=== PATIENT | male | born 1935 | race Caucasian/White ===

== ENCOUNTER 2017-07-19 23:31 | Inpatient (IN) | payer OTHER, MEDICARE ==
[~2017-07-19] VITALS: Ht 175.3 cm; Wt 92.0 kg
[~2017-07-19 23:31] MED LIST: AMLO5TAB2 PO; CEPH-460 PO; HYDR-3533 PO; LEVA750T PO; LIPI10TA PO; LISI-519 PO; METF1000 PO; PLAV75TA29 PO; TRIMSOL LEFT EAR
[2017-07-19 23:37] VITALS: BP 135/108; PULSE 118; RESP 26; TEMP 98.9; O2SAT 98
[2017-07-19 23:43] VITALS: O2SAT 97
[2017-07-19] MEDS ORDERED: NITROGLYCERIN 2% OINT 1 GM PACKET TOPICAL ONE (23:45)
[2017-07-19] MEDS ORDERED: RESP: ALBUTEROL 2.5 MG/IPRATROPIUM 0.5 MG NEB (SCH) INH ONE (23:45)
[2017-07-19] MEDS ORDERED: SODIUM CHLORIDE 0.9% FLUSH 10 ML FLUSH IVF PRN (23:45)
[2017-07-19] MEDS ORDERED: ASPIRIN 81 MG CHEW TAB CHEW ONE (23:45)
[2017-07-19] MEDS ORDERED: ISOS60TA PO (23:46)
[2017-07-19] MEDS ORDERED: FURO20TA PO (23:46)
[2017-07-19] MEDS ORDERED: VITA100036 PO (23:46)
[2017-07-20] VITALS (7 sets, daily range): BP systolic 100–141; BP diastolic 53–76; PULSE 50–108; RESP 16–20; TEMP 97.4–98.2; O2SAT 94–98
--- NOTE | 2017-07-20 00:04 | PD ---
HPI Chief Complaint: Respiratory Distress Time Seen by Provider: 23:33 Travel History International Travel<30 days: No Contact w/Intl Traveler<30days: No Traveled to known affect area: No History of Present Illness HPI The patient is an 82 year old male who presents to the [facility] emergency department with a history of reportedly suddenly feeling nauseated while drinking water prior to arrival. He reports that he walked over to a friend's house that lives nearby before calling ambulance services. The patient was concerned that he may be having another heart attack. The patient denies having any chest pain or chest pressure. He denies vomiting. He reports that he did experience dyspnea on exertion on the walk over to his friend's. The patient reports that he does have a prior history of smoking. He reports that he does use inhalers. He reports that he has had 3 days of increased fatigue, chest congestion, and a cough. The patient is unsure whether the cough is been productive of any mucus. The patient is unfortunately a poor historian. He cannot recall the name of his primary care physician or whether or not he has a hiv nurse. The patient was brought in by ambulance services. The patient was noted to have tachypnea prior to arrival. The patient was initially given a DuoNeb. The patient was noted to have crackles in the bases by ambulance services and was placed on CPAP. The patient's O2 saturation on room air was 96 -97%. The patient's respiratory distress and tachypnea improved on CPAP. The patient was noted to have bigeminy prior to arrival that resolved with oxygen administration. The patient denies having any known recent diarrhea. He reports that he has had a subjective fever, however he is unsure of how high his temperature was at the time that his temperature was elevated. He reports having generalized weakness. He denies having any one-sided weakness, numbness or tingling to his extremities, vision changes, facial droop, or difficulty with word finding ability. On review of systems otherwise, the patient denies any neck pain, abdominal pain, urinary symptoms, or other neurologic symptoms. [facility] Past Medical History Narrative Medical The patient's past medical history is significant for coronary artery disease, COPD, hypertension, hyperlipidemia, and kidney stones. Hx Anticoagulant Therapy: Yes (PLAVIX) Asthma: No Blood Disorders: No Anxiety: No Depression: No Heart Rhythm Problems: No Cancer: No Cardiac Catheterization: Yes Cardiovascular Problems: Yes (SC) High Cholesterol: Yes Chemotherapy: No Chest Pain: No Congestive Heart Failure: No COPD: Yes Diabetes: Yes Patient Takes Glucophage: Yes Diminished Hearing: No Endocrine: No Genitourinary: Yes (KIDNEY STONES) Hypertension: Yes Immune Disorder: No Kidney Stones: Yes Musculoskeletal: No Neurologic: No Psychiatric: No Reproductive: No Respiratory: Yes Myocardial Infarction: Yes Radiation Therapy: No Sleep Apnea: No Thyroid Disease: No Tetanus Vaccination: < 5 Years Influenza Vaccination: Yes Past Surgical History Narrative Surgical The patient's past surgical history is significant for a cardiac catheterization with stent placement. Coronary Stent: Yes Other Surgery: Yes (stent placement) Social History Alcohol Use: No (reportedly quit drinking alcohol approximate 5 months ago) Tobacco Use: No (QUIT 2014) Substance Use: No Allergies-Medications (Allergen,Severity, Reaction): Coded Allergies: No Known Allergies (Unverified , 07/19/17) Reported Meds & Prescriptions Reported Meds & Active Scripts Active Reported Vitamin D3 (Cholecalciferol) 1,000 Unit Cap 1,000 Units PO DAILY Isosorbide Mononitrate ER (Isosorbide Mononitrate) 60 Mg Tab 60 Mg PO DAILY Furosemide 20 Mg Tab 20 Mg PO DIRECTED Lipitor (Atorvastatin Calcium) 10 Mg Tab 10 Mg PO HS Plavix (Clopidogrel Bisulfate) 75 Mg Tab 75 Mg PO DAILY Lisinopril 5 Mg Tab 5 Mg PO DAILY Amlodipine (Amlodipine Besylate) 5 Mg Tab 5 Mg PO DAILY Metformin (Metformin HCl) 1,000 Mg Tab 1,000 Mg PO DAILY With a meal Review of Systems Except as stated in HPI: all other systems reviewed are Neg General / Constitutional: Positive: Fever, Chills Eyes: No: Visual changes HENT: Positive: Congestion, No: Headaches Cardiovascular: Positive: Dyspnea on exertion, No: Chest Pain or Discomfort Respiratory: Positive: Cough, Shortness of Breath Gastrointestinal: Positive: Nausea, Loss of Appetite, No: Vomiting, Diarrhea, Abdominal Pain, Changes in Bowel Habits, Indigestion Genitourinary: No: Dysuria Musculoskeletal: Positive: Myalgias, No: Pain Skin: No Rash Neurologic: Positive: Weakness (generalized weakness), No: Focal Abnormalities , Change in Mentation, Slurred Speech, Sensory Disturbance Psychiatric: No: Depression Endocrine: No: Polydipsia Hematologic/Lymphatic: No: Easy Bruising Physical Exam Narrative General: The patient is a well-developed well-nourished male in no acute distress. Head and Neck exam: Head is normocephalic atraumatic. Eyes: EOMI, pupils are equal round and reactive to light. Nose: Midline septum with pink mucous membranes Mouth: Dentition unremarkable. Moist mucus membranes. Posterior oropharynx is not erythematous. No tonsillar hypertrophy. Uvula midline. Airway patent. Neck: No palpable lymphadenopathy. No nuchal rigidity. No thyromegaly. Cardiovascular: Sinus tachycardia in the 1 teens without murmurs, gallops, or rubs. No pulse deficit to the extremities on simultaneous auscultation and palpation of his radial artery. Lungs: The patient has scattered rhonchi that clear with coughing. The patient has crackles audible in the left lower lung base. No significant wheezing is noted. Abdomen: Soft, without tenderness to palpation in all 4 quadrants of the abdomen. No guarding, rebound, or rigidity. Normal bowel sounds are audible. No tenderness on palpation of McBurney's point. Extremities: No clubbing, cyanosis, or edema. 2+ pulses in all 4 extremities. No calf tenderness on palpation. Back: No spinous process tenderness to palpation. No costovertebral angle tenderness to palpation. Neurologic Exam: Grossly nonfocal Skin Exam: No rash noted. Intact skin that is warm and dry. Data Data Last Documented VS Vital Signs Date Time Temp Pulse Resp B/P (MAP) Pulse Ox O2 Delivery O2 Flow Rate FiO2 07/19/17 23:43 97 Nasal Cannula 2.00 07/19/17 23:37 98.9 118 26 135/108 (117) Orders Orders Complete Blood Count With Diff (07/19/17 23:42) Comprehensive Metabolic Panel (07/19/17 23:42) B-Type Natriuretic Peptide (07/19/17 23:42) Act Partial Throm Time (Ptt) (07/19/17 23:42) Prothrombin Time / Inr (Pt) (07/19/17 23:42) Magnesium (Mg) (07/19/17 23:42) Ckmb (Isoenzyme) Profile (07/19/17 23:42) Troponin I (07/19/17 23:42) Urinalysis - C+S If Indicated (07/19/17 23:42) Blood Culture (07/19/17 23:42) Iv Access Insert/Monitor (07/19/17 23:42) Electrocardiogram (07/19/17 23:42) Ecg Monitoring (07/19/17 23:42) Oximetry (07/19/17 23:42) Oxygen Administration (07/19/17 23:42) Chest, Single Ap (07/19/17 23:42) Sodium Chloride 0.9% Flush (Ns Flush) (07/19/17 23:45) Albuterol-Ipratropium Neb (Duoneb Neb) (07/19/17 23:45) Lactic Acid Sepsis Protocol (07/19/17 23:42) Aspirin Chew (Aspirin Chew) (07/19/17 23:45) Nitroglycerin 2% Oint (Nitroglycerin 2% (07/19/17 23:45) Levofloxacin 750 Mg Premix Inj (Levaquin (07/20/17 01:15) Sodium Chlorid 0.9% 500 Ml Inj (Ns 500 M (07/20/17 02:00) Ct Pulmonary Angiogram (07/20/17 01:47) Methylprednisolone So Succ Inj (Solumedr (07/20/17 02:00) Admit Order (Ed Use Only) (07/20/17 01:51) Labs Laboratory Tests Test 07/20/17 00:00 White Blood Count 12.5 TH/MM3 Red Blood Count 5.16 MIL/MM3 Hemoglobin 15.9 GM/DL Hematocrit 48.5 % Mean Corpuscular Volume 94.0 FL Mean Corpuscular Hemoglobin 30.8 PG Mean Corpuscular Hemoglobin Concent 32.8 % Red Cell Distribution Width 15.0 % Platelet Count 340 TH/MM3 Mean Platelet Volume 8.6 FL Neutrophils (%) (Auto) 74.3 % Lymphocytes (%) (Auto) 14.9 % Monocytes (%) (Auto) 9.1 % Eosinophils (%) (Auto) 1.0 % Basophils (%) (Auto) 0.7 % Neutrophils # (Auto) 9.2 TH/MM3 Lymphocytes # (Auto) 1.9 TH/MM3 Monocytes # (Auto) 1.1 TH/MM3 Eosinophils # (Auto) 0.1 TH/MM3 Basophils # (Auto) 0.1 TH/MM3 CBC Comment DIFF FINAL Differential Comment Prothrombin Time 11.4 SEC Prothromb Time International Ratio 1.0 RATIO Activated Partial Thromboplast Time 29.4 SEC Blood Urea Nitrogen 23 MG/DL Creatinine 1.54 MG/DL Random Glucose 145 MG/DL Total Protein 7.7 GM/DL Albumin 3.4 GM/DL Calcium Level 8.9 MG/DL Magnesium Level 2.0 MG/DL Alkaline Phosphatase 56 U/L Aspartate Amino Transf (AST/SGOT) 11 U/L Alanine Aminotransferase (ALT/SGPT) 22 U/L Total Bilirubin 0.7 MG/DL Sodium Level 138 MEQ/L Potassium Level 4.0 MEQ/L Chloride Level 106 MEQ/L Carbon Dioxide Level 23.6 MEQ/L Anion Gap 8 MEQ/L Estimat Glomerular Filtration Rate 44 ML/MIN Lactic Acid Level 1.5 mmol/L Total Creatine Kinase 41 U/L Troponin I 0.02 NG/ML B-Type Natriuretic Peptide 162 PG/ML MDM Medical Decision Making Medical Screen Exam Complete: Yes Emergency Medical Condition: Yes Medical Record Reviewed: Yes Interpretation(s) Last Impressions CT Angiography 07/20/17 0147 Signed Impressions: Service Date/Time: Thursday, July 20, 2017 02:18 - CONCLUSION: 1. 8mm nodule superior segment left lower lobe with some spiculation. Finding new since 2014. Primary consideration is small bronchogenic carcinoma. This could be worked up as an outpatient initially with PET/CT. Percutaneous biopsy cardi difficult due to small size and location under left posterior rib. 2. Negative for pulmonary embolus. Ulisses Robledo MD Chest X-Ray 07/19/17 8805 Signed Impressions: Service Date/Time: Wednesday, July 19, 2017 23:58 - CONCLUSION: 1. No acute findings. Ulisses Robledo MD Differential Diagnosis Pneumonia, versus congestive heart failure, versus acute coronary syndrome Narrative Course During the course of the patients emergency department visit, the patients history, examination, and differential diagnosis were reviewed with the patient. The patient had IV access obtained and blood work sent for analysis. The patient was placed on a court recording monitor with oximetry and blood pressure monitoring. An ECG was done on arrival. The patient's ECG reveals a sinus tachycardia rate of 1:15, no acute ST segment elevation is noted. T waves are inverted in V1. QRS duration is 88 ms, QTC 396 ms. The patient was initially provided aspirin 324 mg by mouth 1. The patient was given nitroglycerin 1 inch paste the chest wall. The patient was given a DuoNeb 1. After the chest x-ray showed no evidence of acute infiltrate suggestive of pneumonia. The patient was given Levaquin 750 mg IV for bronchitis, Solu-Medrol 125 mg IV. The patients laboratory studies were reviewed and remarkable for a white count of 12.5, hemoglobin 15.9, platelets 340 with neutrophils 74.3, CMP is remarkable for a BUN of 23, creatinine 1.54, glucose 145, AST 11, CPK 41, troponin I 0.02, BNP is 162, PT 11.4, PTT 29.4, urinalysis shows concentrated urine 30 protein glucose 150, chest x-ray shows no acute findings. A CTA to rule out PE shows no evidence of pulmonary embolism, however and 8 mm nodule superior segment left lower lobe with some spiculations are noted findings are new since 2014, primary consideration is a small bronchogenic carcinoma. The patients results were discussed with the patient, including the plan of care. I explained that further testing and/ or monitoring is indicated based on the patients history, examination, and/ or laboratory findings. Therefore, I recommended admission for additional evaluation. The patient expressed understanding and was agreeable with this plan. The patient was admitted to the hospital in stable condition and sent to a bed under the care of the [facility]. Physician Communication Physician Communication The patient's case was discussed with Dr. Harmon who did agree to admit the patient for further evaluation and treatment at this time. Diagnosis Primary Impression: COPD exacerbation Additional Impressions: Lung nodule, solitary Bronchitis Admitting Information Admitting Physician Requests: Admit Kiarra Horne MD Jul 20, 2017 00:04
[2017-07-20 00:20] LABS: AUTOMATED NEUTROPHIL # 9.2 TH/MM3 (1.8-7.7); BASOPHIL # 0.1 TH/MM3 (0-0.2); BASOPHIL % 0.7 % (0.0-2.0); EOSINOPHIL # 0.1 TH/MM3 (0-0.4); HEMATOCRIT 48.5 % (39.0-51.0); HEMO FLAGS DIFF FINAL; LYMPH % 14.9 % (9.0-44.0); LYMPHOCYTE # 1.9 TH/MM3 (1.0-4.8); MEAN CORPUSCULAR HEMOGLOBIN 30.8 PG (27.0-34.0); MEAN CORPUSCULAR HGB CONC 32.8 % (32.0-36.0); MONO % 9.1 % (0.0-8.0); NEUT % 74.3 % (16.0-70.0); PLATELET COUNT 340 TH/MM3 (150-450); RED BLOOD COUNT 5.16 MIL/MM3 (4.50-5.90); WHITE BLOOD COUNT 12.5 TH/MM3 (4.0-11.0)
--- NOTE | 2017-07-20 00:29 | RADRPT ---
EXAM DATE/TIME: 07/19/2017 23:58 [facility] COMPARISON: CHEST SINGLE AP, May 28, 2016, 5:34. INDICATIONS : Shortness of breath MEDICAL HISTORY : Cardiovascular disease. Hypertension. Renal calculi. Diabetes. SURGICAL HISTORY : None. ENCOUNTER: Initial ACUITY: 1 day PAIN SCORE: 7/10 LOCATION: Bilateral chest FINDINGS: A single view of the chest demonstrates the lungs to be symmetrically aerated without evidence of mas s, infiltrate or effusion. The cardiomediastinal contours are unremarkable except tortuous aorta. O sseous structures are intact. CONCLUSION: 1. No acute findings. Ulisses Robledo MD on July 20, 2017 at 0:26 Board Certified Radiologist. This report was verified electronically.
[2017-07-20 00:32] LABS: APTT (PATIENT) 29.4 SEC (24.3-30.1); PROTHROMBIN TIME - PATIENT 11.4 SEC (9.8-11.6)
[2017-07-20] MEDS ORDERED: LEVOFLOXACIN 750 MG PREMIX INJ 150 ML IV ONE (01:15)
[2017-07-20 01:29] LABS: ANION GAP 8 MEQ/L (5-15); AST (GOT) 11 U/L (15-37); BICARBONATE 23.6 MEQ/L (21.0-32.0); BLOOD UREA NITROGEN 23 MG/DL (7-18); CHLORIDE 106 MEQ/L (98-107); GLOMERULAR FILTRATION RATE 44 ML/MIN (>89); SODIUM (NA) 138 MEQ/L (136-145)
[2017-07-20 01:34] LABS: ALKALINE PHOSPHATASE 56 U/L (45-117); ALT (GPT) 22 U/L (12-78); TOTAL BILIRUBIN ADULT 0.7 MG/DL (0.2-1.0)
[2017-07-20 01:41] LABS: CREATINE KINASE 41 U/L (39-308)
[2017-07-20] MEDS ORDERED: RESP: ALBUTEROL 2.5 MG/3 ML NEB (PRN) INH (02:00)
[2017-07-20] MEDS ORDERED: methylPREDNISolone SOD SUCC 125 MG/2 ML VIAL IV PUSH ONE (02:00)
[2017-07-20] MEDS ORDERED: SODIUM CHLORID 0.9% 500 ML INJ 500 ML IV ONE (02:00)
[2017-07-20] MEDS ORDERED: SODIUM CHLORIDE 0.9% FLUSH 10 ML FLUSH IV FLUSH PRN (02:00)
[2017-07-20] MEDS ORDERED: IOHEXOL 350 MG/ML 10 ML VIAL (for RAD DIAG) IVCONTRAST ONE (02:19)
[2017-07-20] MEDS: METFORMIN HOLD POST IV CONTRAST SCH ×2 (02:30)
--- NOTE | 2017-07-20 02:42 | RADRPT ---
EXAM DATE/TIME: 07/20/2017 02:18 [facility] COMPARISON: CT THORAX W CONTRAST, November 25, 2014, 19:05. INDICATIONS : Shortness of breath and general weakness. IV CONTRAST: 80 cc Omnipaque 350 (iohexol) IV RADIATION DOSE: 23.31 CTDIvol (mGy) MEDICAL HISTORY : Chronic obstructive pulmonary disease. Cardiovascular disease Hypertension.Renal calculi. SURGICAL HISTORY : Cardiac catherization. Coronary stent. ENCOUNTER: Initial ACUITY: 3 days PAIN SCALE: 0/10 LOCATION: chest TECHNIQUE: Volumetric scanning of the chest was performed using a pulmonary embolism protocol MIP images were re constructed. Using automated exposure control and adjustment of the mA and/or kV according to patien t size, radiation dose was kept as low as reasonably achievable to obtain optimal diagnostic quality images. DICOM format image data is available electronically for review and comparison. Follow-up recommendations for detected pulmonary nodules are based at a minimum on nodule size and pa tient risk factors according to Fleischner Society Guidelines. FINDINGS: Compare October 2014. There is a new 8mm nodule super segment left lower lobe with spiculations that extend to a greater diameter. Primary consideration is small primary lung cancer. Dependent atelectasis in both lungs. No significant pleural or pericardial effusion. Dense coronary c alcifications. No filling defects to suggest pulmonary embolus. Upper abdomen reveals fatty liver. CONCLUSION: 1. 8mm nodule superior segment left lower lobe with some spiculation. Finding new since 2014. Primary consideration is small bronchogenic carcinoma. This could be worked up as an outpatient initially wi PET/CT. Percutaneous biopsy cardi difficult due to small size and location under left posterior ri b. 2. Negative for pulmonary embolus. Ulisses Robledo MD on July 20, 2017 at 2:34 Board Certified Radiologist. This report was verified electronically.
[2017-07-20] MEDS: RESP: ALBUTEROL 2.5 MG/IPRATROPIUM 0.5 MG NEB (SCH) INH ×4 (03:26→19:46)
--- NOTE | 2017-07-20 03:27 | HHI.HP ---
[facility] Jase Lezama M.D. Admission Diagnosis COPD exacerbation, bronchitis Diagnoses: Chief Complaint: Nausea, shortness of breath Travel History International Travel<30 Days: No Contact w/Intl Traveler <30 Da: No Traveled to Known Affected Are: No History of Present Illness 82-year-old male with a medical history significant for COPD, coronary artery disease, hypertension who presented to the emergency room via EMS due to concern that he was having a heart attack. The patient is a very poor historian. He reports after eating some eggs earlier, he had a sudden onset of nausea and was not able to breathe right. He has had occasional cough. He denies any chest pain. No vomiting. On my evaluation in the emergency room, the patient reports he is feeling back to his baseline. Review of Systems ROS Limitations: Poor Historian Constitutional: COMPLAINS OF: Fatigue, DENIES: Fever, Chills Respiratory: COMPLAINS OF: Shortness of breath Cardiovascular: DENIES: Chest pain, Palpitations Gastrointestinal: COMPLAINS OF: Nausea, DENIES: Vomiting Genitourinary: DENIES: Dysuria Except as stated in HPI: all other systems reviewed are Neg Past Family Social History Past Medical History COPD, coronary artery disease, hypertension Past Surgical History None reported. Allergies: Coded Allergies: No Known Allergies (Unverified , 07/19/17) Family History Patient was adopted. Social History Patient used to smoke for many years. He quit a few years ago. He denies alcohol or illicit drugs. Physical Exam Vital Signs Vital Signs Date Time Temp Pulse Resp B/P (MAP) Pulse Ox O2 Delivery O2 Flow Rate FiO2 07/20/17 02:00 102 20 133/76 (95) 96 Nasal Cannula 2.00 07/19/17 23:43 97 Nasal Cannula 2.00 07/19/17 23:43 97 2.00 07/19/17 23:40 96 Nasal Cannula 2.00 07/19/17 23:37 98.9 118 26 135/108 (117) 98 Physical Exam GENERAL: Elderly male in no acute distress. SKIN: No rashes, ecchymoses or lesions. Cool and dry. HEAD: Atraumatic. Normocephalic.. EYES: Pupils equal round and reactive. Extraocular motions intact. No scleral icterus. No injection or drainage. ENT: Nose without bleeding, purulent drainage or septal hematoma. Throat without erythema, tonsillar hypertrophy or exudate. Uvula midline. Airway patent. NECK: Trachea midline. No JVD or lymphadenopathy. Supple, nontender, no meningeal signs. CARDIOVASCULAR: Regular rate and rhythm without murmurs, gallops, or rubs. RESPIRATORY: Air movement is fair. Breath sounds equal bilaterally. GASTROINTESTINAL: Abdomen soft, non-tender, nondistended. No hepato-splenomegaly , or palpable masses. No guarding. MUSCULOSKELETAL: Extremities without clubbing, cyanosis, or edema. NEUROLOGICAL: Awake and alert. Normal speech. Laboratory Laboratory Tests Test 07/20/17 00:00 White Blood Count 12.5 Red Blood Count 5.16 Hemoglobin 15.9 Hematocrit 48.5 Mean Corpuscular Volume 94.0 Mean Corpuscular Hemoglobin 30.8 Mean Corpuscular Hemoglobin Concent 32.8 Red Cell Distribution Width 15.0 Platelet Count 340 Mean Platelet Volume 8.6 Neutrophils (%) (Auto) 74.3 Lymphocytes (%) (Auto) 14.9 Monocytes (%) (Auto) 9.1 Eosinophils (%) (Auto) 1.0 Basophils (%) (Auto) 0.7 Neutrophils # (Auto) 9.2 Lymphocytes # (Auto) 1.9 Monocytes # (Auto) 1.1 Eosinophils # (Auto) 0.1 Basophils # (Auto) 0.1 CBC Comment DIFF FINAL Differential Comment Prothrombin Time 11.4 Prothromb Time International Ratio 1.0 Activated Partial Thromboplast Time 29.4 Blood Urea Nitrogen 23 Creatinine 1.54 Random Glucose 145 Total Protein 7.7 Albumin 3.4 Calcium Level 8.9 Magnesium Level 2.0 Alkaline Phosphatase 56 Aspartate Amino Transf (AST/SGOT) 11 Alanine Aminotransferase (ALT/SGPT) 22 Total Bilirubin 0.7 Sodium Level 138 Potassium Level 4.0 Chloride Level 106 Carbon Dioxide Level 23.6 Anion Gap 8 Estimat Glomerular Filtration Rate 44 Lactic Acid Level 1.5 Total Creatine Kinase 41 Troponin I 0.02 B-Type Natriuretic Peptide 162 Date/Time Source Procedure Growth Status 07/20/17 00:00 Blood Peripheral Aerobic Blood Culture Pending Received 07/20/17 00:00 Blood Peripheral Anaerobic Blood Culture Pending Received Result Diagram: 07/20/17 0000 07/20/[address] Angiography 07/20/17 0147 Signed Impressions: Service Date/Time: Thursday, July 20, 2017 02:18 - CONCLUSION: 1. 8mm nodule superior segment left lower lobe with some spiculation. Finding new since 2014. Primary consideration is small bronchogenic carcinoma. This could be worked up as an outpatient initially with PET/CT. Percutaneous biopsy cardi difficult due to small size and location under left posterior rib. 2. Negative for pulmonary embolus. Ulisses Robledo MD Chest X-Ray 07/19/17 0402 Signed Impressions: Service Date/Time: Wednesday, July 19, 2017 23:58 - CONCLUSION: 1. No acute findings. Ulisses Robledo MD [place] VTE Risk Assessment Caprini VTE Risk Assessment: Mod/High Risk (score >= 2) Caprini Risk Assessment Model Point Value = 1 Point Value = 2 Point Value = 3 Point Value = 5 Age 41-60 Minor surgery BMI > 25 kg/m2 Swollen legs Varicose veins or History of unexplained or recurrent spontaneous Oral contraceptives or hormone replacement Sepsis (< 1 month) Serious lung disease, including pneumonia (< 1 month) Abnormal pulmonary function Acute myocardial infarction Congestive heart failure (< 1 month) History of inflammatory bowel disease Medical patient at bed rest Age 61-74 Arthroscopic surgery Major open surgery (> 45 min) Laparoscopic surgery (> 45 min) Malignancy Confined to bed (> 72 hours) Immobilizing plaster cast Central venous access Age >= 75 History of VTE Family history of VTE Factor V Leiden Prothrombin [id number] Lupus anticoagulant Anticardiolipin antibodies Elevated serum homocysteine Heparin-induced thrombocytopenia Other congenital or acquired thrombophilia Stroke (< 1 month) Elective arthroplasty Hip, pelvis, or leg fracture Acute spinal cord injury (< 1 month) Prophylaxis Regimen Total Risk Factor Score Risk Level Prophylaxis Regimen 0-1 Low Early ambulation 2 Moderate Order ONE of the following: *Sequential Compression Device (SCD) *Heparin 5000 units SQ BID 3-4 Higher Order ONE of the following medications: *Heparin 5000 units SQ TID *Enoxaparin/Lovenox 40 mg SQ daily (WT < 150 kg, CrCl > 30 mL/min) *Enoxaparin/Lovenox 30 mg SQ daily (WT < 150 kg, CrCl > 10-29 mL/min) *Enoxaparin/Lovenox 30 mg SQ BID (WT < 150 kg, CrCl > 30 mL/min) AND/OR *Sequential Compression Device (SCD) 5 or more Highest Order ONE of the following medications: *Heparin 5000 units SQ TID (Preferred with Epidurals) *Enoxaparin/Lovenox 40 mg SQ daily (WT < 150 kg, CrCl > 30 mL/min) *Enoxaparin/Lovenox 30 mg SQ daily (WT < 150 kg, CrCl > 10-29 mL/min) *Enoxaparin/Lovenox 30 mg SQ BID (WT < 150 kg, CrCl > 30 mL/min) AND *Sequential Compression Device (SCD) Assessment and Plan Problem List: (1) Shortness of breath ICD Code: R06.02 - Shortness of breath (2) COPD (chronic obstructive pulmonary disease) ICD Code: J44.9 - Chronic obstructive pulmonary disease, unspecified Assessment and Plan 82-year-old male. Per patient is a very poor historian. He reported shortness of breath to EMS. On my evaluation, he states his back to his baseline. He cannot elaborate on the circumstances of his presentation to the hospital. Shortness of breath/possible mild COPD exacerbation: The patient was given a dose of IV Solu-Medrol. He states he is back to his baseline. It does not appear that he has been on any chronic medications for COPD. - Continue breathing treatments as needed - Supplemental oxygen as needed - We'll continue with oral steroids. Monitor off antibiotics - If respiratory status remained stable, the patient can be discharged later today. Lung mass: This was documented last year and the patient was told to follow-up outpatient. Apparently he did not. I discussed with him again. Continue home medications for his chronic conditions including CAD. The patient may benefit from home health and social media director to ensure that he is taking his medications correctly and has adequate resources for outpatient follow-up. Discussed Condition With ED physician, Martinez Montgomery MD Jul 20, 2017 03:27
[2017-07-20] MEDS ORDERED: GLUCAGON 1 MG/ML VIAL OTHER PRN (06:00)
[2017-07-20] MEDS ORDERED: DEXTROSE 50% IN WATER 50 ML VIAL(D50) IV PUSH PRN (06:00)
[2017-07-20] MEDS: predniSONE 20 MG TAB PO SCH (09:25)
[2017-07-20] MEDS: SODIUM CHLORIDE 0.9% FLUSH 10 ML FLUSH IV FLUSH SCH ×2 (09:25→21:27)
[2017-07-20] MEDS: INSULIN ASPART SUPPLEMENTAL SCALE SQ SCH ×4 (09:26→22:05)
[2017-07-20] MEDS: amLODIPine BESYLATE 5 MG TAB PO SCH (09:27)
[2017-07-20] MEDS: CLOPIDOGREL 75 MG TAB PO SCH (09:27)
[2017-07-20] MEDS: HEPARIN SODIUM - SQ 10,000 UNITS/ML VIAL SQ SCH ×2 (09:27→21:27)
[2017-07-20] MEDS: LISINOPRIL 5 MG TAB PO SCH (09:27)
[2017-07-20] MEDS: ISOSORBIDE MONONITRATE 60 MG TAB PO SCH (09:27)
[2017-07-20 10:39] LABS: BACTERIA, URINE RARE /hpf; BLOOD, URINE NEG (NEG); GLUCOSE,URINE 150 mg/dL (NEG); HYALINE CAST, URINE 2 /lpf (RARE); KETONE, URINE NEG (NEG); MUCUS URINE MOD /lpf (OCC); NITRITE,URINE NEG (NEG); PH, URINE 5.5 (5.0-8.5); SQUAMOUS EPITHELIAL CELL URINE <1 /hpf (0-5); URINE COLOR YELLOW (YELLW/STRAW)
[2017-07-20 10:44] LABS: COMMENT (UR) CULT NOT INDICATED; CULTURE IF INDICATED CULT NOT INDICATED
--- NOTE | 2017-07-20 11:19 | HHI.PR ---
Subjective Remarks Follow-up for shortness of breath and diaphoresis. The patient is not a good historian. The patient states that yesterday he had an episode of sweating with shortness of breath. He states he had a previous episode like this in 2012 when he had his stent placed. He did not have any chest pain during that episode either. He did notice an episode of right sternal chest "rattling" about 2 days ago that was not related to exertion. His breathing is back to baseline today. He does have home inhalers for COPD. He denies any leg swelling. 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 His PCP is Dr. Ernst. He is very concerned he might have had a heart attack again because his symptoms were so similar to 2013. He states that it's been a long time since his previous stress test. He would appreciate doing a stress test while admitted. Objective Vitals Vital Signs Date Time Temp Pulse Resp B/P (MAP) Pulse Ox O2 Delivery O2 Flow Rate FiO2 07/20/17 10:25 96 Nasal Cannula 2.00 07/20/17 07:34 97.4 81 16 133/66 (88) 96 07/20/17 04:00 98.1 108 19 141/65 (90) 98 07/20/17 02:00 102 20 133/76 (95) 96 Nasal Cannula 2.00 07/19/17 23:43 97 Nasal Cannula 2.00 07/19/17 23:43 97 2.00 07/19/17 23:40 96 Nasal Cannula 2.00 07/19/17 23:37 98.9 118 26 135/108 (117) 98 Result Diagram: 07/20/17 0000 07/20/17 [address] Angiography 07/20/17 0147 Signed Impressions: Service Date/Time: Thursday, July 20, 2017 02:18 - CONCLUSION: 1. 8mm nodule superior segment left lower lobe with some spiculation. Finding new since 2014. Primary consideration is small bronchogenic carcinoma. This could be worked up as an outpatient initially with PET/CT. Percutaneous biopsy cardi difficult due to small size and location under left posterior rib. 2. Negative for pulmonary embolus. Ulisses Robledo MD Chest X-Ray 07/19/17 [id number] Signed Impressions: Service Date/Time: Wednesday, July 19, 2017 23:58 - CONCLUSION: 1. No acute findings. Ulisses Robledo MD Objective Remarks GENERAL: Well-developed well-nourished. In no acute distress. SKIN: Warm and dry. No lesions noted. HEENT: Normocephalic. Pupils equal and round. Mucous membranes pink and moist. CARDIOVASCULAR: Regular rate and rhythm. No murmur appreciated. RESPIRATORY: No accessory muscle use. Clear to auscultation. Breath sounds equal bilaterally. No wheezing or crackles. GASTROINTESTINAL: Abdomen soft, non-tender, nondistended. Bowel sounds x4. MUSCULOSKELETAL: No obvious deformities. No clubbing or cyanosis. No edema. NEUROLOGICAL: Awake and alert. No focal neurological deficits. Moves upper and lower extremities spontaneously. Normal speech. PSYCHIATRIC: Appropriate mood and affect; insight and judgment normal. A/P Problem List: (1) Shortness of breath ICD Code: R06.02 - Shortness of breath Status: Acute (2) COPD (chronic obstructive pulmonary disease) ICD Code: J44.9 - Chronic obstructive pulmonary disease, unspecified Status: Chronic (3) Ischemic cardiomyopathy ICD Code: I25.5 - Ischemic cardiomyopathy Status: Chronic Assessment and Plan 82-year-old male with a past medical history of CAD, ischemic cardiomyopathy, COPD who presented for shortness of breath and diaphoresis Shortness of breath/diaphoresis: With history of ischemic cardiomyopathy, concern for anginal equivalent especially with previous presentation. Does not appear to be in COPD or CHF exacerbation clinically. Reviewed: EKG with sinus tachycardia, no specific ischemic changes. Initial troponin 0.02. BNP 162. Chest x-ray clear. Pulmonary angiogram with abnormal lung nodule, no PE. -Trend cardiac enzymes and EKGs. Plan for stress test in the a.m. if these are unremarkable. -Continue Plavix, statin, Imdur -Given prednisone 40 mg daily 3 for possible mild COPD exacerbation -Scheduled and as needed nebs History of ischemic cardiomyopathy: Previous catheterization from 2012 showed EF 25%. -Check echocardiogram to evaluate known ischemic cardiomyopathy. Needs to establish with cardiology as outpatient. -Continue lisinopril and Lasix -Start metoprolol Lung mass:This was documented last year and the patient was told to follow-up outpatient. Apparently he did not. Patient was informed again of the findings. -Strongly encourage outpatient follow-up- Diabetes mellitus: -Hold home metformin -Monitor Accu-Cheks and cover with SSI needed CKD stage III: Creatinine 1.54, previously 1.52 on 06/05/16. -Monitor DVT prophylaxis: Heparin Discharge Planning Follow-up results of the stress test tomorrow. Jarocho Carver Jul 20, 2017 11:19
--- NOTE | 2017-07-20 13:57 | EKG ---
Date Performed: 07/19/2017 Time Performed: 23:38:28 PTAGE: 82 years EKG: SINUS TACHYCARDIA POSSIBLE LEFT ATRIAL ENLARGEMENT MARKED LEFT AXIS DEVIATION PATTERN CONSI STENT WITH PULMONARY DISEASE PROBABLE SEPTAL MYOCARDIAL INFARCTION ABNORMAL ECG Compared to prior tra cing no significant change PREVIOUS TRACING : 06/05/2016 05.49 DOCTOR: Hosea Pack Interpretating Date/Time 07/20/2017 13:55:30
[2017-07-20] MEDS ORDERED: PILL SPLITTER OTHER PRN (18:15)
[2017-07-20] MEDS ORDERED: METOPROLOL TARTRATE 25 MG TAB PO SCH (21:00)
[2017-07-20] MEDS: ATORVASTATIN 10 MG TAB PO SCH (21:26)
[2017-07-20] MEDS: METOPROLOL TARTRATE 25 MG TAB PO SCH (21:26)
[2017-07-21] VITALS (8 sets, daily range): BP systolic 116–140; BP diastolic 59–78; PULSE 73–125; RESP 16–20; TEMP 97.4–98.3; O2SAT 95–98
[2017-07-21] MEDS: METFORMIN HOLD POST IV CONTRAST SCH ×2 (02:30)
--- NOTE | 2017-07-21 06:41 | ECHRPT ---
Indication: CHEST PAIN CONCLUSIONS Normal left ventricular size. Wall thickness is normal. The left ventricular systolic function is severely reduced with an estimated ejection fraction in th e range of 25-30%. There was limited left ventricular wall motion assessment due to poor endocardial visualization. Mild thickening of the mitral valve leaflets. Aortic valve sclerosis is present. Trace aortic valve regurgitation. BP: / HR: Rhythm: Other MEASUREMENTS (Male / Female) Normal Values Technical Quality:Technically difficult study 2D ECHO LV Diastolic Diameter PLAX 4.8 cm 4.2 - 5.9 / 3.9 - 5.3 cm LV Systolic Diameter PLAX 4.3 cm IVS Diastolic Thickness 1.0 cm 0.6 - 1.0 / 0.6 - 0.9 cm LVPW Diastolic Thickness 0.7 cm 0.6 - 1.0 / 0.6 - 0.9 cm LV Relative Wall Thickness 0.4 LA Systolic Diameter LX 3.5 cm 3.0 - 4.0 / 2.7 - 3.8 cm M-MODE Aortic Root Diameter MM 3.6 cm AV Cusp Separation MM 1.9 cm DOPPLER Mitral E Point Velocity 58.6 cm/s Mitral A Point Velocity 107.0 cm/s Mitral E to A Ratio 0.5 TR Peak Velocity 242.0 cm/s TR Peak Gradient 23.4 mmHg Right Atrial Pressure 10.0 mmHg Pulmonary Artery Systolic Pressu 33.4 mmHg Right Ventricular Systolic Press 33.4 mmHg FINDINGS LEFT VENTRICLE Normal left ventricular size. Wall thickness is normal. The left ventricular systolic function is severely reduced with an estimated ejection fraction in th e range of 25-30%. There was limited left ventricular wall motion assessment due to poor endocardial visualization. RIGHT VENTRICLE Normal right ventricular size and systolic function. LEFT ATRIUM The left atrial size is normal. RIGHT ATRIUM The right atrial size is normal. ATRIAL SEPTUM Normal atrial septal thickness without atrial level shunting by limited color doppler interrogation. AORTA The aortic root and proximal ascending aorta are normal in size on limited imaging. MITRAL VALVE Mild thickening of the mitral valve leaflets. AORTIC VALVE Aortic valve sclerosis is present. Trace aortic valve regurgitation. TRICUSPID VALVE The estimated pulmonary arterial pressure is 33.4 mmHg. PULMONARY VALVE No pulmonary valve regurgitation or stenosis. VESSELS The inferior vena cava is normal in size. PERICARDIUM No pericardial effusion. Qamar Bethea MD, FACC (Electronically Signed) Final Date:21 July 2017 06:40
[2017-07-21] MEDS: RESP: ALBUTEROL 2.5 MG/IPRATROPIUM 0.5 MG NEB (SCH) INH ×3 (07:23→19:30)
[2017-07-21 07:45] LABS: AUTOMATED NEUTROPHIL # 12.6 TH/MM3 (1.8-7.7); BASOPHIL % 0.2 % (0.0-2.0); EOSINOPHIL % 0.2 % (0.0-4.0); HEMATOCRIT 48.2 % (39.0-51.0); HEMO FLAGS DIFF FINAL; LYMPH % 6.4 % (9.0-44.0); LYMPHOCYTE # 0.9 TH/MM3 (1.0-4.8); MEAN CELL VOLUME 99.5 FL (80.0-100.0); MEAN CORPUSCULAR HEMOGLOBIN 31.4 PG (27.0-34.0); MEAN CORPUSCULAR HGB CONC 31.6 % (32.0-36.0); MONO % 6.8 % (0.0-8.0); NEUT % 86.4 % (16.0-70.0); PLATELET COUNT 305 TH/MM3 (150-450); RED BLOOD COUNT 4.84 MIL/MM3 (4.50-5.90); RED CELL DISTRIBUTION WIDTH 16.3 % (11.6-17.2); WHITE BLOOD COUNT 14.6 TH/MM3 (4.0-11.0)
[2017-07-21 08:52] LABS: BICARBONATE 18.3 MEQ/L (21.0-32.0); POTASSIUM 5.7 MEQ/L (3.5-5.1)
[2017-07-21] MEDS: amLODIPine BESYLATE 5 MG TAB PO SCH (09:06)
[2017-07-21] MEDS: HEPARIN SODIUM - SQ 10,000 UNITS/ML VIAL SQ SCH ×2 (09:06→20:34)
[2017-07-21] MEDS: METOPROLOL TARTRATE 25 MG TAB PO SCH ×2 (09:06→20:34)
[2017-07-21] MEDS: predniSONE 20 MG TAB PO SCH (09:07)
[2017-07-21] MEDS: CLOPIDOGREL 75 MG TAB PO SCH (09:07)
[2017-07-21] MEDS: ISOSORBIDE MONONITRATE 60 MG TAB PO SCH (09:08)
[2017-07-21] MEDS: INSULIN ASPART SUPPLEMENTAL SCALE SQ SCH ×4 (09:08→21:00)
[2017-07-21] MEDS: SODIUM CHLORIDE 0.9% FLUSH 10 ML FLUSH IV FLUSH SCH ×2 (09:08→21:00)
[2017-07-21] MEDS: LISINOPRIL 5 MG TAB PO SCH (09:09)
[2017-07-21] MEDS ORDERED: SODIUM CHLOR 0.9% 1000 ML INJ 1,000 ML IV SCH ×2 (09:30→17:00)
--- NOTE | 2017-07-21 10:19 | HHI.PR ---
Subjective Remarks Follow up for chest pain, shortness of breath, diaphoresis. The patient is an extremely poor historian. He reports he had an episode of chest pain overnight that lasted about 15minutes, now resolved. He cannot localize or describe the pain. He states he didn't tell anyone because it went away. He reports continued mild shortness of breath and some upper airway congestion, overall improving. Denies any fevers/chills. Denies any other medical complaints at this time. Objective Vitals Vital Signs Date Time Temp Pulse Resp B/P (MAP) Pulse Ox O2 Delivery O2 Flow Rate FiO2 07/21/17 07:23 96 Nasal Cannula 2.00 07/21/17 07:17 97.5 91 16 140/75 (96) 95 07/21/17 04:16 98.3 92 18 122/73 (89) 98 07/21/17 00:38 98.1 73 18 116/59 (78) 98 07/20/17 19:53 98.2 87 18 105/53 (70) 97 07/20/17 16:55 98.1 89 16 100/57 (71) 98 07/20/17 11:27 97.4 50 16 125/60 (81) 94 07/20/17 10:25 96 Nasal Cannula 2.00 I/O 07/20/17 07/20/17 07/20/17 07/21/17 07/21/17 07/21/17 07:00 15:00 23:00 07:00 15:00 23:00 Intake Total 650 ml Balance 650 ml Intake IV Total 650 ml Result Diagram: 07/21/17 0600 07/21/17 [address] Angiography 07/20/17 0147 Signed Impressions: Service Date/Time: Thursday, July 20, 2017 02:18 - CONCLUSION: 1. 8mm nodule superior segment left lower lobe with some spiculation. Finding new since 2014. Primary consideration is small bronchogenic carcinoma. This could be worked up as an outpatient initially with PET/CT. Percutaneous biopsy cardi difficult due to small size and location under left posterior rib. 2. Negative for pulmonary embolus. Ulisses Robledo MD Chest X-Ray 07/19/17 [id number] Signed Impressions: Service Date/Time: Wednesday, July 19, 2017 23:58 - CONCLUSION: 1. No acute findings. Ulisses Robledo MD Objective Remarks GENERAL: Well-nourished, well-developed elderly male patient in NAD. SKIN: Warm and dry. No rash. HEENT: Normocephalic. Atraumatic.Pupils equal and round. Mucous membranes pink and moist. CARDIOVASCULAR: Regular rate and rhythm. S1, S2 noted. No murmur appreciated. RESPIRATORY: No accessory muscle use. Some mild upper airway congestion noted, otherwise clear to auscultation. Breath sounds equal bilaterally. GASTROINTESTINAL: Abdomen soft, non-tender, nondistended. Normoactive bowel sounds x4. MUSCULOSKELETAL: No obvious deformities. Extremities without clubbing, cyanosis , or edema. NEUROLOGICAL: Awake and alert. No obvious cranial nerve deficits. Motor grossly within normal limits. Normal speech. PSYCHIATRIC: Appropriate mood and affect; insight and judgment normal. Medications and IVs Current Medications Medications (Trade) Dose Ordered Sig/Maury Route Start Time Stop Time Status Last Admin (Norvasc) 5 mg DAILY PO 07/20/17 09:00 07/21/17 09:06 (Lipitor) 10 mg HS PO 07/20/17 21:00 07/20/17 21:26 (Plavix) 75 mg DAILY PO 07/20/17 09:00 07/21/17 09:07 (Prinivil) 5 mg DAILY PO 07/20/17 09:00 07/21/17 09:09 (NS Flush) 2 ml BID IV FLUSH 07/20/17 09:00 07/21/17 09:08 (NS Flush) 2 ml UNSCH PRN IV FLUSH 07/20/17 02:00 (Albuterol Neb) 2.5 mg Q2HR NEB PRN INH 07/20/17 02:00 (Deltasone) 40 mg DAILY PO 07/20/17 09:00 07/21/17 09:07 (Heparin Inj) 5,000 units Q12H SQ 07/20/17 09:00 07/21/17 09:06 (D50w (Vial) Inj) 50 ml UNSCH PRN IV PUSH 07/20/17 06:00 (Glucagon Inj) 1 mg UNSCH PRN OTHER 07/20/17 06:00 (NovoLOG SUPPLEMENTAL SCALE) 1 ACHS SLIDING SCALE SQ 07/20/17 08:00 07/21/17 09:08 (Imdur) 60 mg DAILY PO 07/20/17 09:00 07/21/17 09:08 (Duoneb Neb) 1 ampule Q6HR WHILE AWAKE NEB INH 07/20/17 14:00 07/21/17 07:23 (Lopressor) 12.5 mg BID PO 07/20/17 21:00 07/21/17 09:06 (Pill Splitter) 1 ea UNSCH PRN OTHER 07/20/17 18:15 Miscellaneous Information HOLD METFORMIN FOR... Q24H .XX 07/20/17 02:30 07/23/17 02:29 Miscellaneous Information HOLD METFORMIN FOR... Q24H .XX 07/20/17 02:30 07/22/17 02:29 Sodium Chloride 1,000 ml @ 125 mls/hr Q8H IV 07/21/17 09:30 07/21/17 17:29 A/P Problem List: (1) Shortness of breath ICD Code: R06.02 - Shortness of breath Status: Acute (2) COPD (chronic obstructive pulmonary disease) ICD Code: J44.9 - Chronic obstructive pulmonary disease, unspecified Status: Chronic (3) Ischemic cardiomyopathy ICD Code: I25.5 - Ischemic cardiomyopathy Status: Chronic Assessment and Plan 82-year-old male with a past medical history of CAD, ischemic cardiomyopathy, COPD who presented for shortness of breath and diaphoresis Chest Pain/Shortness of breath/Diaphoresis: patient presented concerned he was having a heart attack, with history of ischemic cardiomyopathy, concern for ACS. Does not appear to be in COPD or CHF exacerbation clinically. Reviewed: EKG with sinus tachycardia, no specific ischemic changes. Initial troponin 0.02. BNP 162. CXR clear. Pulmonary angiogram with abnormal lung nodule, no PE. -ACS ruled out with negative serial cardiac enzymes and EKG without acute ischemic changes. -Continue Plavix, statin, Imdur -Symptoms improving -Checking nuclear stress test today -1430hrs: Nuclear stress test abnormal, showed moderate size severe lateral/ inferolateral and apical perfusion abnormality with moderate redistribution. Will consult cardiology. Check lipid panel in am, continue aspirin. History of ischemic cardiomyopathy: Previous catheterization from 2012 showed EF 25%. -Echocardiogram showed EF 25-30%. -Needs to establish with cardiology as outpatient. -Continue lisinopril and Lasix -Started metoprolol Lung mass:This was documented last year and the patient was told to follow-up outpatient. Apparently he did not. Patient was informed again of the findings. -Strongly encourage outpatient follow-up Diabetes mellitus: -Hold home metformin -Monitor Accu-Cheks and cover with SSI needed CKD stage III: Creatinine 1.54, previously 1.52 on 06/05/16. -Monitor, slightly worse overnight, Cr increased to 1.8, will give IVF and repeat labs COPD: chronic, possibly mild exacerbation upon arrival, now resolved -Given prednisone 40 mg daily 3 for possible mild COPD exacerbation (d/c now secondary to confusion) -Scheduled and as needed nebs Hyperkalemia: K 5.7, unclear etiology -give IVF, repeat labs today Acute Encephalopathy: patient slightly more altered today, suspect secondary to steroids vs uremia. -discontinue steroids as patient's lungs are clear -give IVF -check repeat BMP, ammonia, TSH -monitor neuro checks DVT prophylaxis: Heparin Discharge Planning Await cardiology evaluation and further clinical improvement. Katelyn Lopez PA-C Jul 21, 2017 10:19
[2017-07-21] MEDS ORDERED: REGADENOSON INJ 0.4 MG/5 ML SYR ONE (11:31)
--- NOTE | 2017-07-21 12:05 | EKG ---
Date Performed: 07/20/2017 Time Performed: 13:09:01 PTAGE: 82 years EKG: Sinus rhythm WITH OCCASIONAL SUPRAVENTRICULAR PREMATURE COMPLEXES POSSIBLE LEFT ATRIAL ENLARGEMENT MARKED LEFT AX IS DEVIATION PATTERN CONSISTENT WITH PULMONARY DISEASE INCOMPLETE RIGHT BUNDLE BRANCH BLOCK PROBABLE SEPTAL MYOCARDIAL INFARCTION ABNORMAL EKG Compared to prior tracing no significant change PREVIOUS TRACING : 07/19/2017 23.38 DOCTOR: Davion Horne Interpretating Date/Time 07/21/2017 12:05:29
--- NOTE | 2017-07-21 12:05 | EKG ---
Date Performed: 07/20/2017 Time Performed: 19:05:16 PTAGE: 82 years EKG: Sinus rhythm POSSIBLE LEFT ATRIAL ENLARGEMENT MARKED LEFT AXIS DEVIATION PATTERN CONSISTENT WITH PULMONARY DISEAS E INCOMPLETE RIGHT BUNDLE BRANCH BLOCK SEPTAL MYOCARDIAL INFARCTION ABNORMAL ECG Compared to prior tr acing no significant change PREVIOUS TRACING : 07/20/2017 13.09 DOCTOR: Davion Horne Interpretating Date/Time 07/21/2017 12:05:13
[2017-07-21 14:16] LABS: BICARBONATE 20.8 MEQ/L (21.0-32.0); POTASSIUM 4.4 MEQ/L (3.5-5.1)
--- NOTE | 2017-07-21 14:23 | RADRPT ---
EXAM DATE/TIME: 07/21/2017 10:50 [facility] COMPARISON: No previous studies available for comparison. INDICATIONS : Nausea and dyspnea upon exertion. Angina. DOSE: 25.8 mCi Tc99m Myoview at stress. 8.8 mCi Tc99m Myoview at rest. 0.4 mg Lexiscan STRESS SYMPTOMS: Headache. EJECTION FRACTION: 41% MEDICAL HISTORY : Myocardial infarction. Chronic obstructive pulmonary disease. Hypercholesterolemia. Hypertension. SURGICAL HISTORY : Coronary artery stent. ENCOUNTER: Initial ACUITY: 1 day PAIN SCALE: 0/10 LOCATION: chest TECHNIQUE: The patient underwent pharmacologic stress with infusion of prescribed dose. Continuous ECG tracing was monitored during stress. Gated SPECT imaging was performed after stress and conventional SPECT i maging was performed at rest. The examination was performed on a SPECT/CT scanner, both attenuation and non-corrected datasets were reviewed. FINDINGS: DISTRIBUTION: The maximum perfused segment at stress is in the posterobasal wall. PERFUSION STUDY: There is severely diminished relative perfusion involving the low lateral and inferolateral wall and cardiac apex. Mildly diminished relative perfusion is present involving the low anterior wall. There are areas of at least moderate redistribution. GATED STUDY: Global mild hypokinesis with moderate apical hypokinesis. CONCLUSION: Moderate size severe lateral/inferolateral and apical perfusion abnormality with moderate redistribut ion. RISK CATEGORY: High (>3% Annual Mortality Rate) Daniele Omalley MD on July 21, 2017 at 14:04 Board Certified Radiologist. This report was verified electronically.
[2017-07-21] MEDS ORDERED: ASPIRIN 325 MG TAB PO ONE (15:30)
[2017-07-21 16:14] LABS: HDL CHOLESTEROL 40.8 MG/DL (40.0-60.0)
--- NOTE | 2017-07-21 17:26 | MB ---
cc: SUMI HUYNH DATE OF CONSULTATION: 07/21/2017 INDICATION Abnormal stress test. HISTORY OF PRESENT ILLNESS A 82-year-old gentleman with history of COPD, coronary disease, hypertension. He initially presented to the emergency department with shortness of breath and chest pain. States that he was worried he was "having a heart attack." Currently he is slightly confused. It is thought to be maybe secondary to the steroids administered for suspected COPD exacerbation but he is currently denying any active chest pain. He had a stress test that was markedly abnormal and I was consulted for further recommendations. His last cardiac catheterization with back in 2012 at which time he presented with ST-elevation RI cardiogenic shock. Ventricular fibrillation he has coded seven times. He had successful percutaneous intervention bare metal stent to the ostial left anterior descending coronary artery and a congestive cardiomyopathy with an ejection fraction 25% that was performed by Dr. You. There is an echocardiogram from July 20 which shows ejection fraction still 25-30%. No significant valvular heart disease. PAST MEDICAL HISTORY: 1. Chronic obstructive pulmonary disease. 2. Coronary artery disease, with ST-elevation, myocardial infarction and percutaneous intervention to the left anterior descending coronary artery. 3. Ventricular fibrillation 4. Cardiac arrest 5. Hypertension. ALLERGIES NO KNOWN DRUG ALLERGIES. FAMILY HISTORY Denies any family history of early coronary sudden , cardiac . SOCIAL HISTORY Smoked for many years but he quit. He denies any illicit drug, alcohol use. REVIEW OF SYSTEMS A 12-point review of some was performed, negative unless otherwise noted is present illness. PHYSICAL EXAMINATION VITAL SIGNS: Temperature 98, pulse 92, blood pressure 122/59 mmHg. IN GENERAL: He is alert and oriented x 3 in no acute distress. HEAD, EYES, EARS, NOSE, AND THROAT: Exam shows pupils reactive to light accommodation. Extraocular for attack elevation in venous distension or thyromegaly or lymphadenopathy. NECK: No carotid bruits. LUNGS: The lungs are clear to auscultation bilaterally. CARDIOVASCULAR SYSTEM: He has regular rate and rhythm with a 1/6 systolic murmur. ABDOMEN: His abdominal examination is nontender, nondistended, three while sounds. No hepatosplenomegaly. EXTREMITIES: The extremities showed No clubbing, cyanosis or edema. Good peripheral pulses. Cranial nerves intact. Motor sensory grossly intact. LABORATORY DATA WBC 14.6, hemoglobin 15.2, platelet count 305, INR is one. Sodium 138, potassium 4.4, BUN is 42, creatinine is 1.86 which is actually up from 1.54 on July 20. ASSESSMENT 1. Chest pain. 2. History of cardiomyopathy with severely reduced ejection fraction. 3. Chronic systolic and diastolic congestive heart failure. 4. Hypertension. 5. Hyperlipidemia 6. History of ventricular fibrillation arrest. 7. Abnormal stress test. PLAN The patient's pleasantly slightly confused right now probably due to the intravenous steroids, so it is hard to get a real accurate history. Apparently yesterday he had chest pain symptoms presented with chest pain, now a stress test was markedly abnormal high risk with moderate size severe lateral inferolateral and apical perfusion defect with moderate redistribution. His echocardiogram shows ejection fraction still severely reduced. At this point we will allow him to regain his mental status back to baseline then he will need a cardiac catheterization. Additionally with a severely reduced ejection fraction which is about the same as it was many years ago. He would technically qualify for defibrillator. After the cardiac cath we will probably ask electrophysiology for their thoughts. He is on good medical regimen and with aspirin, statin, beta-jonathan isosorbide. We will gently hydrate him given his creatinine is elevated. MD ASHANTI Barrow/candis /4:53 PM /5:06 PM
[2017-07-21] MEDS: ATORVASTATIN 10 MG TAB PO SCH (20:34)
[2017-07-22] VITALS (14 sets, daily range): BP systolic 129–154; BP diastolic 64–79; PULSE 80–103; RESP 16–18; TEMP 97.6–98.1; O2SAT 95–99
[2017-07-22] MEDS: METFORMIN HOLD POST IV CONTRAST SCH
[2017-07-22] MEDS: RESP: ALBUTEROL 2.5 MG/IPRATROPIUM 0.5 MG NEB (SCH) INH ×3 (07:40→20:28)
[2017-07-22] MEDS: INSULIN ASPART SUPPLEMENTAL SCALE SQ SCH ×4 (08:00→21:00)
--- NOTE | 2017-07-22 08:26 | HHI.PR ---
Subjective Remarks Follow up for chest pain, SOB, encephalopathy. The patient appears less confused today. He is oriented to self, [facility], President [place], however states the date is 2003 or "something like that". He denies any chest pain or shortness of breath overnight. Denies any cough or wheezing. Denies any other medical complaints. Explained that he may be going for heart catheterization today or tomorrow, he states "that's good". Objective Vitals Vital Signs Date Time Temp Pulse Resp B/P (MAP) Pulse Ox O2 Delivery O2 Flow Rate FiO2 07/22/17 08:05 97.6 90 16 154/79 (104) 95 07/22/17 00:21 98.0 103 18 140/76 (97) 95 07/21/17 20:16 97.4 125 20 132/78 (96) 96 07/21/17 20:00 97 07/21/17 16:25 98.0 92 16 122/59 (80) 95 07/21/17 13:11 97.6 92 16 124/64 (84) 96 I/O 07/21/17 07/21/17 07/21/17 07/22/17 07/22/17 07/22/17 07:00 15:00 23:00 07:00 15:00 23:00 Intake Total 1000 ml Balance 1000 ml Intake IV Total 1000 ml Result Diagram: 07/21/17 0600 07/21/17 1256 Imaging Last Impressions Myocardial Perfusion Scan Nuc Med 07/21/17 0000 Signed Impressions: Service Date/Time: Friday, July 21, 2017 10:50 - CONCLUSION: Moderate size severe lateral/inferolateral and apical perfusion abnormality with moderate redistribution. RISK CATEGORY: High (>3%% Annual Mortality Rate) Daniele Omalley MD CT Angiography 07/20/17 0147 Signed Impressions: Service Date/Time: Thursday, July 20, 2017 02:18 - CONCLUSION: 1. 8mm nodule superior segment left lower lobe with some spiculation. Finding new since 2014. Primary consideration is small bronchogenic carcinoma. This could be worked up as an outpatient initially with PET/CT. Percutaneous biopsy cardi difficult due to small size and location under left posterior rib. 2. Negative for pulmonary embolus. Ulisses Robledo MD Chest X-Ray 07/19/17 2342 Signed Impressions: Service Date/Time: Wednesday, July 19, 2017 23:58 - CONCLUSION: 1. No acute findings. Ulisses Robledo MD Objective Remarks GENERAL: Well-nourished, well-developed elderly male patient in [facility]. SKIN: Warm and dry. No rash. HEENT: Normocephalic. Atraumatic.Pupils equal and round. Mucous membranes pink and moist. CARDIOVASCULAR: Regular rate and rhythm. S1, S2 noted. No murmur appreciated. RESPIRATORY: No accessory muscle use. Some mild upper airway congestion noted, otherwise clear to auscultation. Breath sounds equal bilaterally. GASTROINTESTINAL: Abdomen soft, non-tender, nondistended. Normoactive bowel sounds x4. MUSCULOSKELETAL: No obvious deformities. Extremities without clubbing, cyanosis , or edema. NEUROLOGICAL: Awake and alert. No obvious cranial nerve deficits. Motor grossly within normal limits. Normal speech. PSYCHIATRIC: Appropriate mood and affect; insight and judgment normal. Medications and IVs Current Medications Medications (Trade) Dose Ordered Sig/Maury Route Start Time Stop Time Status Last Admin (Norvasc) 5 mg DAILY PO 07/20/17 09:00 07/21/17 09:06 (Lipitor) 10 mg HS PO 07/20/17 21:00 07/21/17 20:34 (Plavix) 75 mg DAILY PO 07/20/17 09:00 07/21/17 09:07 (NS Flush) 2 ml BID IV FLUSH 07/20/17 09:00 07/21/17 09:08 (NS Flush) 2 ml UNSCH PRN IV FLUSH 07/20/17 02:00 (Albuterol Neb) 2.5 mg Q2HR NEB PRN INH 07/20/17 02:00 (Heparin Inj) 5,000 units Q12H SQ 07/20/17 09:00 07/21/17 20:34 (D50w (Vial) Inj) 50 ml UNSCH PRN IV PUSH 07/20/17 06:00 (Glucagon Inj) 1 mg UNSCH PRN OTHER 07/20/17 06:00 (NovoLOG SUPPLEMENTAL SCALE) 1 ACHS SLIDING SCALE SQ 07/20/17 08:00 07/21/17 18:26 (Imdur) 60 mg DAILY PO 07/20/17 09:00 07/21/17 09:08 (Duoneb Neb) 1 ampule Q6HR WHILE AWAKE NEB INH 07/20/17 14:00 07/22/17 07:40 (Lopressor) 12.5 mg BID PO 07/20/17 21:00 07/21/17 20:34 (Pill Splitter) 1 ea UNSCH PRN OTHER 07/20/17 18:15 Miscellaneous Information HOLD METFORMIN FOR... Q24H .XX 07/20/17 02:30 07/23/17 02:29 (Aspirin) 325 mg DAILY PO 07/22/17 09:00 A/P Problem List: (1) Shortness of breath ICD Code: R06.02 - Shortness of breath Status: Acute (2) COPD (chronic obstructive pulmonary disease) ICD Code: J44.9 - Chronic obstructive pulmonary disease, unspecified Status: Chronic (3) Ischemic cardiomyopathy ICD Code: I25.5 - Ischemic cardiomyopathy Status: Chronic Assessment and Plan 82-year-old male with a past medical history of CAD, ischemic cardiomyopathy, COPD who presented for shortness of breath and diaphoresis Chest Pain/Shortness of breath/Diaphoresis: patient presented concerned he was having a heart attack, with history of ischemic cardiomyopathy, concern for ACS. Does not appear to be in COPD or CHF exacerbation clinically. Reviewed: EKG with sinus tachycardia, no specific ischemic changes. Initial troponin 0.02. BNP 162. CXR clear. Pulmonary angiogram with abnormal lung nodule, no PE. -ACS ruled out with negative serial cardiac enzymes and EKG without acute ischemic changes. -Continue Plavix, statin, Imdur, aspirin, BB -Lipid panel with elevated LDL 111, will increase Lipitor to 40mg hs -Nuclear stress test showed moderate size severe lateral/inferolateral and apical perfusion abnormality with moderate redistribution. -Consulted cardiology, plan for heart catheterization today or tomorrow, await BMP Will consult cardiology. History of ischemic cardiomyopathy: Previous catheterization from 2012 showed EF 25%. -Echocardiogram showed EF 25-30%. -Needs to establish with cardiology as outpatient. -lisinopril and lasix on hold for HOMERO -Started metoprolol Lung mass:This was documented last year and the patient was told to follow-up outpatient. Apparently he did not. Patient was informed again of the findings. -Strongly encourage outpatient follow-up Diabetes mellitus: -Held home metformin -Monitor Accu-Cheks and cover with SSI needed CKD stage III: Creatinine 1.54, previously 1.52 on 06/05/16. -Monitor, slightly worse, Cr increased to 1.8, given IVF and repeat labs today pending COPD: chronic, possibly mild exacerbation upon arrival, now resolved -Given prednisone 40 mg daily 3 for possible mild COPD exacerbation (d/c now secondary to confusion) -Scheduled and as needed nebs Hyperkalemia: K 5.7, unclear etiology -give IVF, repeat labs with K 4.4, resolved Acute Encephalopathy: patient more altered on 07/21, suspect secondary to steroids vs uremia. -discontinue steroids as patient's lungs are clear -give IVF -check repeat BMP, ammonia, TSH -monitor neuro checks DVT prophylaxis: Heparin Discharge Planning Discharge pending further clinical improvement and cardiac catheterization. Katelyn Lopez PA-C Jul 22, 2017 8:26 am
--- NOTE | 2017-07-22 08:56 | PD.CARD.PN ---
Subjective Subjective Remarks mental status improved aware of , location, president,ect no CP Objective Medications Active Medications Aspirin (Aspirin) 325 mg DAILY PO; Start 07/22/17 at 09:00 Aspirin (Aspirin) 325 mg ONCE ONCE PO Last administered on 07/21/17 16:24; Admin Dose 325 MG; Start 07/21/17 at 15:30; Stop 07/21/17 at 15:31; Status DC Atorvastatin Calcium (Lipitor) 40 mg HS PO; Start 07/22/17 at 21:00 Regadenoson (Lexiscan Inj) 0.4 mg STK-MED ONCE .ROUTE Last administered on 11:31; Admin Dose 0.4 MG; Start 07/21/17 at 11:31; Stop 07/21/17 at 11:32; Status DC Sodium Chloride 1,000 ml @ 100 mls/hr Q10H IV Last administered on 07/21/17 18 :26; Admin Dose 100 MLS/HR; Start 07/21/17 at 17:00; Stop 07/21/17 at 21:59; Status DC Sodium Chloride 1,000 ml @ 125 mls/hr Q8H IV Last administered on 07/21/17 13: 11; Admin Dose 125 MLS/HR; Start 07/21/17 at 09:30; Stop 07/21/17 at 17:16; Status DC Vital Signs / I&O Vital Signs Date Time Temp Pulse Resp B/P (MAP) Pulse Ox O2 Delivery O2 Flow Rate FiO2 07/22/17 08:05 97.6 90 16 154/79 (104) 95 07/22/17 00:21 98.0 103 18 140/76 (97) 95 07/21/17 20:16 97.4 125 20 132/78 (96) 96 07/21/17 20:00 97 07/21/17 16:25 98.0 92 16 122/59 (80) 95 07/21/17 13:11 97.6 92 16 124/64 (84) 96 I/O 07/21/17 07/21/17 07/21/17 07/22/17 07/22/17 07/22/17 07:00 15:00 23:00 07:00 15:00 23:00 Intake Total 1000 ml Balance 1000 ml Intake IV Total 1000 ml Physical Exam GENERAL: SKIN: Warm and dry. HEAD: Normocephalic. EYES: No scleral icterus. No injection or drainage. NECK: Supple, trachea midline. No JVD or lymphadenopathy. CARDIOVASCULAR: Regular rate and rhythm without murmurs, gallops, or rubs. RESPIRATORY: Breath sounds equal bilaterally. No accessory muscle use. GASTROINTESTINAL: Abdomen soft, non-tender, nondistended. MUSCULOSKELETAL: No cyanosis, or edema. BACK: Nontender without obvious deformity. No CVA tenderness. Laboratory Laboratory Tests Test 07/21/17 12:56 07/21/17 15:07 07/21/17 17:50 07/22/17 07:34 Blood Urea Nitrogen 42 MG/DL Creatinine 1.86 MG/DL Random Glucose 206 MG/DL Calcium Level 9.2 MG/DL Sodium Level 138 MEQ/L Potassium Level 4.4 MEQ/L Chloride Level 106 MEQ/L Carbon Dioxide Level 20.8 MEQ/L Anion Gap 11 MEQ/L Estimat Glomerular Filtration Rate 35 ML/MIN Triglycerides Level 117 MG/DL Cholesterol Level 175 MG/DL LDL Cholesterol 111 MG/DL HDL Cholesterol 40.8 MG/DL Cholesterol/HDL Ratio 4.28 RATIO Thyroid Stimulating Hormone 3rd Gen 0.609 uIU/ML Ammonia 14 MCMOL/L Urine Random Creatinine 175.8 MG/DL Urine Random Sodium 29 MEQ/L Imaging Last Impressions Myocardial Perfusion Scan Nuc Med 07/21/17 0000 Signed Impressions: Service Date/Time: Friday, July 21, 2017 10:50 - CONCLUSION: Moderate size severe lateral/inferolateral and apical perfusion abnormality with moderate redistribution. RISK CATEGORY: High (>3%% Annual Mortality Rate) Daniele Omalley MD CT Angiography 07/20/17 0147 Signed Impressions: Service Date/Time: Thursday, July 20, 2017 02:18 - CONCLUSION: 1. 8mm nodule superior segment left lower lobe with some spiculation. Finding new since 2014. Primary consideration is small bronchogenic carcinoma. This could be worked up as an outpatient initially with PET/CT. Percutaneous biopsy cardi difficult due to small size and location under left posterior rib. 2. Negative for pulmonary embolus. Ulisses Robledo MD Chest X-Ray 07/19/17 7336 Signed Impressions: Service Date/Time: Wednesday, July 19, 2017 23:58 - CONCLUSION: 1. No acute findings. Ulisses Robledo MD Assessment and Plan Assessment and Plan unstable angina - CP symptoms resolved. lexiscan abnormal. plan for [facility] today await Cr cont to monitor mental status NPO p light breakfast Emeka Judd MD Jul 22, 2017 08:56
[2017-07-22] MEDS: HEPARIN SODIUM - SQ 10,000 UNITS/ML VIAL SQ SCH (09:00)
[2017-07-22] MEDS: SODIUM CHLORIDE 0.9% FLUSH 10 ML FLUSH IV FLUSH SCH ×2 (09:00→21:47)
[2017-07-22] MEDS: METOPROLOL TARTRATE 25 MG TAB PO SCH ×2 (09:30→21:45)
[2017-07-22 09:31] LABS: BICARBONATE 24.1 MEQ/L (21.0-32.0); POTASSIUM 4.2 MEQ/L (3.5-5.1)
[2017-07-22] MEDS: ISOSORBIDE MONONITRATE 60 MG TAB PO SCH (09:32)
[2017-07-22] MEDS: amLODIPine BESYLATE 5 MG TAB PO SCH (09:32)
[2017-07-22] MEDS: ASPIRIN 325 MG TAB PO SCH (09:33)
[2017-07-22] MEDS: CLOPIDOGREL 75 MG TAB PO SCH (09:33)
[2017-07-22 09:49] LABS: POTASSIUM 4.4 MEQ/L (3.5-5.1)
[2017-07-22 09:59] LABS: BICARBONATE 21.6 MEQ/L (21.0-32.0)
[2017-07-22] MEDS ORDERED: HEPARIN-NS/PF INJ 1,000 ML ONE (10:55)
[2017-07-22] MEDS ORDERED: MIDAZOLAM HCL 2 MG/2 ML VIAL ONE (10:56)
[2017-07-22] MEDS ORDERED: HEPARIN SODIUM - IV 10,000 UNITS/10 ML VIAL ONE (10:56)
[2017-07-22] MEDS ORDERED: NITROGLYCERIN INJ 5 ML ONE (10:56)
--- NOTE | 2017-07-22 11:58 | CATHPROC ---
[facility] HIS Report Study Information Study Number Admission Scheduled Start Study Start [id number] Jul 20 2017 1:52AM 07/22/2017 Jul 22 2017 10:46AM [place] Service Cardiac Catheterization Admit Source Facility Department Emergency department [facility] - [facility] [employer] Physician and Clinical Staff Initial Emeka Dubon [employer] Furn[employer] Charger Migdalia Espinoza,RN Recorder Davy Santiago,RT(R) Scrub Nimesh JohnsonRT(R) Procedures Performed Procedure Location (Site) Vessel Name Coronary Angiograms LCA Left Coronary Coronary Angiograms RCA Right Coronary L Heart Cath Equipment Time Color Card Maker Description Size Mfg Part Number Used/Scraped TRANSDUCER, TRUWAVE [id number] 10:59 BROWN ANTONIO * Used W/STOCKCOCK *[id number] *[id number] *[id number] 10:59 [employer] INDUSTRIES PACK, CCL CUSTOM * Used *[id number] 10:59 L[employer]atone SUPPORT, ARTERIAL ADULT 96336 *[id number] Used [id number] 10:59 [employer] PACER PEN, SKIN DUAL W/ RULER * Used *[id number] BAND, RADIAL COMPRESSION TR [id number] 11:56 [employer] 29CM Used LARGE 29 *[id number] SHEATH, FR6 RADIAL PRELUDE 10:59 [employer] FR 6 [id number] Used EASE 11CM [id number] 10:59 [employer] WIRE, EXCHANGE 260CM 3MMJ 260CM Used *[id number] 10:59 [employer] OMNIPAQUE, 350 MG, 150ML 150ML [id number] Used [id number] 10:59 RICHARD [facility] BLANKET,WARM AIR CCL * Used *[id number] History: Current Medications Medication Dosage/Unit Route Frequency Last Date/Time Taken ASA PLAVIX LIPITOR Glucophage NORVASC Imdur PREDNISONE History: Allergies Allergy Reaction No Known Allergies History: Risk Factors Family History of Hypertension Dyslipidemia Previous TX Previous Heart Failure Premature CAD Yes Yes No No No Prior Valve Prior PCI Prior CABG Surgery No No No Cerebrovascular Peripheral Artery Chronic Lung On Dialysis Diabetes Diabetes Therapy Disease Disease Disease No No No Yes Yes Oral History: Symptoms/Diagnosis Selection Items SOB History: Stress Tests Stress or Imaging Studies Performed Yes Standard Exercise Stress Test No Stress Echo No Stress Test SPECT Stress Test SPECT Result Yes Positive Stress Test CMR No Cardiac CTA Coronary Calcium Score No No History: Other Disease Selection Items COPD HTN History: Other Current Smoker Method Quit No Cigarettes 3 Years Ago Labs Hgb (g/dl) Hct (%) RBC (MIL/MM3) WBC (l/cumm) Platelets (thousands) 11.60-17.00 35.00-51.00 4.00-5.90 4.00-11.00 150.00-450.00 15.9 48.5 5.1 12.5 340 Glucose (mg/dl) BUN (mg/dl) Creatinine (mg/dl) BUN:Creatinine (1:x) 74.00-106.00 7.00-18.00 0.50-1.30 10.00-20.00 145 23 1.5 15.3 Na (meq/l) K (meq/l) Cl (meq/l) CO2 (mmol/L) Ca (mg/dl) 136.00-145.00 3.50-5.10 98.00-107.00 21.00-32.00 8.50-10.10 138 4 106 23.6 8.9 PT (sec) PTT (sec) INR (PTT:PT) 9.80-11.60 24.30-30.10 0.90-1.10 11.4 29.4 1 Troponin I (ng/ml) CPK (u/l) CPK-MB (ng/ML) 0.02-0.05 26.00-308.00 0.50-3.60 0.02 41 Not Drawn Medication Medication Total Dose (Bolus/Oral) Medication Total Dosage/Unit 1% XYLOCAINE 5 mL FENTANYL 25 mcg HEPARIN 3000 units NTG (IC) 200 mcg Medications (Bolus/Oral) Medication Time Given Dosage/Unit Administered By Reason FENTANYL 07/22/2017 11:22:58 AM 25 mcg Migdalia Espinoza 25 mcg FENTANYL given in lab by Migdalia Espinoza, RN via Peripheral IV. Ordered by Emeka Judd. 1% XYLOCAINE 07/22/2017 11:26:00 AM 5 mL Emeka Judd 5 mL 1% XYLOCAINE given in lab by Emeka Judd via Subcutaneous. Ordered by Emeka Judd. NTG (IC) 07/22/2017 11:28:30 AM 200 mcg Emeka Judd 200 mcg NTG (IC) given in lab by Emeka Judd in Right Radial via Intra-arterial. Ordered by Emeka Judd. HEPARIN 07/22/2017 11:28:47 AM 3000 units Migdalia Espinoza 3000 units HEPARIN given in lab by Migdalia Espinoza, FELIZ in Left Forearm via Peripheral IV. Ordered by Emeka Judd. Medication (Drip) Medication Time Given Dosage/Unit Concentration/Unit Diluent (ml) Solution IV Solutions 07/22/2017 10:57:18 AM 0 mL (IV) 500 NaCl .9 IV Solutions given in lab by Migdalia Espinoza RN in Left Forearm via Peripheral IV. Pump/Drip Flow = 20 ml/hr using NaCl .9. Initial Case Assessment Cardiovascular HR Rhythm NIBP Chest Pain 89 Sinus 142/74 0 Edema Present Skin color Skin None Normal Warm Dry Circulatory - Right Pulses Dorsalis Pedis Posterior Tibial Femoral Radial 1 1 1 2 Scale (0,1,2,3,4,d) Circulatory - Left Pulses Dorsalis Pedis Posterior Tibial Femoral Radial 1 1 1 2 Scale (0,1,2,3,4,d) Neurological State Oriented to time-place- Alert Moves all extremities person Respiration - General Respiration Rate SpO2 (%) O2 (lpm) (B/min) 20 96 0 Final Case Assessment Cardiovascular HR Rhythm NIBP Chest Pain 74 sr 102/49 0 Edema Present Skin color Skin None Normal Warm Dry Neurological State Oriented to time-place- Alert Moves all extremities person Respiration - General Respiration Rate SpO2 (%) (B/min) 18 97 Chronological Log Time Study Chronological Log 10:47:12 Patient arrived via Bed. 10:47:14 Patient Name, D.O.B, / Armband Verified By R.N. 10:47:14 Consent signed by the physician and the patient and verified by the [employer] staff. 10:47:15 Pre-op and post- op instructions given; patient acknowledges understanding of instructions. 10:47:18 Presedation assessment performed by [employer] RN. 10:47:20 Verbal Stimulation=2 Physical Stimulation=2 Airway=2 Respiration=2 TOTAL=8. (0=absent, 1=li mited, 2=present) 10:51:58 Allens test performed on the right radial and ulnar artery. 10:57:12 Patient has been NPO for Less than 6Hrs. 10:57:13 Skin Breakdown- generalized brusing. 10:57:15 Patient Warmer Placed on the Table. 10:57:16 Quirino Prominences Protected 10:57:17 A # 20 IV was noted in the Forearm (left). Grade = 0 IV Solutions given in lab by Migdalia Espinoza RN in Left Forearm via Peripheral IV. Pump/Drip F low = 20 ml/hr using 10:57:18 NaCl .9. Vitals capture started with the following parameters, Patient=Adult, Interval=5 min, Initial Pr hubykt=616 mmHg, 10:57:29 Deflation Rate=5 mmHg 10:58:10 HR=89 bpm, BBID=892/74 mmhg, SpO2=96.0 %, Resp=20 B/min, Pain=0, Kuldip=10, Tang=2 10:59:26 Right Radial and groin(s) prepped with 2% chlorhexidine, and with a 3 min. waiting time. 11:03:11 HR=92 bpm, FEDG=756/79 mmhg, SpO2=95.0 %, Resp=25 B/min, Pain=0, Kuldip=10, Tang=2 11:03:32 MD paged 11:08:12 HR=89 bpm, PQRL=168/74 mmhg, SpO2=94.0 %, Resp=18 B/min, Pain=0, Kuldip=10, Tang=2 11:11:28 Pressure channel 1 zeroed. 11:13:11 HR=90 bpm, CMHC=936/74 mmhg, SpO2=95.0 %, Resp=20 B/min, Pain=0, Kuldip=10, Tang=2 Assessment: Initial Case, HR=89 BPM, Rhythm=Sinus, ROIJ=850/74 mmhg, Chest Pain=0, Edema=None, Color=Normal, Skin = Warm, Dry Right Pulses: Gene Ped=1, Post Tib=1, Femoral=1, Radial=2 11:15:02 Left Pulses: Gene Ped=1, Post Tib=1, Femoral=1, Radial=2 Neurological: State=Alert, Ox3, HAMMONDS Respiration: Resp=20 B/min, SpO2=96 %, O2=0 lpm 11:15:47 Reference ECG taken 11:18:12 HR=87 bpm, HMMG=183/69 mmhg, SpO2=94.0 %, Resp=17 B/min, Pain=0, Kuldip=10, Tang=2 11:21:52 arrived. 11:22:58 25 mcg FENTANYL given in lab by Migdalia Espinoza, RN via Peripheral IV. Ordered by St ariel Judd. 11:23:09 HR=87 bpm, AXBS=289/78 mmhg, SpO2=94.0 %, Resp=27 B/min, Pain=0, Kuldip=10, Tang=2 Time Out. Correct patient, correct procedure,correct physician, power injector not loaded with contrast with surgical 11:25:25 team present. Time Out Concurred by , individual staff in procedure 11:25:43 Case Start 11:26:00 5 mL 1% XYLOCAINE given in lab by Emeka Judd via Subcutaneous. Ordered by Meryl Judd 11:28:10 HR=82 bpm, PGUJ=253/64 mmhg, SpO2=93.0 %, Resp=22 B/min, Pain=0, Kuldip=10, Tang=2 11:28:30 200 mcg NTG (IC) given in lab by Emeka Judd in Right Radial via Intra-arterial. Ordered by Emeka Judd. 11:28:47 3000 units HEPARIN given in lab by Migdalia Espinoza, RN in Left Forearm via Peripheral IV. O rdered by Emeka Judd. 11:28:53 Access site was Radial Artery. A SHEATH, FR6 RADIAL PRELUDE EASE 11CM FR 6 was advanced into the Fem Art (right) using the Per cutaneous 11:29:01 technique. A JR 5.0 INFINITI CATHETER FR 6 was advanced over a wire. OMNIPAQUE, 350 MG, 150ML 150ML was us ed for 11:30:31 injections. Recorded Pressure: LV, HR=92, Condition=Condition 1 11:31:52 (Left Ventricle) LV 60/6/8 Recorded Pressure: LV, Ao, HR=69, Condition=Condition 1 11:32:04 (Left Ventricle) LV 81/3/12, (Aorta) Ao 75/42/55 Recorded Pressure: Ao, HR=65, Condition=Condition 1 11:32:44 (Aorta) Ao 67/37/49 11:33:09 HR=71 bpm, NIBP=82/47 mmhg, SpO2=95.0 %, Resp=18 B/min, Pain=0, Kuldip=10, Tang=2 11:33:28 The RCA was injected and visualized at various angles. OMNIPAQUE, 350 MG, 150ML 150ML use d. After removing the current catheter a JL 3.5 INFINITI CATHETER FR 6 was advanced over a WIRE, EXCHANGE 260CM 11:34:06 3MMJ 260CM. 11:35:49 The LCA was injected and visualized at various angles. OMNIPAQUE, 350 MG, 150ML 150ML use d. 11:38:04 HR=72 bpm, NIBP=95/47 mmhg, SpO2=92.0 %, Resp=12 B/min, Pain=0, Kuldip=10, Tang=2 11:42:17 Catheter was removed 11:43:07 HR=68 bpm, OCIF=659/49 mmhg, SpO2=95 %, Resp=19 B/min, Pain=0, Kuldip=10, Tang=2 11:45:04 Case End 11:45:11 Sterile dressing applied to site 11:45:12 No case complications noted. 11:45:13 Cine recording checked. 11:45:14 Bedside Report will be given. 11:45:35 Contrast Scanned 11:45:40 A Left Heart Cath was performed. Radial Compression Device Used. 14 mLs of air placed in BAND, RADIAL COMPRESSION TR LARGE 29 2 9CM. Affected 11:45:52 hand 95 % O2 saturation. Assessment: Final Case, HR=74 BPM, Rhythm=sr, NPOY=929/49 mmhg, Chest Pain=0, Edema=None, [place] r=Normal, Skin = Warm, Dry 11:49:25 Neurological: State=Alert, Ox3, HAMMONDS Respiration: Resp=18 B/min, SpO2=97 % 11:50:35 [facility] to [facility] End Study - Contrast Media Used In Study Contrast Total Opened (mL) Total Used (mL) Total Wasted (mL) Omnipaque 14 14 0 End Study - Maximum Contrast Load Max Contrast Load (mL) 273.3 End Study - Radiation Exposure Fluoro Time (minutes) 2.0 End Study - Patient Disposition Complications Transferred To Telemetry Bed
[2017-07-22] MEDS ORDERED: BACITRACIN OINT 0.9 GM PKT TOP ONE (12:00)
[2017-07-22] MEDS ORDERED: MISC INFORMATION XX ONE (12:00)
--- NOTE | 2017-07-22 12:20 | MA ---
cc: SUMI HUYNH DATE 07/22/2017 TOTAL AMOUNT OF CONTRAST ADMINISTERED 14 cc PROCEDURE PERFORMED 1. Fluoroscopy with interpretation 2. Left heart catheterization 3. Coronary angiography METHOD The risks, benefits and alternatives discussed with the patient, the patient understood and consented to the procedure. PROCEDURAL STATEMENT The patient brought into the catheterization lab, placed on the catheterization table. The right wrist was prepped and draped in a sterile fashion. The right wrist was anesthetized 2% lidocaine. The right radial artery was anesthetized and cannulated with a 6-Romanian 11 cm sheath. 200 mcg of intra-arterial nitroglycerin was administered, 300 units of intravenous heparin was administered. LEFT HEART CATHETERIZATION Intraventricular hemodynamics were measured at 80/14 mmHg. CORONARY ANGIOGRAPHY 1. The left main coronary has minor luminal irregularities distally. The estimated severity of stenosis 20%. 2. Left anterior descending coronary has a proximal stent present. The ostium of the LAD has about 50% stenosis. There is a high diagonal branch with a 70% proximal stenosis. The [id number]-zk-fytift left anterior descending coronary stenosis right at a point of steep angulation that appears to be 80% stenosis best actually reviewed in the left anterior oblique view. There is SWAPNA II flow down distally in the LAD itself. 3. The left circumflex gives rise to an obtuse marginal branch and there is 80% stenosis throughout the entire proximal segment. 4. The right coronary is a dominant vessel giving rise to the posterior descending coronary. The right coronary artery has a 95% proximal calcific eccentric stenosis. CONCLUSIONS 1. Severe [place] three-vessel coronary artery disease. 2. Normal left-sided filling pressures. PLAN Given the multivessel involvement in addition to his known cardiomyopathy, he would probably be best served with a surgical revascularization. We will ask the cardiothoracic surgeon to evaluate him and determine his candidacy for open heart surgery. We really minimize the amount contrast exposure so I do not anticipate any ill effects from a kidney perspective, but we will monitor creatinine closely. MD ASHANTI Barrow/[place] /12:01 PM /12:10 PM
--- NOTE | 2017-07-22 14:35 | PD.CAR.PN ---
CVT Progress Note Subjective/Hospital Course: sts data discussed with pt RISK SCORES About the STS Risk Calculator Procedure: CAB Only Risk of Mortality: 12.411% Morbidity or Mortality: 48.187% Long Length of Stay: 32.094% Short Length of Stay: 9.651% Permanent Stroke: 3.005% Prolonged Ventilation: 36.147% DSW Infection: 2.324% Renal Failure: 25.575% Reoperation: 15.314% Objective: Vital Signs Date Time Temp Pulse Resp B/P (MAP) Pulse Ox O2 Delivery O2 Flow Rate FiO2 07/22/17 12:20 97 Room Air 07/22/17 08:05 97.6 90 16 154/79 (104) 95 07/22/17 00:21 98.0 103 18 140/76 (97) 95 07/21/17 20:16 97.4 125 20 132/78 (96) 96 07/21/17 20:00 97 07/21/17 16:25 98.0 92 16 122/59 (80) 95 Labs: Laboratory Tests Test 07/22/17 07:34 07/22/17 08:50 Blood Urea Nitrogen 35 MG/DL (7-18) 35 MG/DL (7-18) Creatinine 1.38 MG/DL (0.60-1.30) 1.52 MG/DL (0.60-1.30) Random Glucose 131 MG/DL (74-106) 134 MG/DL (74-106) Calcium Level 8.5 MG/DL (8.5-10.1) 8.9 MG/DL (8.5-10.1) Sodium Level 141 MEQ/L (136-145) 142 MEQ/L (136-145) Potassium Level 4.4 MEQ/L (3.5-5.1) 4.2 MEQ/L (3.5-5.1) Chloride Level 109 MEQ/L (98-107) 110 MEQ/L (98-107) Carbon Dioxide Level 21.6 MEQ/L (21.0-32.0) 24.1 MEQ/L (21.0-32.0) Anion Gap 10 MEQ/L (5-15) 8 MEQ/L (5-15) Estimat Glomerular Filtration Rate 50 ML/MIN (>89) 44 ML/MIN (>89) Result Diagram: 07/21/17 0600 07/22/17 0850 Zoya Childs Jul 22, 2017 14:35
--- NOTE | 2017-07-22 15:17 | EKG ---
Date Performed: 07/21/2017 Time Performed: 15:13:35 PTAGE: 82 years EKG: Sinus rhythm MARKED LEFT AXIS DEVIATION LOW QRS VOLTAGE IN PRECORDIAL LEADS PATTERN CONSISTENT WITH PULMONARY DIS EASE INCOMPLETE RIGHT BUNDLE BRANCH BLOCK PROBABLE SEPTAL MYOCARDIAL INFARCTION ABNORMAL ECG PREVIOUS TRACING : 07/20/2017 19.05 Compared to prior tracing no significant change DOCTOR: Qamar Bethea Interpretating Date/Time 07/22/2017 15:16:43
[2017-07-22] MEDS ORDERED: IOHEXOL 350 MG/ML 50 ML BTL (for Cath Lab) OTHER ONE (15:52)
--- NOTE | 2017-07-22 16:18 | MB ---
cc: DAYNA GERARDO DATE OF CONSULTATION: 07/22/2017 1937 HISTORY OF PRESENT ILLNESS A 82-year-old male patient of Dr. Jase Lezama, who presented to the emergency room, a very poor historian, concern that he was having a heart attack, had been complaining of chest pain left-sided, non-radiating for the last 2-3 months, lasting maybe 5 minutes, relieved with rest. He was very concerned because he had a major heart attack back in 2012 where at that time he had a V-fib arrest, was in cardiogenic shock. He had ST-segment GA, respiratory failure where he was intubated. He was given CPR. His EF at that time was found to be about 25%. They did place a bare metal stent to the ostial LAD that was done by Dr. You. The patient apparently has recently in the past 4 months. Appears to not really being able to take very good care of himself. He seems somewhat disheveled. He underwent cardiac cath today by Dr. Judd after having a positive stress test which showed a moderate severe lateral, inferolateral and apical perfusion abnormality with moderate redistribution. Cardiac cath revealed 20% left main, proximal LAD 30%, the mid distal LAD 70%, the diagonal 50%, the circ 90%, the OM 20% and the RCA 90%. We were consulted to evaluate for coronary artery bypass grafting. Please note also that the patient had a workup back in May 2016 where he had a CT of the abdomen and pelvis and at that time they showed a 2 cm pleural-based mass of the right lung suspicious for malignancy. CT scan of the thorax was recommended which was not done. He then had CT angiography here on this admission which showed no mention of the right pleural lung base mass, however, it did show an 8 mm nodule superior segment of the left lower lobe with some spiculation, these were new findings since 2014, primary concern for small bronchogenic carcinoma, negative for pulmonary emboli. There had been a workup in the past for possible peripheral arterial disease by Dr. Bronson and the patient also had been seen by Dr. Orantes, Neurosurgeon at [facility] but has not undergone any kind of surgical intervention for his peripheral arterial disease. PAST MEDICAL HISTORY 1. Significant COPD. He used inhalers at home. 2. Coronary artery disease with prior GA. 3. Hypertension. 4. Prior respiratory failure requiring ventilatory support. 5. He has history of a bare metal stent to the LAD. 6. History of kidney stones. 7. Diabetes mellitus. 8. Peripheral arterial disease. ALLERGIES No known allergies. MEDICATIONS Home meds include: 1. Plavix 75 mg. 2. Lipitor. 3. Imdur. 4. Amlodipine. 5. Lisinopril. 6. Lasix. 7. Metformin. CURRENT MEDICATIONS 1. Statin. 2. Aspirin. 3. Last dose of Plavix was early this morning. REVIEW OF SYSTEMS GENERAL: No night sweats, fever, heat and cold tolerance. SKIN: No psoriasis, itching or hives. HEENT: No blurred vision, hearing loss. RESPIRATORY: Positive for cough, shortness of breath chronically. CARDIOVASCULAR: As above in the HPI. GASTROINTESTINAL: No diarrhea, vomiting. GENITOURINARY: No burning, frequency, urgency. DIRECT MARKETING INTERN: No history of TIA, CVA, seizure disorder. ENDOCRINOLOGY: Positive for diabetes. PHYSICAL EXAMINATION VITAL SIGNS: Blood pressure 150/70, heart rate 90, temperature max 97.6. GENERAL: The patient is awake, alert, somewhat of a poor historian. HEENT: Head is normocephalic. He has a full rizzo. He has no dentures or no existing teeth on his own. Gum line is pink, moist with no indication of any abscess. NECK: Supple. No JVD. HEART: Heart sounds S1-S2, regular rate and rhythm. No audible rubs or gallops. LUNGS: Diminished in the bases. Faint expiratory wheeze. ABDOMEN: Soft, nontender. No masses or organomegaly. EXTREMITIES: Reveal no edema. +1 distal pulses in his feet and fair capillary refill. LABORATORY FINDINGS Shows hemoglobin 15, hematocrit of 48, white cell count 14, platelet count of 305, sodium 142, potassium 4.2, BUN 35, creatinine 1.52. Triglycerides 117, cholesterol 175, LDL 111, HDL 40, TSH of 0.69, INR 1.0. Urinalysis unremarkable. Blood cultures negative x2 days. IMAGING STUDIES Radiological exams as above. IMPRESSION This is a 82-year-old male with multiple comorbidities including significant COPD. He had a prior PFT back in 2012, history of FEV-1 of 1.0, 36% predicted, longstanding history of tobacco abuse, smoked for 60 years, quit 4 months ago, one and a half pack per day, drinks beer approximately three beers once per week but he drank heavily in the past, now admitted with chest pain with prior GA, prior stenting to the LAD, currently on Plavix, last dose early this morning. Coronary films will be evaluated by Dr. Dayna Gerardo and evaluation for candidacy for bypass grafting. Will need to hold the Plavix for now, will need to be off for approximately 5 days and evaluation for surgery to be concluded after the patient has carotid ultrasound. Pulmonary function testing to evaluate his pulmonary status. He has also got the history of having a 2 cm right lung mass and also now a 8 mm nodule in the left lower lobe with some spiculation, concern for lung involvement which needs to be ruled out for any kind of cancer. History of prior GA with EF of 25%. Chronic kidney disease. Cardiomyopathy with ischemic cardiomyopathy, [place] Class 3 to 4. Overall the patient is increased risk for coronary bypass grafting, however, this will be evaluated further by Dr. Dayna Gerardo. In the meantime we will hold his Plavix to be further evaluated for possible surgery. Dictated by: REKHA Reddy MD GEORGINA Yancey/RASTA /2:14 PM /4:13 PM
--- NOTE | 2017-07-22 20:17 | RADRPT ---
EXAM DATE/TIME: 07/22/2017 18:43 [facility] COMPARISON: US VENOUS MAPPING,LOW EXT,BILAT, July 22, 2017, 18:53. US LEG BILATERAL VENOUS DOPPLER, March, 10:20. INDICATIONS : Pre op cardiac surgery. MEDICAL HISTORY : Myocardial infarction. Hypercholesterolemia. Chronic obstructive pulmonary disease. Anticoagulant the rapy. Coronary artery disease. Hypertension. Kidney stones. Diabetes. SURGICAL HISTORY : Coronary artery stent. ENCOUNTER: Subsequent ACUITY: 1 day PAIN SCORE: 0/10 LOCATION: Bilateral legs. TECHNIQUE: Venous ultrasound of the left and right leg was performed from the inguinal ligament to the proximal calf. Real-time, color Doppler and spectral tracing, compression and augmentation techniques were us ed. FINDINGS: RIGHT LEG: There is normal compressibility of the deep venous system from the inguinal region to the proximal ca lf. No echogenic clot is seen in the lumen of the common femoral, femoral, popliteal, and posterior tibial veins. There is a normal response of the venous system to proximal and distal augmentation an d respiration. Greater saphenous vein is patent. LEFT LEG: There is normal compressibility of the deep venous system from the inguinal region to the proximal ca lf. No echogenic clot is seen in the lumen of the common femoral, femoral, popliteal, and posterior tibial veins. There is a normal response of the venous system to proximal and distal augmentation an d respiration. Greater saphenous vein is patent. CONCLUSION: No venous thrombosis of either lower extremity. Daniele Rai MD on July 22, 2017 at 20:15 Board Certified Radiologist. This report was verified electronically.
--- NOTE | 2017-07-22 20:18 | RADRPT ---
EXAM DATE/TIME: 07/22/2017 18:53 [facility] COMPARISON: US LEG BILATERAL VENOUS DOPPLER, July 22, 2017, 18:43. INDICATIONS : Pre op cardiac surgery. MEDICAL HISTORY : Myocardial infarction. Hypercholesterolemia. Chronic obstructive pulmonary disease. Anticoagulant the rapy. Coronary artery disease. Hypertension. Kidney stones. Diabetes. SURGICAL HISTORY : Coronary artery stent. ENCOUNTER: Initial ACUITY: 1 day PAIN SCORE: 0/10 LOCATION: Bilateral legs. GREATER SAPHENOUS VEIN THIGH: PROXIMAL: Right 7 mm Left 8 mm MID: Right 4 mm Left 5 mm DISTAL: Right 5 mm Left 4 mm CALF: PROXIMAL: Right 4 mm Left 3 mm MID: Right 2 mm Left 3 mm DISTAL: Right 3 mm Left 3 mm FINDINGS: The venous system of the lower extremities are patent by color Doppler imaging. Measurements of the leg veins (in mm) are listed above. CONCLUSION: Lower extremity greater saphenous vein mapping as above. Daniele Rai MD on July 22, 2017 at 20:16 Board Certified Radiologist. This report was verified electronically.
[2017-07-22 20:33] LABS: HEMOGLOBIN A1a 0.9 %; HEMOGLOBIN A1b 2.1 %; HEMOGLOBIN Ao 82.5 %; HEMOGLOBIN LA1C 2.6 %; HEMOGLOBIN P3 4.4 %
--- NOTE | 2017-07-22 20:33 | RADRPT ---
EXAM DATE/TIME: 07/22/2017 19:14 [facility] COMPARISON: No previous studies available for comparison. INDICATIONS : Pre op cardiac surgery. MEDICAL HISTORY : Hypercholesterolemia. Chronic obstructive pulmonary disease. Myocardial infarction. Anticoagulant the rapy. Coronary artery disease. Hypertension. Kidney stones. Diabetes. SURGICAL HISTORY : Coronary artery stent. ENCOUNTER: Initial ACUITY: 1 day PAIN SCORE: 0/10 LOCATION: Bilateral neck PEAK SYSTOLIC VELOCITIES (cm/sec): ICA/CCA RATIO: Right: Unable to determine. Left: 2.5 ICA: Right: Non visualized. Left: 212 CCA: Right: 55 Left: 85 ECA: Right: 113 Left: 131 VERTEBRAL: Right: 48 antegrade Left: 30 antegrade Elevated flow velocities and ICA/CCA ratios have been found to correlate with increased degrees of vessel stenosis, calculated as percentage of diameter relative to a normal segment of distal ICA/CCA FINDINGS: RIGHT CAROTID: There is mild to moderate plaque in the CCA and bulb region. More advanced atherosclerotic plaque see n of the proximal ICA and without perceptible blood flow. LEFT CAROTID: Moderate plaque of the bulb and proximal internal carotid artery. VERTEBRAL ARTERIES: Antegrade flow is seen in both vertebral arteries. MISCELLANEOUS: None. CONCLUSION: 1. Bilateral carotid bifurcation atherosclerosis. 2. Suspected occlusion proximally of the right internal carotid artery. 3. Borderline hemodynamically significant stenosis of the proximal left internal carotid artery. Daniele Rai MD on July 22, 2017 at 20:30 Board Certified Radiologist. This report was verified electronically.
[2017-07-22] MEDS: ATORVASTATIN 40 MG TAB PO SCH (21:45)
[2017-07-22] MEDS ORDERED: ACETAMINOPHEN 325 MG TAB PO ONE (21:45)
[2017-07-23] VITALS (25 sets, daily range): BP systolic 120–151; BP diastolic 52–72; PULSE 70–97; RESP 16–18; TEMP 97.2–98.7; O2SAT 96–98
[2017-07-23 05:44] LABS: AUTOMATED NEUTROPHIL # 5.3 TH/MM3 (1.8-7.7); BASOPHIL # 0.1 TH/MM3 (0-0.2); BASOPHIL % 0.8 % (0.0-2.0); EOSINOPHIL # 0.3 TH/MM3 (0-0.4); EOSINOPHIL % 3.6 % (0.0-4.0); HEMATOCRIT 43.8 % (39.0-51.0); HEMO FLAGS DIFF FINAL; LYMPH % 21.9 % (9.0-44.0); LYMPHOCYTE # 1.9 TH/MM3 (1.0-4.8); MEAN CELL VOLUME 94.5 FL (80.0-100.0); MEAN CORPUSCULAR HGB CONC 33.8 % (32.0-36.0); MONO % 12.4 % (0.0-8.0); NEUT % 61.3 % (16.0-70.0); PLATELET COUNT 333 TH/MM3 (150-450); RED BLOOD COUNT 4.64 MIL/MM3 (4.50-5.90); RED CELL DISTRIBUTION WIDTH 15.1 % (11.6-17.2); WHITE BLOOD COUNT 8.6 TH/MM3 (4.0-11.0)
[2017-07-23 06:16] LABS: BICARBONATE 25.7 MEQ/L (21.0-32.0); POTASSIUM 4.3 MEQ/L (3.5-5.1)
[2017-07-23] MEDS: RESP: ALBUTEROL 2.5 MG/IPRATROPIUM 0.5 MG NEB (SCH) INH ×3 (07:31→21:45)
[2017-07-23] MEDS: INSULIN ASPART SUPPLEMENTAL SCALE SQ SCH ×4 (08:00→21:00)
[2017-07-23] MEDS: SODIUM CHLORIDE 0.9% FLUSH 10 ML FLUSH IV FLUSH SCH ×2 (08:50→19:44)
[2017-07-23] MEDS: ASPIRIN 325 MG TAB PO SCH (08:51)
[2017-07-23] MEDS: METOPROLOL TARTRATE 25 MG TAB PO SCH ×2 (08:51→19:44)
[2017-07-23] MEDS: ISOSORBIDE MONONITRATE 60 MG TAB PO SCH (08:51)
[2017-07-23] MEDS: amLODIPine BESYLATE 5 MG TAB PO SCH (08:58)
[2017-07-23] MEDS ORDERED: CLOPIDOGREL 300 MG TAB PO ONE (10:30)
--- NOTE | 2017-07-23 10:49 | PD.CARD.PN ---
Subjective Subjective Remarks no chest pain friend at bedside Objective Medications Active Medications Acetaminophen (Tylenol) 650 mg ONCE ONCE PO Last administered on 07/23/17 03: 55; Admin Dose 650 MG; Start 07/22/17 at 21:45; Stop 07/22/17 at 21:46; Status DC Atorvastatin Calcium (Lipitor) 40 mg HS PO Last administered on 07/22/17 21:45 ; Admin Dose 40 MG; Start 07/22/17 at 21:00 Bacitracin (Bacitracin Oint Packet) 0.9 gm ONCE ONCE TOP; Start 07/22/17 at 12: 00; Stop 07/22/17 at 12:03; Status DC Fentanyl Citrate (fentaNYL INJ) 100 mcg STK-MED ONCE .ROUTE Last administered on 07/22/17 11:22; Admin Dose 100 MCG; Start 07/22/17 at 10:56; Stop 07/22/17 at 10:57; Status DC Heparin Sodium (Porcine) (Heparin Inj) 10,000 units STK-MED ONCE .ROUTE Last administered on 07/22/17 11:28; Admin Dose 10,000 UNITS; Start 07/22/17 at 10: 56; Stop 07/22/17 at 10:57; Status DC Heparin Sodium/ Sodium Chloride 1,000 ml @ As Directed STK-MED ONCE .ROUTE; Start 07/22/17 at 10:55; Stop 07/22/17 at 10:56; Status DC Iohexol (OMNIPAQUE 350 INJ (Vegetable Farmer)) 50 ml STK-MED ONCE OTHER; Start 07/22/17 at 15:52; Stop 07/22/17 at 15:53; Status DC Midazolam HCl (Versed Inj) 2 mg STK-MED ONCE .ROUTE; Start 07/22/17 at 10:56; Stop 07/22/17 at 10:57; Status DC Miscellaneous Information 1 ONCE ONCE XX Last administered on 07/22/17 12:00; Admin Dose 1; Start 07/22/17 at 12:00; Stop 07/22/17 at 12:01; Status DC Nitroglycerin 5 ml @ As Directed STK-MED ONCE .ROUTE Last administered on 11:28; Admin Dose 1 MLS/HR; Start 07/22/17 at 10:56; Stop 07/22/17 at 10:57 ; Status DC Vital Signs / I&O Vital Signs Date Time Temp Pulse Resp B/P (MAP) Pulse Ox O2 Delivery O2 Flow Rate FiO2 07/23/17 07:00 78 07/23/17 07:00 98.4 85 18 151/72 (98) 97 07/23/17 06:03 70 07/23/17 05:12 82 07/23/17 04:04 87 07/23/17 03:30 98.7 81 16 150/72 (98) 97 07/23/17 03:05 86 07/23/17 02:05 81 07/23/17 01:01 72 07/23/17 00:03 79 07/22/17 23:30 98.1 85 16 139/67 (91) 98 07/22/17 23:08 96 07/22/17 22:02 86 07/22/17 21:03 82 07/22/17 20:40 83 07/22/17 20:33 99 21 07/22/17 19:30 97.7 80 16 129/64 (85) 99 07/22/17 19:00 85 07/22/17 18:05 85 07/22/17 17:13 84 07/22/17 16:07 96 07/22/17 15:47 91 07/22/17 15:47 98.0 91 18 142/72 (95) 99 07/22/17 12:20 97 Room Air I/O 07/22/17 07/22/17 07/22/17 07/23/17 07/23/17 07/23/17 07:00 15:00 23:00 07:00 15:00 23:00 Intake Total 1000 ml 240 ml 240 ml Output Total 200 ml 325 ml Balance 1000 ml 40 ml -85 ml Intake Oral 240 ml 240 ml IV Total 1000 ml Output Urine Total 200 ml 325 ml # Bowel Movements 1 Physical Exam GENERAL: SKIN: Warm and dry. HEAD: Normocephalic. EYES: No scleral icterus. No injection or drainage. NECK: Supple, trachea midline. No JVD or lymphadenopathy. CARDIOVASCULAR: Regular rate and rhythm without murmurs, gallops, or rubs. RESPIRATORY: Breath sounds equal bilaterally. No accessory muscle use. GASTROINTESTINAL: Abdomen soft, non-tender, nondistended. MUSCULOSKELETAL: No cyanosis, or edema. BACK: Nontender without obvious deformity. No CVA tenderness. Laboratory Laboratory Tests Test 07/22/17 16:30 07/22/17 17:18 07/23/17 05:15 Nasal Screen MRSA (PCR) MRSA NOT DETECTED Hemoglobin A1c 6.9 % White Blood Count 8.6 TH/MM3 Red Blood Count 4.64 MIL/MM3 Hemoglobin 14.8 GM/DL Hematocrit 43.8 % Mean Corpuscular Volume 94.5 FL Mean Corpuscular Hemoglobin 32.0 PG Mean Corpuscular Hemoglobin Concent 33.8 % Red Cell Distribution Width 15.1 % Platelet Count 333 TH/MM3 Mean Platelet Volume 8.3 FL Neutrophils (%) (Auto) 61.3 % Lymphocytes (%) (Auto) 21.9 % Monocytes (%) (Auto) 12.4 % Eosinophils (%) (Auto) 3.6 % Basophils (%) (Auto) 0.8 % Neutrophils # (Auto) 5.3 TH/MM3 Lymphocytes # (Auto) 1.9 TH/MM3 Monocytes # (Auto) 1.1 TH/MM3 Eosinophils # (Auto) 0.3 TH/MM3 Basophils # (Auto) 0.1 TH/MM3 CBC Comment DIFF FINAL Differential Comment Blood Urea Nitrogen 27 MG/DL Creatinine 1.29 MG/DL Random Glucose 113 MG/DL Calcium Level 8.4 MG/DL Sodium Level 141 MEQ/L Potassium Level 4.3 MEQ/L Chloride Level 108 MEQ/L Carbon Dioxide Level 25.7 MEQ/L Anion Gap 7 MEQ/L Estimat Glomerular Filtration Rate 54 ML/MIN Imaging Last Impressions Lower Extremity Ultrasound 07/22/17 0000 Signed Impressions: Service Date/Time: Saturday, July 22, 2017 18:53 - CONCLUSION: Lower extremity greater saphenous vein mapping as above. Daniele Rai MD Carotid Artery Ultrasound 07/22/17 0000 Signed Impressions: Service Date/Time: Saturday, July 22, 2017 19:14 - CONCLUSION: 1. Bilateral carotid bifurcation atherosclerosis. 2. Suspected occlusion proximally of the right internal carotid artery. 3. Borderline hemodynamically significant stenosis of the proximal left internal carotid artery. Daniele Rai MD Myocardial Perfusion Scan Nuc Med 07/21/17 0000 Signed Impressions: Service Date/Time: Friday, July 21, 2017 10:50 - CONCLUSION: Moderate size severe lateral/inferolateral and apical perfusion abnormality with moderate redistribution. RISK CATEGORY: High (>3%% Annual Mortality Rate) Daniele Omalley MD CT Angiography 07/20/17 0147 Signed Impressions: Service Date/Time: Thursday, July 20, 2017 02:18 - CONCLUSION: 1. 8mm nodule superior segment left lower lobe with some spiculation. Finding new since 2014. Primary consideration is small bronchogenic carcinoma. This could be worked up as an outpatient initially with PET/CT. Percutaneous biopsy cardi difficult due to small size and location under left posterior rib. 2. Negative for pulmonary embolus. Ulisses Robledo MD Chest X-Ray 07/19/17 1780 Signed Impressions: Service Date/Time: Wednesday, July 19, 2017 23:58 - CONCLUSION: 1. No acute findings. Ulisses Robledo MD Assessment and Plan Assessment and Plan unstable angina - severe multivessel disease. discussed options with dr patel. He is very high risk for surgery and not felt to be a good surgical candidate. [employer] diagonal and LCx will be managed medically given collateralization. LAD moderate stenosis to manage medically. Plan for PCI RCA with possible atherectomy tomorrow am. asa reload plavix NPO p MN Emeka Judd MD Jul 23, 2017 10:49
--- NOTE | 2017-07-23 15:26 | HHI.PR ---
Subjective Remarks No acute setbacks overnight per nursing. Objective Vital Signs Date Time Temp Pulse Resp B/P (MAP) Pulse Ox O2 Delivery O2 Flow Rate FiO2 07/23/17 14:00 72 07/23/17 13:00 72 07/23/17 12:00 74 07/23/17 11:32 82 07/23/17 11:32 97.6 79 18 128/69 (88) 97 07/23/17 10:00 76 07/23/17 09:00 97 07/23/17 08:00 82 07/23/17 07:00 78 07/23/17 07:00 98.4 85 18 151/72 (98) 97 07/23/17 06:03 70 07/23/17 05:12 82 07/23/17 04:04 87 07/23/17 03:30 98.7 81 16 150/72 (98) 97 07/23/17 03:05 86 07/23/17 02:05 81 07/23/17 01:01 72 07/23/17 00:03 79 07/22/17 23:30 98.1 85 16 139/67 (91) 98 07/22/17 23:08 96 07/22/17 22:02 86 07/22/17 21:03 82 07/22/17 20:40 83 07/22/17 20:33 99 21 07/22/17 19:30 97.7 80 16 129/64 (85) 99 07/22/17 19:00 85 07/22/17 18:05 85 07/22/17 17:13 84 07/22/17 16:07 96 07/22/17 15:47 91 07/22/17 15:47 98.0 91 18 142/72 (95) 99 I/O 07/22/17 07/22/17 07/22/17 07/23/17 07/23/17 07/23/17 07:00 15:00 23:00 07:00 15:00 23:00 Intake Total 1000 ml 240 ml 240 ml Output Total 200 ml 325 ml Balance 1000 ml 40 ml -85 ml Intake Oral 240 ml 240 ml IV Total 1000 ml Output Urine Total 200 ml 325 ml # Bowel Movements 1 Result Diagram: 07/23/1715 07/23/17514 Objective Remarks lying in bed, sleeping, easily awoken Unlabored breathing Heart rate regular rhythm, no murmurs, Refill less than 2 seconds in hands A/P Assessment and Plan 82-year-old male with a past medical history of CAD, ischemic cardiomyopathy, COPD who presented for shortness of breath and diaphoresis Chest Pain/Shortness of breath/Diaphoresis: patient presented concerned he was having a heart attack, with history of ischemic cardiomyopathy, concern for ACS. Does not appear to be in COPD or CHF exacerbation clinically. Reviewed: EKG with sinus tachycardia, no specific ischemic changes. Initial troponin 0.02. BNP 162. CXR clear. Pulmonary angiogram with abnormal lung nodule, no PE. -Unstable angina per cards. -Continue Plavix, statin, Imdur, aspirin, BB -Lipid panel with elevated LDL 111, will increase Lipitor to 40mg hs -Nuclear stress test showed moderate size severe lateral/inferolateral and apical perfusion abnormality with moderate redistribution. -Not a good surgical candidate per cardiothoracic surgery, we'll plan for PCI RCA in tomorrow a.m.. History of ischemic cardiomyopathy: Previous catheterization from 2012 showed EF 25%. -Echocardiogram showed EF 25-30%. -lisinopril and lasix on hold for HOMERO -metoprolol Lung mass:This was documented last year and the patient was told to follow-up outpatient. Apparently he did not. Patient was informed again of the findings. -Strongly encourage outpatient follow-up Diabetes mellitus: -Held home metformin -Monitor Accu-Cheks and cover with SSI needed CKD stage III: Creatinine 1.54, previously 1.52 on 06/05/16. -Monitor, slightly worse, Cr increased to 1.8, given IVF and repeat labs today pending COPD: chronic, possibly mild exacerbation upon arrival, now resolved -Given prednisone 40 mg daily 3 for possible mild COPD exacerbation (d/c now secondary to confusion) -Scheduled and as needed nebs Hyperkalemia: K 5.7, unclear etiology -give IVF, repeat labs with K 4.4, resolved Acute Encephalopathy: patient more altered on 07/21, suspect secondary to steroids vs uremia. -give IVF -check repeat BMP, ammonia, TSH -monitor neuro checks Lenin Spear MD Jul 23, 2017 15:26
[2017-07-23] MEDS: ATORVASTATIN 40 MG TAB PO SCH (19:44)
[2017-07-24] VITALS (33 sets, daily range): BP systolic 110–160; BP diastolic 59–90; PULSE 79–109; RESP 16–20; TEMP 97.7–98.9; O2SAT 93–98
[2017-07-24] MEDS: RESP: ALBUTEROL 2.5 MG/IPRATROPIUM 0.5 MG NEB (SCH) INH ×2 (07:28→13:11)
[2017-07-24] MEDS: INSULIN ASPART SUPPLEMENTAL SCALE SQ SCH ×4 (08:00→21:00)
--- NOTE | 2017-07-24 08:13 | PD.CARD.PN ---
Subjective Subjective Remarks alert and oriented. denies chest pain or SOB. (Genoveva Willard) Objective Medications Current Medications Medications (Trade) Dose Ordered Sig/Maury Route Start Time Stop Time Status Last Admin (NS Flush) 2 ml BID IV FLUSH 07/20/17 09:00 07/23/17 19:44 (NS Flush) 2 ml UNSCH PRN IV FLUSH 07/20/17 02:00 (Albuterol Neb) 2.5 mg Q2HR NEB PRN INH 07/20/17 02:00 (D50w (Vial) Inj) 50 ml UNSCH PRN IV PUSH 07/20/17 06:00 (Glucagon Inj) 1 mg UNSCH PRN OTHER 07/20/17 06:00 (NovoLOG SUPPLEMENTAL SCALE) 1 ACHS SLIDING SCALE SQ 07/20/17 08:00 07/23/17 17:18 (Imdur) 60 mg DAILY PO 07/20/17 09:00 07/23/17 08:51 (Duoneb Neb) 1 ampule Q6HR WHILE AWAKE NEB INH 07/20/17 14:00 07/24/17 07:28 (Lopressor) 12.5 mg BID PO 07/20/17 21:00 07/23/17 19:44 (Pill Splitter) 1 ea UNSCH PRN OTHER 07/20/17 18:15 (Lipitor) 40 mg HS PO 07/22/17 21:00 07/23/17 19:44 (Aspirin Chew) 81 mg DAILY PO 07/24/17 09:00 (Plavix) 75 mg DAILY PO 07/24/17 09:00 (Prinivil) 20 mg DAILY PO 07/24/17 09:00 Vital Signs / I&O Vital Signs Date Time Temp Pulse Resp B/P (MAP) Pulse Ox O2 Delivery O2 Flow Rate FiO2 07/24/17 06:01 79 07/24/17 05:59 98.0 80 16 140/76 (97) 94 07/24/17 05:08 81 07/24/17 04:07 89 07/24/17 03:24 80 07/24/17 02:35 89 07/24/17 01:00 81 07/24/17 00:43 79 07/23/17 23:00 95 07/23/17 23:00 97.2 85 16 142/52 (82) 96 07/23/17 21:51 76 07/23/17 21:45 98 21 07/23/17 20:00 80 07/23/17 19:00 98.0 81 16 137/69 (91) 98 07/23/17 19:00 84 07/23/17 18:22 88 07/23/17 17:00 80 07/23/17 16:00 76 07/23/17 15:00 83 07/23/17 15:00 97.8 84 18 120/59 (79) 97 07/23/17 14:00 72 07/23/17 13:00 72 07/23/17 12:00 74 07/23/17 11:32 82 07/23/17 11:32 97.6 79 18 128/69 (88) 97 07/23/17 10:00 76 07/23/17 09:00 97 I/O 07/23/17 07/23/17 07/23/17 07/24/17 07/24/17 07/24/17 07:00 15:00 23:00 07:00 15:00 23:00 Intake Total 240 ml 210 ml 240 ml Output Total 325 ml 425 ml 400 ml Balance -85 ml -215 ml -160 ml Intake Oral 240 ml 210 ml 240 ml Output Urine Total 325 ml 425 ml 400 ml # Bowel Movements 0 Physical Exam HEAD: Atraumatic. Normocephalic. EYES: Pupils equal and round. ENT: No nasal bleeding or discharge. Mucous membranes pink and moist. NECK: Trachea midline. No JVD. CARDIOVASCULAR: Regular rate and rhythm. No murmurs RESPIRATORY: No accessory muscle use. Clear to auscultation. Breath sounds equal bilaterally. GASTROINTESTINAL: Abdomen soft, non-tender, nondistended. MUSCULOSKELETAL: Extremities without clubbing, cyanosis, or edema. NEUROLOGICAL: Awake and alert. No obvious cranial nerve deficits. Normal speech. PSYCHIATRIC: Appropriate mood and affect; insight and judgment normal. Laboratory Laboratory Tests Test 07/20/17 00:00 07/20/17 09:15 07/20/17 19:35 07/21/17 12:56 Prothrombin Time 11.4 SEC Prothromb Time International Ratio 1.0 RATIO Activated Partial Thromboplast Time 29.4 SEC Lactic Acid Level 1.5 mmol/L Blood Urea Nitrogen 23 MG/DL Creatinine 1.54 MG/DL Random Glucose 145 MG/DL Total Protein 7.7 GM/DL Albumin 3.4 GM/DL Calcium Level 8.9 MG/DL Magnesium Level 2.0 MG/DL Alkaline Phosphatase 56 U/L Aspartate Amino Transf (AST/SGOT) 11 U/L Alanine Aminotransferase (ALT/SGPT) 22 U/L Total Bilirubin 0.7 MG/DL Sodium Level 138 MEQ/L Potassium Level 4.0 MEQ/L Chloride Level 106 MEQ/L Carbon Dioxide Level 23.6 MEQ/L Total Creatine Kinase 41 U/L B-Type Natriuretic Peptide 162 PG/ML Urine Color YELLOW Urine Turbidity CLEAR Urine pH 5.5 Urine Specific [place] GREATER THAN 1.050 Urine Protein 30 mg/dL Urine Glucose (UA) 150 mg/dL Urine Ketones NEG mg/dL Urine Occult Blood NEG Urine Nitrite NEG Urine Bilirubin NEG Urine Urobilinogen LESS THAN 2.0 MG/DL Urine Leukocyte Esterase NEG Urine RBC 1 /hpf Urine WBC 2 /hpf Urine Squamous Epithelial Cells <1 /hpf Urine Bacteria RARE /hpf Urine Hyaline Casts 2 /lpf Urine Mucus MOD /lpf Microscopic Urinalysis Comment CULT NOT INDICATED Troponin I LESS THAN 0.02 NG/ML Triglycerides Level 117 MG/DL Cholesterol Level 175 MG/DL LDL Cholesterol 111 MG/DL HDL Cholesterol 40.8 MG/DL Cholesterol/HDL Ratio 4.28 RATIO Thyroid Stimulating Hormone 3rd Gen 0.609 uIU/ML Test 07/21/17 15:07 07/21/17 17:50 07/22/17 16:30 07/22/17 17:18 Ammonia 14 MCMOL/L Urine Random Creatinine 175.8 MG/DL Urine Random Sodium 29 MEQ/L Nasal Screen MRSA (PCR) MRSA NOT DETECTED Hemoglobin A1c 6.9 % Test 07/23/17 05:15 White Blood Count 8.6 TH/MM3 Red Blood Count 4.64 MIL/MM3 Hemoglobin 14.8 GM/DL Hematocrit 43.8 % Mean Corpuscular Volume 94.5 FL Mean Corpuscular Hemoglobin 32.0 PG Mean Corpuscular Hemoglobin Concent 33.8 % Red Cell Distribution Width 15.1 % Platelet Count 333 TH/MM3 Mean Platelet Volume 8.3 FL Neutrophils (%) (Auto) 61.3 % Lymphocytes (%) (Auto) 21.9 % Monocytes (%) (Auto) 12.4 % Eosinophils (%) (Auto) 3.6 % Basophils (%) (Auto) 0.8 % Neutrophils # (Auto) 5.3 TH/MM3 Lymphocytes # (Auto) 1.9 TH/MM3 Monocytes # (Auto) 1.1 TH/MM3 Eosinophils # (Auto) 0.3 TH/MM3 Basophils # (Auto) 0.1 TH/MM3 CBC Comment DIFF FINAL Differential Comment Blood Urea Nitrogen 27 MG/DL Creatinine 1.29 MG/DL Random Glucose 113 MG/DL Calcium Level 8.4 MG/DL Sodium Level 141 MEQ/L Potassium Level 4.3 MEQ/L Chloride Level 108 MEQ/L Carbon Dioxide Level 25.7 MEQ/L Anion Gap 7 MEQ/L Estimat Glomerular Filtration Rate 54 ML/MIN (Genoveva Willard) Assessment and Plan Problem List: (1) Ischemic cardiomyopathy ICD Codes: I25.5 - Ischemic cardiomyopathy Status: Chronic (2) CAD, multiple vessel ICD Codes: I25.10 - Atherosclerotic heart disease of [place] coronary artery without angina pectoris Assessment and Plan 82 yo M with COPD, ischemic cardiomyopathy (EF 25%),CKD, HTN, lung mass, and CAD admitted for unstable angina and abnormal stress testing. Cardiac cath revealed severe multivessel coronary disease. CV consulted and determined patient is not a surgical candidate due to multiple co-morbid risk factors. CAD- multi-vessel. not a surgical candidate. PRIVATE CHEF diagonal and Lcx with good collaterals, manage medically LAD moderate stenosis, manage medically PCI planned for today for RCA with possible atherectomy. creatinine stable. plavix has been resumed. (Genoveva Willard) Assessment and Plan -------- succcessful PCI RCA BMS asa plavix DC planning for tomorrow (Emeka Judd MD) Genoveva Willard Jul 24, 2017 08:13 Emeka Judd MD Jul 24, 2017 11:06
[2017-07-24] MEDS: CLOPIDOGREL 75 MG TAB PO SCH (08:24)
[2017-07-24] MEDS: SODIUM CHLORIDE 0.9% FLUSH 10 ML FLUSH IV FLUSH SCH ×2 (08:24→21:00)
[2017-07-24] MEDS: METOPROLOL TARTRATE 25 MG TAB PO SCH ×2 (08:25→21:44)
[2017-07-24] MEDS: ASPIRIN 81 MG CHEW TAB PO SCH (08:26)
[2017-07-24] MEDS: ISOSORBIDE MONONITRATE 60 MG TAB PO SCH (08:26)
[2017-07-24] MEDS ORDERED: LISINOPRIL 20 MG TAB PO SCH (09:00)
--- NOTE | 2017-07-24 09:04 | RSPPFT ---
DATE OF PROCEDURE: 07/23/17 COMMENTS: VOLUMES DYNAMIC: FVC and FEV1 very severely reduced. FLOWS: FEV1% normal; FEF 25-75 very severely reduced. IMPRESSION: Very severe reduction in lung volumes in the range of 15%. There is a comment from the collection technician however, that the patient had difficulty with the study and gave a poor effort.
[2017-07-24] MEDS ORDERED: MIDAZOLAM HCL 2 MG/2 ML VIAL ONE ×2 (09:17→10:07)
[2017-07-24] MEDS ORDERED: HEPARIN-NS/PF INJ 1,000 ML ONE (09:17)
[2017-07-24] MEDS ORDERED: SODIUM CHLORID 0.9% 500 ML INJ 500 ML ONE (09:17)
[2017-07-24] MEDS ORDERED: HEPARIN-NS/PF INJ 500 ML ONE (09:45)
[2017-07-24] MEDS ORDERED: IOHEXOL 350 MG/ML 100 ML BTL (for Cath Lab) OTHER ONE (09:51)
[2017-07-24] MEDS ORDERED: LIDOCAINE HCL 1% PF 30 ML VIAL ONE (10:06)
[2017-07-24] MEDS ORDERED: HEPARIN SODIUM - IV 10,000 UNITS/10 ML VIAL ONE (10:08)
[2017-07-24] MEDS ORDERED: MISC INFORMATION XX ONE (11:15)
[2017-07-24] MEDS ORDERED: BACITRACIN OINT 0.9 GM PKT TOP ONE (11:15)
[2017-07-24] MEDS ORDERED: LIDOCAINE 2% JELLY 30 ML TUBE TOP PRN (11:15)
--- NOTE | 2017-07-24 11:19 | CATHPROC ---
[facility] HIS Report Study Information Study Number Admission Scheduled Start Study Start [id number] Jul 22 2017 1:08PM 07/23/2017 Jul 24 2017 9:15AM [place] [facility] Cardiac Catheterization Admit Source Facility Department Other [facility] - Hemodialysis Lab Technician Physician and Clinical Staff Initial Emeka Dubon Electronics Engineering Professor Chen Bowling RN Electronics Engineering Professor Jackie Ring BSRN Other cathlab, cathlab Recorder Ortiz Arreaga RCIS(BS) Scrub Georgina Kendrick RT(R) Procedures Performed Procedure Location (Site) Vessel Name Coronary Angiograms RCA Right Coronary L Heart Cath PTCA RCA Prox Right Coronary Stent RCA Prox Right Coronary Wire insertion Radial (right) Radial Art. Equipment Time Blocker And Polisher Description Size Mfg Part Number Used/Scraped COPILOT VALVE, BLEEDBACK [id number] 09:16 [employer] Used CONTROL *[id number] COPILOT VALVE, BLEEDBACK [id number] 10:21 [employer] Used CONTROL *[id number] MYNX SPANISH INSTRUCTOR CLOSURE DEVICE [id number] 10:56 ACCESS CLOSURE INC. FR 5 Used TAVR *[id number] TAVR [id number] 10:19 BROWN ANTONIO PACING CATHETER J CURVE FR 5 Used *[id number] TRANSDUCER, TRUWAVE [id number] 09:16 BROWN ANTONIO * Used W/STOCKCOCK *[id number] CARDIOVASCULAR CATHETER, CORONARY CLASSIC [id number] 10:29 Used SYSTEMS INC. 1.25MM *[id number] CARDIOVASCULAR WIRE, VIPER ADVANCE [facility]-[id number] 10:27 Used SYSTEMS INC. CORONARY FLP *[id number]-502-10.0- INTRODUCER SET, 09:59 COOK INC. FR 5 [id number]-[id number] Used MICROPUNCTURE, STIFFENED *[id number] *[id number] [phone] *[id number] 09:16 MEDLINE INDUSTRIES PACK, CCL CUSTOM * Used *[id number] [id number] 09:16 MEDLINE PACER PEN, SKIN DUAL W/ RULER * Used *[id number] BALLOON, 1.25 X 6MM SPRINTER [id number] 10:23 MEDTRONIC 6MM Used LEGEND OTW *[id number] 10:40 MEDTRONIC BALLOON, 2.5 X 15MM EUPHORA 15MM Used *[id number] [id number] 10:45 MEDTRONIC STENT, 2.5 26 INTEGRITY 2.5 26 Used *5856939 [id number] 10:48 MEDTRONIC STENT, 2.5 26 INTEGRITY 2.5 26 Used *[id number] [id number] 09:21 [employer] MEDICAL 30 CA INDEFLATOR Used *[id number] BAND, RADIAL COMPRESSION TR [id number] 10:59 [employer] 24CM Used SHORT 24 *[id number] SHEATH, FR6 RADIAL PRELUDE 10:11 [employer] MEDICAL FR 6 [id number] Used EASE 11CM PSI-6F- 09:16 [employer] MEDICAL SHEATH, FR6.5 PRELUDE 11CM FR 6.5 038ACT Used *[id number] PSI-6F- 09:55 [employer] MEDICAL SHEATH, FR6.5 PRELUDE 11CM FR 6.5 038ACT Used *[id number] [id number] 09:16 [employer] WIRE, 3MMJ .035 180CM 180CM Used *[id number] [id number] 09:16 NAMIC MANIFOLD, 4 PORT * Used *[id number] 09:16 NYCOMED OMNIPAQUE, 350 MG, 150ML 150ML [id number] Used [id number] 09:16 RICHARD MEDICAL BLANKET,WARM AIR CCL * Used *[id number] WIRE, RUNTHROUGH NS FLOPPY 25-1013 10:23 [employer]forton [employer] MEDICAL 300CM Used .014 300CM *[id number] Equipment Model, Serial, Lot Number and Expiration Data Description Model Number Serial Number Lot Number Expiration Date BAND, RADIAL COMPRESSION TR [id number] 04-24-2020 SHORT 24 INTRODUCER SET, [id number] 06-03-2020 MICROPUNCTURE, STIFFENED STENT, 2.5 26 INTEGRITY [id number] 03-06-2018 STENT, 2.5 26 INTEGRITY [id number] 02-04-2019 WIRE, VIPER ADVANCE CORONARY [id number] 09-24-2018 History: Current Medications Medication Dosage/Unit Route Frequency Last Date/Time Taken ASA PLAVIX LIPITOR Glucophage NORVASC Imdur PREDNISONE History: Allergies Allergy Reaction No Known Allergies History: Risk Factors Family History of Hypertension Dyslipidemia Previous NM Previous Heart Failure Premature CAD Yes Yes No No No Prior Valve Prior PCI Prior PCIDate Prior CABG Surgery No Yes 10/26/2012 No Cerebrovascular Peripheral Artery Chronic Lung On Dialysis Diabetes Diabetes Therapy Disease Disease Disease No No No Yes Yes Oral History: Symptoms/Diagnosis Selection Items SOB History: Stress Tests Stress or Imaging Studies Performed Yes Standard Exercise Stress Test No Stress Echo No Stress Test SPECT Stress Test SPECT Result Stress Test SPECT Ischemia Risk/Extent Yes Positive High Stress Test CMR No Cardiac CTA Coronary Calcium Score No No History: Other Disease Selection Items COPD HTN History: NM/CV Data Previous Cath Date 07/22/2017 History: Other Current Smoker Method Quit No Cigarettes 3 Years Ago Labs Hgb (g/dl) Hct (%) WBC (l/cumm) Platelets (thousands) 11.60-17.00 35.00-51.00 4.00-11.00 150.00-450.00 14.8 43.8 8.6 333 Glucose (mg/dl) Creatinine (mg/dl) 74.00-106.00 0.50-1.30 113 1.3 Na (meq/l) K (meq/l) 136.00-145.00 3.50-5.10 141 4.3 INR (PTT:PT) 0.90-1.10 1 Troponin I (ng/ml) CPK (u/l) CPK-MB (ng/ML) 0.02-0.05 26.00-308.00 0.50-3.60 0.02 41 Not Drawn Medication Medication Total Dose (Bolus/Oral) Medication Total Dosage/Unit 1% XYLOCAINE 33 mL FENTANYL 75 mcg HEPARIN 7000 units OXYGEN 2 l/min VERSED 3 mg Medications (Bolus/Oral) Medication Time Given Dosage/Unit Administered By Reason OXYGEN 07/24/2017 9:30:04 AM 2 l/min Jackie Ring 2 l/min OXYGEN given in lab by Jackie Ring BSRN via Nasal. Ordered by Emeka Judd. VERSED 07/24/2017 9:51:02 AM 1 mg Chen Bowling 1 mg VERSED given in lab by Chen Bowling RN in Left Wrist via Peripheral IV. Ordered by St ariel Judd. FENTANYL 07/24/2017 9:52:02 AM 25 mcg Chen Bowling 25 mcg FENTANYL given in lab by Chen Bowling RN in Left Wrist via Peripheral IV. Ordered by Emeka Judd. 1% XYLOCAINE 07/24/2017 9:56:17 AM 30 mL Emeka Judd 30 mL 1% XYLOCAINE given in lab by Emeka Judd in Right Groin via Subcutaneous. VERSED 07/24/2017 10:08:49 AM 1 mg Chen Bowling 1 mg VERSED given in lab by Chen Bowling RN in Left Wrist via Peripheral IV. Ordered by St ariel Judd. FENTANYL 07/24/2017 10:09:02 AM 25 mcg Chen Bowling 25 mcg FENTANYL given in lab by Chen Bowling RN in Left Wrist via Peripheral IV. Ordered by Emeka Judd. 1% XYLOCAINE 07/24/2017 10:12:32 AM 3 mL Emeka Judd 3 mL 1% XYLOCAINE given in lab by Emeka Judd in Right Radial via Subcutaneous. HEPARIN 07/24/2017 10:18:00 AM 5000 units Jackie Ring 5000 units HEPARIN given in lab by Jackie Ring BSRN in Left Wrist via Peripheral IV. Ordered by Emeka Judd. HEPARIN 07/24/2017 10:34:18 AM 2000 units Jackie Ring 2000 units HEPARIN given in lab by Jackie Ring BSRN in Left Wrist via Peripheral IV. Ordered by Emeka Judd. VERSED 07/24/2017 10:49:39 AM 1 mg Chen Bowling 1 mg VERSED given in lab by Chen Bowling RN in Left Wrist via Peripheral IV. Ordered by St ariel Judd. FENTANYL 07/24/2017 10:50:02 AM 25 mcg Chen Bowling 25 mcg FENTANYL given in lab by Chen Bowling RN in Left Wrist via Peripheral IV. Ordered by Emeka Judd. Medication (Drip) Medication Time Given Dosage/Unit Concentration/Unit Diluent (ml) Solutio n IV Bolus 07/24/2017 10:03:13 AM 1000 mL (Bolus) D5W .45 NaCl 1000 mL (Bolus) IV Bolus given in lab by Jackie Ring BSRN in Left Wrist via Peripheral IV. Usin g D5W .45 NaCl. Ordered by Emeka Judd. IV Solutions 07/24/2017 9:14:57 AM 0 mL (IV) 500 NaCl .9 Patient arrived on IV Solutions given by cathlab cathvicky in Left Antecubital via Peripheral IV. Pump /Drip Flow = 20 ml/hr using NaCl .9. Ordered by Emeka Judd. Initial Case Assessment Cardiovascular HR Rhythm NIBP Chest Pain 101 nsr 130/85 0 Edema Present Skin color Skin None Normal Warm Dry Circulatory - Right Pulses Posterior Tibial Femoral d 1 Scale (0,1,2,3,4,d) Circulatory - Left Pulses Posterior Tibial Femoral d 1 Scale (0,1,2,3,4,d) Neurological State Oriented to time-place- Alert Moves all extremities person Respiration - General Respiration Rate SpO2 (%) (B/min) 15 96 Initial Case Assessment Cardiovascular HR Rhythm NIBP Chest Pain 83 nsr 143/84 0 Edema Present Skin color Skin None Normal Warm Dry Circulatory - Right Pulses Posterior Tibial Femoral d 1 Scale (0,1,2,3,4,d) Circulatory - Left Pulses Posterior Tibial Femoral d 1 Scale (0,1,2,3,4,d) Neurological State Oriented to time-place- Alert Moves all extremities person Respiration - General Respiration Rate SpO2 (%) (B/min) 15 96 Chronological Log Time Study Chronological Log 9:14:45 Patient arrived via Bed. 9:14:46 Patient Name, D.O.B, / Armband Verified By R.N. 9:14:46 Consent signed by the physician and the patient and verified by the Hemodialysis Lab Technician staff. 9:14:47 Pre-op and post- op instructions given; patient acknowledges understanding of instructions. 9:14:48 Verbal Stimulation=2 Physical Stimulation=2 Airway=2 Respiration=2 TOTAL=8. (0=absent, 1=li mited, 2=present) 9:14:49 Presedation assessment performed by Hemodialysis Lab Technician RN. 9:14:50 Immediate Presedation assesment performed by physician. 9:14:50 Patient has been NPO for More than 6Hrs. 9:14:51 Skin Breakdown- none per patient 9:14:53 Patient Warmer Placed on the Table. 9:14:54 Disposable Defibrillator Pads Placed On Patient. 9:14:54 Quirino Prominences Protected 9:14:57 A # 22 IV was noted in the Wrist (left). Grade = 0 Patient arrived on IV Solutions given by cathlab, cathlab in Left Antecubital via Peripheral I V. Pump/Drip Flow = 20 9:14:57 ml/hr using NaCl .9. Ordered by Emeka Judd. 9:14:58 History and physical on the chart or being dictated. 9:23:45 Reference ECG taken Vitals capture started with the following parameters, Patient=Adult, Interval=5 min, Initial Pr vjaozj=458 mmHg, 9:23:46 Deflation Rate=5 mmHg, Cuff placed on Left Ankle 9:24:28 QS=073 bpm, HLSL=931/85 mmhg, SpO2=94.0 %, Resp=11 B/min, Pain=0, Kuldip=10, Tang=2 Assessment: Initial Case, WE=763 BPM, Rhythm=nsr, UPHW=006/85 mmhg, Chest Pain=0, Edema=None, Color=Normal, Skin = Warm, Dry Right Pulses: Post Tib=d, Femoral=1 9:24:28 Left Pulses: Post Tib=d, Femoral=1 Neurological: State=Alert, Ox3, HAMMONDS Respiration: Resp=15 B/min, SpO2=96 % 9:29:21 HR=81 bpm, UDLW=778/80 mmhg, SpO2=95.0 %, Resp=14 B/min, Pain=0, Kuldip=10, Tang=2 9:29:24 Bilateral groins prepped with 2% chlorhexidine, and draped after a 3 minute waiting time. 9:30:04 2 l/min OXYGEN given in lab by Jackie Ring BSRN via Nasal. Ordered by Emeka Judd. 9:34:20 HR=93 bpm, CLXI=013/80 mmhg, SpO2=98.0 %, Resp=15 B/min, Pain=0, Kuldip=10, Tang=2 9:34:44 paged 9:37:48 Pressure channel 1 zeroed. 9:39:23 HR=92 bpm, JBRF=505/70 mmhg, SpO2=98.0 %, Resp=11 B/min, Pain=0, Kuldip=10, Tang=2 9:43:21 MD responded 9:44:22 HR=89 bpm, JYZT=078/69 mmhg, SpO2=97.0 %, Resp=13 B/min, Pain=0, Kuldip=10, Tang=2 9:47:02 MD arrived. 9:49:25 HR=80 bpm, NIBP=80/37 mmhg, SpO2=97.0 %, Resp=16 B/min, Pain=0, Kuldip=10, Tang=2 9:51:02 1 mg VERSED given in lab by Chen Bowling, RN in Left Wrist via Peripheral IV. Ordered by Emeka Judd. 9:52:02 25 mcg FENTANYL given in lab by Chen Bowling, RN in Left Wrist via Peripheral IV. Ordered by Emeka Judd. 9:52:59 Contrast Scanned 9:53:00 Immediate Presedation assesment performed by physician. Time Out. Correct patient, correct procedure, correct physician, power injector loaded with con trast with surgical team 9:53:44 present. Time Out Concurred by MD and individual staff in procedure. 9:53:54 Case Start 9:53:55 Verbal Stimulation=2 Physical Stimulation=2 Airway=2 Respiration=2 TOTAL=8. (0=absent, 1=cortez ited, 2=present) 9:54:18 HR=67 bpm, NIBP=72/42 mmhg, SpO2=97.0 %, Resp=16 B/min, Pain=0, Kudlip=10, Tang=2 Vitals capture started with the following parameters, Patient=Adult, Interval=5 min, Initial Pr zikunr=199 mmHg, 9:54:50 Deflation Rate=5 mmHg, Cuff placed on Left Ankle 9:55:17 HR=63 bpm, NIBP=73/42 mmhg, SpO2=98.0 %, Resp=11 B/min, Pain=0, Kuldip=10, Tang=2 9:55:55 NIBP STAT measurement started. 9:56:17 30 mL 1% XYLOCAINE given in lab by Emeka Judd in Right Groin via Subcutaneous. 9:57:35 Access site was Right Femoral Vein. 9:57:49 HR=67 bpm, NIBP=71/38 mmhg, SpO2=96.0 %, Resp=16 B/min, Pain=0, Kuldip=10, Tang=2 10:00:18 HR=62 bpm, NIBP=72/43 mmhg, SpO2=99 %, Resp=16 B/min, Pain=0, Kuldip=10, Tang=2 10:01:13 Access site was Right Femoral Artery. A INTRODUCER SET, MICROPUNCTURE, STIFFENED FR 5 was advanced into the Fem Art (right) using the 10:01:18 Percutaneous technique. A SHEATH, FR6.5 PRELUDE 11CM FR 6.5 was exchanged in the Fem Art (right). This was necessary in order to 10:01:23 accomodate a larger catheter. 10:01:27 A SHEATH, FR6.5 PRELUDE 11CM FR 6.5 was advanced into the Fem Vein (right) using the Percut aneous technique. 1000 mL (Bolus) IV Bolus given in lab by Jackie Ring BSRN in Left Wrist via Peripheral IV . Using D5W .45 NaCl. 10:03:13 Ordered by Emeka Judd. 10:03:35 An injection in the Fem Art (right) was made through the SHEATH, FR6.5 PRELUDE 11CM FR 6.5. 10:04:02 NIBP STAT measurement started. 10:04:30 HR=66 bpm, NIBP=85/51 mmhg, SpO2=97.0 %, Resp=16 B/min, Pain=0, Kuldip=10, Tang=2 10:05:28 HR=73 bpm, NIBP=96/64 mmhg, SpO2=96.0 %, Resp=16 B/min 10:05:58 R. [place] occluded. 10:06:19 Sheath removed; pressure applied to access site. 10:08:49 1 mg VERSED given in lab by Chen Bowling, FELIZ in Left Wrist via Peripheral IV. Ordered by Emeka Judd. 10:09:02 25 mcg FENTANYL given in lab by Chen Bowling, FELIZ in Left Wrist via Peripheral IV. Ordere d by Emeka Judd. 10:10:14 Prepping R. Radial for access. 10:10:57 HR=71 bpm, BTFU=839/66 mmhg, SpO2=94.0 %, Resp=11 B/min, Pain=0, Kuldip=10, Tang=2 10:12:32 3 mL 1% XYLOCAINE given in lab by Emeka Judd in Right Radial via Subcutaneous. 10:15:26 HR=73 bpm, BBXF=941/70 mmhg, SpO2=96.0 %, Resp=15 B/min, Pain=0, Kuldip=10, Tang=2 10:15:56 Access site was Right Radial Artery. A SHEATH, FR6 RADIAL PRELUDE EASE 11CM FR 6 was advanced into the Radial (right) using the Perc utaneous 10:16:07 technique. 10:18:00 5000 units HEPARIN given in lab by Jackie Ring BSRN in Left Wrist via Peripheral IV. Ordered by Emeka Judd. 10:18:34 A PACING CATHETER J CURVE FR 5 was inserted via Fem Vein (right) A JR 5.0 GUIDE CATHETER FR 6 was advanced over a wire. OMNIPAQUE, 350 MG, 150ML 150ML was used for 10:19:02 injections. 10:20:29 HR=78 bpm, IDFW=783/71 mmhg, SpO2=97.0 %, Resp=13 B/min, Pain=0, Kuldip=10, Tang=2 Recorded Pressure: Ao, HR=79, Condition=Condition 1 10:21:35 (Aorta) Ao 137/65/94 10:22:04 The RCA was injected and visualized at various angles. OMNIPAQUE, 350 MG, 150ML 150ML used . 10:23:02 A WIRE, RUNTHROUGH NS FLOPPY .014 300CM 300CM was inserted via Radial (right). A BALLOON, 1.25 X 6MM SPRINTER LEGEND OTW 6MM was inserted over WIRE, RUNTHROUGH NS FLOPPY .014 10:24:06 300CM 300CM via the RCA Prox. 10:25:30 HR=78 bpm, QCZM=719/74 mmhg, SpO2=97.0 %, Resp=20 B/min, Pain=0, Kuldip=10, Tang=2 10:26:09 Wire removed 10:26:11 A WIRE, VIPER ADVANCE CORONARY was inserted via Radial (right). 10:27:41 Balloon Removed. 10:29:53 Activated Clotting Time Drawn 10:30:31 HR=77 bpm, XCGF=738/75 mmhg, SpO2=97.0 %, Resp=14 B/min, Pain=0, Kuldip=10, Tang=2 10:32:02 CSI 1.25mm CORONARY CLASSIC ATHERECTOMY CATHETER INSERTED via R. Radial. 10:34:08 ACT (Normal Range 90-180) = 217 10:34:18 2000 units HEPARIN given in lab by Jackie Ring BSRN in Left Wrist via Peripheral IV. Ordered by Emeka Judd. 10:35:30 HR=79 bpm, LUUW=349/81 mmhg, SpO2=97.0 %, Resp=18 B/min, Pain=0, Kuldip=10, Tang=2 10:35:46 Atherectomy in progress of P. RCA, low mode, 20 Seconds. 10:36:42 Atherectomy in progress of P. RCA, low mode, 20 Seconds. 10:37:28 Atherectomy in progress of P. RCA, low mode, 20 Seconds. 10:38:35 Catheter was removed 10:39:52 A BALLOON, 2.5 X 15MM EUPHORA 15MM was inserted over WIRE, VIPER ADVANCE CORONARY via the R CA Prox. 10:40:31 HR=82 bpm, PQAX=476/82 mmhg, SpO2=97.0 %, Resp=19 B/min A BALLOON, 2.5 X 15MM EUPHORA 15MM over a WIRE, VIPER ADVANCE CORONARY in the RCA Prox was infl ated 10:40:40 using a 30 CA INDEFLATOR at 6 ca for 10 sec. A BALLOON, 2.5 X 15MM EUPHORA 15MM over a WIRE, VIPER ADVANCE CORONARY in the RCA Prox was infl ated 10:41:04 using a 30 CA INDEFLATOR at 6 ca for 10 sec. A BALLOON, 2.5 X 15MM EUPHORA 15MM over a WIRE, VIPER ADVANCE CORONARY in the RCA Prox was infl ated 10:43:04 using a 30 CA INDEFLATOR at 6 ca for 10 sec. A BALLOON, 2.5 X 15MM EUPHORA 15MM over a WIRE, VIPER ADVANCE CORONARY in the RCA Prox was infl ated 10:43:16 using a 30 CA INDEFLATOR at 8 ca for 6 sec. A BALLOON, 2.5 X 15MM EUPHORA 15MM over a WIRE, VIPER ADVANCE CORONARY in the RCA Prox was infl ated 10:43:27 using a 30 CA INDEFLATOR at 8 ca for 8 sec. A BALLOON, 2.5 X 15MM EUPHORA 15MM over a WIRE, VIPER ADVANCE CORONARY in the RCA Prox was infl ated 10:44:00 using a 30 CA INDEFLATOR at 8 ca for 8 sec. 10:45:01 Balloon Removed. 10:45:30 HR=82 bpm, WHTE=626/73 mmhg, SpO2=95.0 %, Resp=12 B/min, Pain=0, Kuldip=10, Tang=2 An STENT, 2.5 26 INTEGRITY 2.5 26 Bare Metal Stent was inserted through a JR 5.0 GUIDE CATHETER FR 6 over a 10:45:51 WIRE, VIPER ADVANCE CORONARY. A STENT, 2.5 26 INTEGRITY 2.5 26 was deployed using a 30 CA INDEFLATOR at 13 atmospheres for 1 0 seconds in 10:46:15 the RCA Prox. 10:47:07 Re-inflated the stent balloon in the RCA Prox to 10 CA for 8 seconds. 10:47:13 Delivery device removed An STENT, 2.5 26 INTEGRITY 2.5 26 Bare Metal Stent was inserted through a JR 5.0 GUIDE CATHETER FR 6 over a 10:47:15 WIRE, VIPER ADVANCE CORONARY. 10:49:39 1 mg VERSED given in lab by Chen Bowling RN in Left Wrist via Peripheral IV. Ordered by Emeka Judd. A STENT, 2.5 26 INTEGRITY 2.5 26 was deployed using a 30 CA INDEFLATOR at 16 atmospheres for 5 seconds in the 10:49:49 RCA Prox. 10:50:02 25 mcg FENTANYL given in lab by Chen Bowling RN in Left Wrist via Peripheral IV. Ordere d by Emeka Judd. 10:50:17 Delivery device removed 10:50:27 HR=71 bpm, YDHS=494/121 mmhg, SpO2=97.0 %, Resp=11 B/min, Pain=0, Kuldip=10, Tang=2 10:52:21 Wire removed 10:52:25 The RCA was injected and visualized at various angles. OMNIPAQUE, 350 MG, 150ML 150ML used . 10:53:05 Catheter was removed 10:54:29 Activated Clotting Time Drawn 10:55:34 HR=86 bpm, SIIM=996/84 mmhg, SpO2=96.0 %, Resp=15 B/min, Pain=0, Kuldip=10, Tang=2 10:55:51 MYNX SPANISH INSTRUCTOR CLOSURE DEVICE TAVR FR 5 placement in the Fem Vein (right) 10:57:25 Case End Assessment: Initial Case, HR=83 BPM, Rhythm=nsr, RUNB=262/84 mmhg, Chest Pain=0, Edema=None, Co dashawn=Normal, Skin = Warm, Dry Right Pulses: Post Tib=d, Femoral=1 10:57:29 Left Pulses: Post Tib=d, Femoral=1 Neurological: State=Alert, Ox3, HAMMONDS Respiration: Resp=15 B/min, SpO2=96 % 10:57:38 Catheter(s) removed without difficulty 10:57:42 Sterile dressing applied to site 10:57:43 No case complications noted. 10:57:43 Cine recording checked. 10:57:46 Bedside Report will be given. 10:57:50 Implantable Device card placed in patient's chart. 10:57:52 Contrast Scanned 10:57:54 Verbal Stimulation=2 Physical Stimulation=2 Airway=2 Respiration=2 TOTAL=8. (0=absent, 1=li mited, 2=present) 10:58:01 A Left Heart Cath was performed. 11:00:35 HR=86 bpm, XVOA=462/81 mmhg, SpO2=97.0 %, Resp=14 B/min, Pain=0, Kuldip=10, Tang=2 11:00:39 ACT (Normal Range 90-180) = 203 11:05:32 HR=82 bpm, DPKQ=566/92 mmhg, SpO2=95 %, Resp=17 B/min, Pain=0, Kuldip=10, Tang=2 Radial Compression Device Used. 14 mLs of air placed in BAND, RADIAL COMPRESSION TR SHORT 24 2 4CM. Affected 11:09:51 hand 96 % O2 saturation. 11:11:43 Vitals capture stopped. 11:13:[facility] - Cont[facility] Media Used In Study Contrast Total Opened (mL) Total Used (mL) Total Wasted (mL) Omnipaque 100 100 0 End Study - Maximum Contrast Load Max Contrast Load (mL) 334.6 End Study - Radiation Exposure Fluoro Time (minutes) 11.0 End Study - Patient Disposition Complications Transferred To Interventional Outcome No Critical Care Bed successful
--- NOTE | 2017-07-24 11:40 | MA ---
cc: SUMI HUYNH DATE: 07/22/2017 PROCEDURE PERFORMED 1. Fluoroscopy with interpretation. 2. Coronary angiography. 3. Orbital rotational atherectomy with CSI catheter of the right coronary artery. 4. Temporary transvenous pacemaker placement. 5. Percutaneous intervention with bare metal stents to the right coronary artery. 6. Right lower extremity peripheral angiography with first order visualization. METHOD The risks, benefits and alternatives were discussed with the patient. The patient understood and consented to the procedure. The patient was brought into the catheterization lab and placed on the catheterization table. The right wrist was prepped and draped in a sterile fashion. The right groin was prepped and draped in a sterile fashion. The right groin was anesthetized with 2% lidocaine. The right femoral vein was accessed and a 6 [place] sheath was placed without difficulty. Access was obtained with a micropuncture sheath in the right common femoral artery. 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 A right femoral approach was aborted. Right radial access was obtained and a 6 [place], 7 cm sheath was placed without difficulty. Heparin was administered throughout the entire procedure to maintain appropriate anticoagulation. TEMPORARY TRANSVENOUS PACEMAKER PLACEMENT A 5 [place] balloon-tip temporary transvenous pacemaker was advanced to the right ventricular apex. Appropriate sensing and capture was confirmed. Backup rate of 50 beats per minute was set and utilized during percutaneous intervention. CORONARY ANGIOGRAPHY Right coronary artery: There is heavy calcific disease in the proximal to mid segment of the right coronary artery. The distal segment has mild to moderate diffuse disease. Posterolateral and posterior branches are patent. PERCUTANEOUS INTERVENTION A 0.014 inch, 300 cm Terumo Runthrough wire was navigated down the distal posterolateral branch. A 1.25 mm over the balloon wire was then advanced down to the distal posterolateral branch. The Terumo wire was removed. A 335 cm, 0.014 inch Viper wire was then navigated down the distal posterolateral branch and the balloon removed. A 1.25 mm coronary CSI atherectomy catheter was then prepped and advanced to the right coronary artery. Four sequential passes were performed in the proximal to mid segment of the right coronary at 80,000, 80,000 and 100,000 revolutions per minute. Repeat angiography showed SWAPNA-I flow with ST-elevation. We quickly advanced a 2.5 x 20 mm balloon down to the midsegment and deployed on three sequential inflations to the mid to proximal segment of the right coronary artery. Repeat angiography showed orthodoxy of SWAPNA-III flow with still severe residual stenosis. A 2.5 x 26 mm RX Integrity bare metal stent was advanced down the mid right coronary artery and deployed. A second 2.5 x 26 mm RX Integrity bare metal stent was advanced down to the proximal right coronary artery with minimal stent overlap and deployed. Repeat angiography showed SWAPNA-III flow, no residual stenosis. The wire was removed. The guide catheter was removed. A HemoBand was applied. A Mynx catheter was then deployed in the right femoral vein with good hemostasis. The temporary transvenous pacemaker was removed. CONCLUSIONS 1. Severe right coronary stenosis. 2. Successful orbital rotational atherectomy and stenting with bare metal stents to the right coronary artery. 3. Successful utilization and removal of temporary transvenous pacemaker placement. PLAN The patient will be monitored closely for any post procedural complications. Will continue aggressive medical therapy in addition to aspirin, Plavix, statin, beta jonathan therapy and long-acting nitrate. MD ASHANTI Barrow/ADIN /11:08 AM /11:16 AM
[2017-07-24] MEDS ORDERED: SODIUM CHLORID 0.9% 500 ML INJ 1,500 ML ONE (11:47)
--- NOTE | 2017-07-24 17:56 | HHI.PR ---
Subjective Remarks No acute setbacks overnight per nursing. Objective Vital Signs Date Time Temp Pulse Resp B/P (MAP) Pulse Ox O2 Delivery O2 Flow Rate FiO2 07/24/17 17:25 91 07/24/17 16:48 90 07/24/17 16:48 92 18 134/66 (88) 98 07/24/17 15:48 93 18 131/72 (91) 97 07/24/17 15:47 80 07/24/17 15:41 97.7 93 18 131/72 (91) 97 07/24/17 14:32 97 18 113/59 (77) 98 07/24/17 14:28 92 07/24/17 13:45 89 18 110/66 (81) 93 07/24/17 13:25 97 07/24/17 13:15 89 18 122/69 (86) 93 07/24/17 12:30 89 18 141/78 (99) 97 07/24/17 12:03 99 07/24/17 12:00 85 18 142/78 (99) 97 07/24/17 11:40 87 18 144/77 (99) 95 07/24/17 11:26 85 18 144/84 (104) 96 07/24/17 08:28 98.5 92 18 132/90 (104) 96 07/24/17 08:00 98 07/24/17 07:00 90 07/24/17 06:01 79 07/24/17 05:59 98.0 80 16 140/76 (97) 94 07/24/17 05:08 81 07/24/17 04:07 89 07/24/17 03:24 80 07/24/17 02:35 89 07/24/17 01:00 81 07/24/17 00:43 79 07/23/17 23:00 95 07/23/17 23:00 97.2 85 16 142/52 (82) 96 07/23/17 21:51 76 07/23/17 21:45 98 21 07/23/17 20:00 80 07/23/17 19:00 98.0 81 16 137/69 (91) 98 07/23/17 19:00 84 07/23/17 18:22 88 I/O 07/23/17 07/23/17 07/23/17 07/24/17 07/24/1717 07:00 15:00 23:00 07:00 15:00 23:00 Intake Total 240 ml 210 ml 240 ml 1320 ml Output Total 325 ml 425 ml 400 ml 650 ml Balance -85 ml -215 ml -160 ml 670 ml Intake Oral 240 ml 210 ml 240 ml 720 ml IV Total 600 ml Output Urine Total 325 ml 425 ml 400 ml 650 ml # Bowel Movements 0 0 Result Diagram: 07/23/17 0515 07/23/1715 Objective Remarks lying in bed, sleeping, easily awoken Unlabored breathing Heart rate regular rhythm, no murmurs, Refill less than 2 seconds in hands A/P Assessment and Plan 82-year-old male with a past medical history of CAD, ischemic cardiomyopathy, COPD who presented for shortness of breath and diaphoresis Chest Pain/Shortness of breath/Diaphoresis: patient presented concerned he was having a heart attack, with history of ischemic cardiomyopathy, concern for ACS. Does not appear to be in COPD or CHF exacerbation clinically. Reviewed: EKG with sinus tachycardia, no specific ischemic changes. Initial troponin 0.02. BNP 162. CXR clear. Pulmonary angiogram with abnormal lung nodule, no PE. -Unstable angina per cards. -Continue Plavix, statin, Imdur, aspirin, BB -Lipid panel with elevated LDL 111, will increase Lipitor to 40mg hs -Nuclear stress test showed moderate size severe lateral/inferolateral and apical perfusion abnormality with moderate redistribution. -Not a good surgical candidate per cardiothoracic surgery, now s/p PCI, doing well History of ischemic cardiomyopathy: Previous catheterization from 2012 showed EF 25%. -Echocardiogram showed EF 25-30%. -lisinopril and lasix on hold for HOMERO -metoprolol Lung mass:This was documented last year and the patient was told to follow-up outpatient. Apparently he did not. Patient was informed again of the findings. -Strongly encourage outpatient follow-up Diabetes mellitus: -Held home metformin -Monitor Accu-Cheks and cover with SSI needed CKD stage III: Creatinine 1.54, previously 1.52 on 06/05/16. -Monitor, slightly worse, Cr stabilizing COPD: chronic Acute Encephalopathy: resolved Lenin Spear MD Jul 24, 2017 17:56
[2017-07-24] MEDS: ATORVASTATIN 40 MG TAB PO SCH (21:44)
[2017-07-25] VITALS (14 sets, daily range): BP systolic 146–155; BP diastolic 67–82; PULSE 48–104; RESP 18–20; TEMP 97.8–98.1; O2SAT 95–96
[2017-07-25 05:22] LABS: BASOPHIL # 0.1 TH/MM3 (0-0.2); BASOPHIL % 0.7 % (0.0-2.0); EOSINOPHIL # 0.4 TH/MM3 (0-0.4); EOSINOPHIL % 4.4 % (0.0-4.0); HEMATOCRIT 45.4 % (39.0-51.0); HEMO FLAGS DIFF FINAL; LYMPH % 18.6 % (9.0-44.0); LYMPHOCYTE # 1.7 TH/MM3 (1.0-4.8); MEAN CELL VOLUME 95.3 FL (80.0-100.0); MEAN CORPUSCULAR HEMOGLOBIN 32.1 PG (27.0-34.0); MEAN CORPUSCULAR HGB CONC 33.7 % (32.0-36.0); MONO % 12.2 % (0.0-8.0); NEUT % 64.1 % (16.0-70.0); PLATELET COUNT 337 TH/MM3 (150-450); RED BLOOD COUNT 4.77 MIL/MM3 (4.50-5.90); RED CELL DISTRIBUTION WIDTH 15.1 % (11.6-17.2); WHITE BLOOD COUNT 9.3 TH/MM3 (4.0-11.0)
[2017-07-25 05:45] LABS: BICARBONATE 23.4 MEQ/L (21.0-32.0)
[2017-07-25] MEDS: INSULIN ASPART SUPPLEMENTAL SCALE SQ SCH ×2 (07:19→12:00)
--- NOTE | 2017-07-25 08:17 | EKG ---
Date Performed: 07/25/2017 Time Performed: 05:42:06 PTAGE: 82 years EKG: Sinus rhythm with bigeminal PACs Left axis deviation Possible anterior infarct - age undetermined Abnormal ECG PREVIOUS TRACING : 07/21/2017 15.13 Compared to previous tracing, PACs are now present. DOCTOR: Collins Bill Interpretating Date/Time 07/25/2017 08:15:25
[2017-07-25] MEDS: CLOPIDOGREL 75 MG TAB PO SCH (08:39)
[2017-07-25] MEDS: ISOSORBIDE MONONITRATE 60 MG TAB PO SCH (08:39)
[2017-07-25] MEDS: METOPROLOL TARTRATE 25 MG TAB PO SCH (08:40)
[2017-07-25] MEDS: SODIUM CHLORIDE 0.9% FLUSH 10 ML FLUSH IV FLUSH SCH (08:40)
[2017-07-25] MEDS: ASPIRIN 81 MG CHEW TAB PO SCH (08:40)
[2017-07-25 08:52] LABS: P2Y12 REACTION UNITS (PRU) 43 PRU (194-418)
[2017-07-25] MEDS ORDERED: LISINOPRIL 5 MG TAB PO SCH (09:00)
--- NOTE | 2017-07-25 10:24 | PD.CARD.PN ---
Subjective Subjective Remarks Pt feels well, no chest pain, wants to go home Objective Medications Administered Medications Medications (Trade) Dose Ordered Sig/Maury Route PRN Reason Start Time Stop Time Status Last Admin Dose Admin Sodium Chloride (NS Flush) 2 ml BID IV FLUSH 07/20/17 09:00 07/25/17 08:40 Insulin Aspart (NovoLOG SUPPLEMENTAL SCALE) 1 ACHS SLIDING SCALE SQ 07/20/17 08:00 07/24/17 17:00 Isosorbide Mononitrate (Imdur) 60 mg DAILY PO 07/20/17 09:00 07/25/17 08:39 Metoprolol Tartrate (Lopressor) 12.5 mg BID PO 07/20/17 21:00 07/25/17 08:40 Atorvastatin Calcium (Lipitor) 40 mg HS PO 07/22/17 21:00 07/24/17 21:44 Aspirin (Aspirin Chew) 81 mg DAILY PO 07/24/17 09:00 07/25/17 08:40 Clopidogrel Bisulfate (Plavix) 75 mg DAILY PO 07/24/17 09:00 07/25/17 08:39 Lisinopril (Prinivil) 5 mg DAILY PO 07/25/17 09:00 07/25/17 08:40 Vital Signs / I&O Vital Signs Date Time Temp Pulse Resp B/P (MAP) Pulse Ox O2 Delivery O2 Flow Rate FiO2 07/25/17 08:00 93 07/25/17 08:00 97.8 48 20 148/67 (94) 96 07/25/17 06:00 90 07/25/17 05:00 88 07/25/17 04:00 82 07/25/17 03:00 98.1 84 18 146/81 (102) 95 07/25/17 03:00 96 07/25/17 02:00 90 07/25/17 01:00 88 07/25/17 00:00 89 07/24/17 23:00 98.9 91 18 138/85 (102) 97 07/24/17 22:00 98 07/24/17 21:00 88 07/24/17 20:00 94 07/24/17 19:54 95 07/24/17 19:00 98.4 109 20 160/72 (101) 97 07/24/17 19:00 107 07/24/17 18:06 92 07/24/17 17:25 91 07/24/17 16:48 90 07/24/17 16:48 92 18 134/66 (88) 98 07/24/17 15:48 93 18 131/72 (91) 97 07/24/17 15:47 80 07/24/17 15:41 97.7 93 18 131/72 (91) 97 07/24/17 14:32 97 18 113/59 (77) 98 07/24/17 14:28 92 07/24/17 13:45 89 18 110/66 (81) 93 07/24/17 13:25 97 07/24/17 13:15 89 18 122/69 (86) 93 07/24/17 12:30 89 18 141/78 (99) 97 07/24/17 12:03 99 07/24/17 12:00 85 18 142/78 (99) 97 07/24/17 11:40 87 18 144/77 (99) 95 07/24/17 11:26 85 18 144/84 (104) 96 I/O 07/24/17 07/24/17 07/24/17 07/25/17 07/25/17 07/25/17 07:00 15:00 23:00 07:00 15:00 23:00 Intake Total 240 ml 1320 ml 240 ml Output Total 400 ml 650 ml 350 ml Balance -160 ml 670 ml -110 ml Intake Oral 240 ml 720 ml 240 ml IV Total 600 ml Output Urine Total 400 ml 650 ml 350 ml # Voids 1 # Bowel Movements 0 0 Physical Exam GENERAL: This is a well-nourished, well-developed patient, in no apparent distress. CARDIOVASCULAR: Regular rate and rhythm without murmurs, gallops, or rubs. RESPIRATORY: Clear to auscultation. Breath sounds equal bilaterally. No wheezes , rales, or rhonchi. GASTROINTESTINAL: Abdomen soft, non-tender, nondistended. Normal active bowel sounds MUSCULOSKELETAL: Extremities without clubbing, cyanosis, or edema. NEURO: Alert & Oriented x4 to person, place, time, situation. Moves all ext x4 Laboratory Laboratory Tests Test 07/25/17 04:33 07/25/17 08:24 White Blood Count 9.3 TH/MM3 Red Blood Count 4.77 MIL/MM3 Hemoglobin 15.3 GM/DL Hematocrit 45.4 % Mean Corpuscular Volume 95.3 FL Mean Corpuscular Hemoglobin 32.1 PG Mean Corpuscular Hemoglobin Concent 33.7 % Red Cell Distribution Width 15.1 % Platelet Count 337 TH/MM3 Mean Platelet Volume 8.5 FL Neutrophils (%) (Auto) 64.1 % Lymphocytes (%) (Auto) 18.6 % Monocytes (%) (Auto) 12.2 % Eosinophils (%) (Auto) 4.4 % Basophils (%) (Auto) 0.7 % Neutrophils # (Auto) 6.0 TH/MM3 Lymphocytes # (Auto) 1.7 TH/MM3 Monocytes # (Auto) 1.1 TH/MM3 Eosinophils # (Auto) 0.4 TH/MM3 Basophils # (Auto) 0.1 TH/MM3 CBC Comment DIFF FINAL Differential Comment Blood Urea Nitrogen 19 MG/DL Creatinine 1.30 MG/DL Random Glucose 114 MG/DL Calcium Level 8.4 MG/DL Sodium Level 143 MEQ/L Potassium Level 4.0 MEQ/L Chloride Level 111 MEQ/L Carbon Dioxide Level 23.4 MEQ/L Anion Gap 9 MEQ/L Estimat Glomerular Filtration Rate 53 ML/MIN Total Creatine Kinase 81 U/L Triglycerides Level 78 MG/DL Cholesterol Level 124 MG/DL LDL Cholesterol 71 MG/DL HDL Cholesterol 37.0 MG/DL Cholesterol/HDL Ratio 3.35 RATIO Platelet Function P2Y12 React Units 43 PRU Imaging Last Impressions Lower Extremity Ultrasound 07/22/17 0000 Signed Impressions: Service Date/Time: Saturday, July 22, 2017 18:53 - CONCLUSION: Lower extremity greater saphenous vein mapping as above. Daniele Rai MD Carotid Artery Ultrasound 07/22/17 0000 Signed Impressions: Service Date/Time: Saturday, July 22, 2017 19:14 - CONCLUSION: 1. Bilateral carotid bifurcation atherosclerosis. 2. Suspected occlusion proximally of the right internal carotid artery. 3. Borderline hemodynamically significant stenosis of the proximal left internal carotid artery. Daniele Rai MD Myocardial Perfusion Scan Nuc Med 07/21/17 0000 Signed Impressions: Service Date/Time: Friday, July 21, 2017 10:50 - CONCLUSION: Moderate size severe lateral/inferolateral and apical perfusion abnormality with moderate redistribution. RISK CATEGORY: High (>3%% Annual Mortality Rate) Daniele Omalley MD CT Angiography 07/20/17 0147 Signed Impressions: Service Date/Time: Thursday, July 20, 2017 02:18 - CONCLUSION: 1. 8mm nodule superior segment left lower lobe with some spiculation. Finding new since 2014. Primary consideration is small bronchogenic carcinoma. This could be worked up as an outpatient initially with PET/CT. Percutaneous biopsy cardi difficult due to small size and location under left posterior rib. 2. Negative for pulmonary embolus. Ulisses Robledo MD Chest X-Ray 07/19/17 [id number] Signed Impressions: Service Date/Time: Wednesday, July 19, 2017 23:58 - CONCLUSION: 1. No acute findings. Ulisses Robledo MD Assessment and Plan Problem List: (1) Ischemic cardiomyopathy ICD Codes: I25.5 - Ischemic cardiomyopathy Status: Chronic (2) CAD, multiple vessel ICD Codes: I25.10 - Atherosclerotic heart disease of [place] coronary artery without angina pectoris Plan: s/p PCI by Dr. Jdud, continue current medical therapy Assessment and Plan Ok to d/c home from cardiac standpoint. Jerrell Galicia MD Jul 25, 2017 10:24
--- NOTE | 2017-07-25 12:31 | HHI.FF ---
Face to Face Verification Diagnosis: (1) Debility (2) Unsteady gait (3) COPD (chronic obstructive pulmonary disease) Physical Therapy Order: Evaluate and Treat Occupational Therapy Order: Evaluate and Treat Home Health Nursing Order: Nursing assessment with vital signs I have seen patient Jeronimo Fong on 07/25/17. My clinical findings support the need for the requested home health care services because: Ltd mobility - disease progression High risk of falls I certify that my clinical findings support that this patient is homebound because: Unsteady gait/balance Lenin Spear MD Jul 25, 2017 12:31
[2017-07-25] MEDS ORDERED: PLAV75TA29 PO (12:34)
[2017-07-25] MEDS ORDERED: METO25TA3 PO (12:34)
[2017-07-25] MEDS ORDERED: ATOR40TA16 PO (12:34)
--- NOTE | 2017-07-25 12:34 | HHI.DCPOC ---
Discharge Care Plan Diagnosis: (1) Unstable angina pectoris due to coronary arteriosclerosis Your Health Problems Are: Chest Pain Goals to Promote Your Health * To prevent worsening of your condition and complications * To maintain your health at the optimal level Directions to Meet Your Goals Take your medications as prescribed Follow your dietary instruction Follow activity as directed Keep your appointments as scheduled Take your immunizations and boosters as scheduled If your symptoms worsen call your PCP, if no PCP go to Urgent Care Center or Emergency Room Smoking is Dangerous to Your Health. Avoid second hand smoke Call the 24-hour hour crisis hotline for domestic abuse at Lenin Spear MD Jul 25, 2017 12:34
[2017-07-25] MEDS ORDERED: ASPI81CH25 PO (12:37)
--- NOTE | 2017-07-25 12:37 | HHI.DS ---
Discharge Summary Admission Date Jul 22, 2017 at 13:08 Discharge Date: Jul 25, 2017 Admitting Diagnosis COPD exacerbation, bronchitis (1) Shortness of breath ICD Code: R06.02 - Shortness of breath Status: Resolved (2) COPD (chronic obstructive pulmonary disease) ICD Code: J44.9 - Chronic obstructive pulmonary disease, unspecified Status: Chronic (3) Unstable angina pectoris due to coronary arteriosclerosis ICD Code: I25.110 - Atherosclerotic heart disease of [place] coronary artery with unstable angina pectoris Status: Resolved Procedures PCI RCA Brief History - From Admission 82-year-old male with a medical history significant for COPD, coronary artery disease, hypertension who presented to the emergency room via EMS due to concern that he was having a heart attack. The patient is a very poor historian. He reports after eating some eggs earlier, he had a sudden onset of nausea and was not able to breathe right. He has had occasional cough. He denies any chest pain. No vomiting. On my evaluation in the emergency room, the patient reports he is feeling back to his baseline. CBC/BMP: 07/25/17 0433 07/25/17 0433 Significant Findings Laboratory Tests Test 07/22/17 16:30 07/22/17 17:18 07/23/17 05:15 07/25/17 04:33 Hemoglobin A1c 6.9 % (4.3-6.0) Monocytes (%) (Auto) 12.4 % (0.0-8.0) 12.2 % (0.0-8.0) Monocytes # (Auto) 1.1 TH/MM3 (0-0.9) 1.1 TH/MM3 (0-0.9) Blood Urea Nitrogen 27 MG/DL (7-18) 19 MG/DL (7-18) Random Glucose 113 MG/DL (74-106) 114 MG/DL (74-106) Calcium Level 8.4 MG/DL (8.5-10.1) 8.4 MG/DL (8.5-10.1) Chloride Level 108 MEQ/L (98-107) 111 MEQ/L (98-107) Estimat Glomerular Filtration Rate 54 ML/MIN (>89) 53 ML/MIN (>89) Eosinophils (%) (Auto) 4.4 % (0.0-4.0) HDL Cholesterol 37.0 MG/DL (40.0-60.0) Test 07/25/17 08:24 Platelet Function P2Y12 React Units 43 PRU (194-418) PE at Discharge heart sounds : rrr, no murmurs lungs : coarse BS BL, unlabored breathing, good air movement otherwise Hospital Course Patient was admitted, cardiology and cardiothoracic surgery consulted. Patient was deemed too high of a risk for suitable candidacy for CABG. Therefore cardiology performed successful PCI RCA BMS. Patient's chest pain and shortness of breath had resolved. Patient's chest pain or shortness of breath had resolved. He was informed about his lung nodule as well during his inpatient stay and was reinforced to have this followed up with his regular doctor. Physical therapy did recommend home health with PT, and the patient did affirm that he was receiving this prior to admission as well. Patient was able to ambulate well back and forth in the bathroom to his bed without any assisted devices, but does get considerably winded with any prolonged ambulation otherwise. Patient has met maximal benefit from hospitalization and is clinically stable for discharge. Pt Condition on Discharge: Stable Discharge Disposition: Disch w/ Home Health Serv Discharge Time: > 30 minutes Discharge Instructions DIET: Follow Instructions for: Heart Healthy Diet Activities you can perform: Weight Bearing as Rogerio Follow up Referrals: Cardiology - 2 Weeks with Minor,Emeka Cortez MD PCP Follow-up - 1 Week New Medications: Aspirin (Aspirin Low Strength) 81 Mg Chew 81 MG PO DAILY for Blood Clot Prevention, #30 EA Atorvastatin (Atorvastatin) 40 Mg Tab 40 MG PO HS for cholesterol, #30 TAB Metoprolol Tartrate (Metoprolol Tartrate) 25 Mg Tab 12.5 MG PO BID for Blood Pressure Management, #60 TAB Continued Medications: Amlodipine (Amlodipine) 5 Mg Tab 5 MG PO DAILY for Blood Pressure Management, #30 TAB 0 Refills Cholecalciferol (Vitamin D3) 1,000 Unit Cap 1000 UNITS PO DAILY for Nutritional Supplement, #1 BOTTLE 0 Refills Clopidogrel (Plavix) 75 Mg Tab 75 MG PO DAILY for Blood Clot Prevention, #30 TAB 0 Refills (This prescription has been renewed) Furosemide (Furosemide) 20 Mg Tab 20 MG PO DIRECTED, #30 TAB 0 Refills Isosorbide Mononitrate ER (Isosorbide Mononitrate ER) 60 Mg Tab 60 MG PO DAILY for Prevent Chest Pain, #30 TAB 0 Refills Lisinopril (Lisinopril) 5 Mg Tab 5 MG PO DAILY for Blood Pressure Management, #30 TAB 0 Refills Metformin (Metformin) 1,000 Mg Tab 1000 MG PO DAILY for Blood Sugar Management, #30 TAB 0 Refills With a meal Discontinued Medications: Atorvastatin (Lipitor) 10 Mg Tab 10 MG PO HS for Cholesterol Management, #30 TAB 0 Refills Lenin Spear MD Jul 25, 2017 12:36
== END 2017-07-25 14:14 | disposition home health service (06) | DRG 248 ==
LOC: NEPE 23:31 → INTOOBSV 07-20 01:52 → NEDA 07-20 01:52 → NEPHCDU 07-20 04:08 → HCIS 07-22 11:10 → OBSVTOIN 07-22 13:08 → HCPC 07-22 15:30 → HCIS 07-23 18:06
PROVIDERS: ADMIT Hospitalist; ATTEND Hospitalist
PROC: 4A023N7 Measurement of Cardiac Sampling and Pressure, Left Heart, Percutaneous Approach (ICD-10-PCS; 2017-07-22)
PROC: B2111ZZ Fluoroscopy of Multiple Coronary Arteries using Low Osmolar Contrast (ICD-10-PCS; 2017-07-22)
PROC: 02703EZ Dilation of Coronary Artery, One Artery with Two Intraluminal Devices, Percutaneous Approach (ICD-10-PCS; 2017-07-24)
PROC: B2111ZZ Fluoroscopy of Multiple Coronary Arteries using Low Osmolar Contrast (ICD-10-PCS; 2017-07-24)
PROC: B41F1ZZ Fluoroscopy of Right Lower Extremity Arteries using Low Osmolar Contrast (ICD-10-PCS; 2017-07-24)
PROC: X2C0361 Extirpation of Matter from Coronary Artery, One Artery using Orbital Atherectomy Technology, Percutaneous Approach, New Technology Group 1 (ICD-10-PCS; principal; 2017-07-24 09:45)
DX: I25.110 Atherosclerotic heart disease of native coronary artery with unstable angina pectoris (principal); G92 Toxic encephalopathy; N17.9 Acute kidney failure, unspecified; I50.42 Chronic combined systolic (congestive) and diastolic (congestive) heart failure; J44.1 Chronic obstructive pulmonary disease with (acute) exacerbation; I13.0 Hypertensive heart and chronic kidney disease with heart failure and stage 1 through stage 4 chronic kidney disease, or unspecified chronic kidney disease; I42.0 Dilated cardiomyopathy; E11.22 Type 2 diabetes mellitus with diabetic chronic kidney disease; N18.3 Chronic kidney disease, stage 3 (moderate); E78.5 Hyperlipidemia, unspecified; I25.5 Ischemic cardiomyopathy; R91.1 Solitary pulmonary nodule; R00.0 Tachycardia, unspecified; E87.5 Hyperkalemia; I73.9 Peripheral vascular disease, unspecified; I77.1 Stricture of artery; I25.2 Old myocardial infarction; Y92.239 Unspecified place in hospital as the place of occurrence of the external cause; T38.0X5A Adverse effect of glucocorticoids and synthetic analogues, initial encounter; Z95.5 Presence of coronary angioplasty implant and graft; Z87.891 Personal history of nicotine dependence; Z79.84 Long term (current) use of oral hypoglycemic drugs; Z86.74 Personal history of sudden cardiac arrest
CPT/HCPCS: 33210; 71010; 71275; 78452; 80048; 80053; 80061; 81001; 82140; 82550; 82570; 82948; 83036; 83605; 83735; 83880; 84300; 84443; 84484; 85002; 85025; 85576; 85610; 85730; 87040; 87641; 92933; 93005; 93017; 93306; 93454; 93458; 93880; 93970; 93998; 94010; 94640; 94664; 96361; 96365; 96372; 96375; A9502; C1714; C1725; C1760; C1769; C1876; C1887; C1893; G0269; G0378; J1644; J1815; J1956; J2250; J2785; J2930; J3010; J7030; J7040; J7512; Q9967

== ENCOUNTER 2017-07-31 10:37 | Inpatient (IN) | payer OTHER, MEDICARE ==
[2017-07-31] VITALS (9 sets, daily range): BP systolic 147–173; BP diastolic 75–98; PULSE 78–120; RESP 17–24; TEMP 97.7–98.8; O2SAT 92–98
[~2017-07-31 10:37] MED LIST changes: +ASPI81CH25 PO; +ATOR40TA16 PO; -CEPH-460 PO; +FURO20TA PO; -HYDR-3533 PO; +ISOS60TA PO; -LEVA750T PO; -LIPI10TA PO; +METO25TA3 PO; -TRIMSOL LEFT EAR; +VITA100036 PO
[2017-07-31] MEDS ORDERED: SODIUM CHLORIDE 0.9% FLUSH 10 ML FLUSH IVF PRN (10:45)
[2017-07-31] MEDS ORDERED: ASPIRIN 81 MG CHEW TAB CHEW ONE (10:45)
[2017-07-31] MEDS ORDERED: HEPARIN SODIUM - IV 10,000 UNITS/10 ML VIAL ONE ×2 (10:48→11:38)
[2017-07-31 10:59] LABS: AUTOMATED NEUTROPHIL # 13.2 TH/MM3 (1.8-7.7); BASOPHIL # 0.1 TH/MM3 (0-0.2); BASOPHIL % 0.8 % (0.0-2.0); EOSINOPHIL # 0.3 TH/MM3 (0-0.4); EOSINOPHIL % 1.8 % (0.0-4.0); HEMATOCRIT 48.6 % (39.0-51.0); LYMPH % 13.5 % (9.0-44.0); LYMPHOCYTE # 2.2 TH/MM3 (1.0-4.8); MEAN CELL VOLUME 94.3 FL (80.0-100.0); MEAN CORPUSCULAR HEMOGLOBIN 31.7 PG (27.0-34.0); MEAN CORPUSCULAR HGB CONC 33.7 % (32.0-36.0); MONO % 3.8 % (0.0-8.0); NEUT % 80.1 % (16.0-70.0); PLATELET COUNT 361 TH/MM3 (150-450); RED BLOOD COUNT 5.16 MIL/MM3 (4.50-5.90); RED CELL DISTRIBUTION WIDTH 14.8 % (11.6-17.2); WHITE BLOOD COUNT 16.4 TH/MM3 (4.0-11.0)
[2017-07-31] MEDS ORDERED: HEPARIN SODIUM - IV 10,000 UNITS/10 ML VIAL IV ONE (11:00)
[2017-07-31] MEDS ORDERED: FUROSEMIDE 40 MG/4 ML VIAL IV PUSH ONE ×2 (11:00→18:00)
[2017-07-31] MEDS ORDERED: MORPHINE SULFATE 2 MG/ML INJ IV PUSH ONE (11:00)
--- NOTE | 2017-07-31 11:03 | RADRPT ---
EXAM DATE/TIME: 07/31/2017 10:54 [facility] COMPARISON: CHEST SINGLE AP, July 19, 2017, 23:58. INDICATIONS : MEDICAL HISTORY : Myocardial infarction. Hypercholesterolemia. Hypertension. COPD. Renal stones. Diabetic. SURGICAL HISTORY : Cardiac cath w/ stent placement. ENCOUNTER: Initial ACUITY: 1 day PAIN SCORE: 8/10 LOCATION: chest FINDINGS: No new focal pleural or clinical opacities are noted. Redemonstration of linear opacities at the left lung base. Cardiomediastinal contours are within normal limits. Bony thorax is intact. CONCLUSION: 1. Stable left lung base atelectasis. 2. No acute abnormality or significant interval change. Gage Langley MD on July 31, 2017 at 11:01 Board Certified Radiologist. This report was verified electronically.
[2017-07-31 11:06] LABS: HEMO FLAGS AUTO DIFF
[2017-07-31 11:10] LABS: POTASSIUM 4.4 MEQ/L (3.5-5.1)
[2017-07-31 11:13] LABS: BICARBONATE 20.1 MEQ/L (21.0-32.0); MAGNESIUM 2.2 MG/DL (1.5-2.5)
[2017-07-31 11:14] LABS: APTT (PATIENT) 29.3 SEC (24.3-30.1); INTERNATIONAL NORMALIZED RATIO 1.1 RATIO
--- NOTE | 2017-07-31 11:26 | PD ---
HPI Chief Complaint: STEMI Alert Time Seen by Provider: 10:44 Travel History International Travel<30 days: No Contact w/Intl Traveler<30days: No History of Present Illness HPI Patient is an 82-year-old male presents emergency Department with chest pain center of his chest for the past hour or so associated with dizziness and shortness of breath. The patient was recently admitted to the hospital for a COPD exacerbation. Records were reviewed after the transport of the patient and he did have a cardiac catheterization with severe right coronary disease. Patient on arrival had an EKG performed which showed an inferior LA and a STEMI alert was activated. Patient states he is on blood thinners but does not know what. States the pain is severe, heavy, radiates to his left shoulder. PFSH Past Medical History Hx Anticoagulant Therapy: Yes (PLAVIX) Asthma: No Blood Disorders: No Anxiety: No Depression: No Heart Rhythm Problems: No Cancer: No Cardiac Catheterization: Yes Cardiovascular Problems: Yes (LA) High Cholesterol: Yes Chemotherapy: No Chest Pain: No Congestive Heart Failure: No COPD: Yes Diabetes: Yes Diminished Hearing: No Endocrine: No Genitourinary: Yes (KIDNEY STONES) Hypertension: Yes Immune Disorder: No Kidney Stones: Yes Musculoskeletal: No Neurologic: No Psychiatric: No Reproductive: No Respiratory: Yes Myocardial Infarction: Yes Radiation Therapy: No Sleep Apnea: No Thyroid Disease: No Past Surgical History Abdominal Surgery: No Cardiac Surgery: Yes (HEART CATH) Coronary Stent: Yes Genitourinary Surgery: No Thoracic Surgery: No Other Surgery: Yes (stent placement) Social History Alcohol Use: No (reportedly quit drinking alcohol approximate 5 months ago) Tobacco Use: No (QUIT 2014) Substance Use: No Allergies-Medications (Allergen,Severity, Reaction): Coded Allergies: No Known Allergies (Unverified , 07/19/17) Reported Meds & Prescriptions Reported Meds & Active Scripts Active Aspirin Low Strength (Aspirin) 81 Mg Chew 81 Mg PO DAILY Metoprolol Tartrate 25 Mg Tab 12.5 Mg PO BID Atorvastatin (Atorvastatin Calcium) 40 Mg Tab 40 Mg PO HS Plavix (Clopidogrel Bisulfate) 75 Mg Tab 75 Mg PO DAILY Reported Vitamin D3 (Cholecalciferol) 1,000 Unit Cap 1,000 Units PO DAILY Isosorbide Mononitrate ER (Isosorbide Mononitrate) 60 Mg Tab 60 Mg PO DAILY Furosemide 20 Mg Tab 20 Mg PO DIRECTED Lisinopril 5 Mg Tab 5 Mg PO DAILY Amlodipine (Amlodipine Besylate) 5 Mg Tab 5 Mg PO DAILY Metformin (Metformin HCl) 1,000 Mg Tab 1,000 Mg PO DAILY With a meal Review of Systems Except as stated in HPI: all other systems reviewed are Neg Physical Exam Narrative GENERAL: Well-developed, elderly male, dusky appearance. SKIN: Cool and dusky. HEAD: Atraumatic. Normocephalic. EYES: Pupils equal and round. No scleral icterus. No injection or drainage. ENT: No nasal bleeding or discharge. Mucous membranes pink and moist. NECK: Trachea midline. No JVD. CARDIOVASCULAR: Mildly tachycardic with regular rhythm. No murmur appreciated. No MGR. 2+ bilateral equal pulses in all 4 extremity's. RESPIRATORY: No accessory muscle use. Bibasilar rales.. Breath sounds equal bilaterally. GASTROINTESTINAL: Abdomen soft, non-tender, nondistended. Hepatic and splenic margins not palpable. MUSCULOSKELETAL: No obvious deformities. No clubbing. No cyanosis. No edema. NEUROLOGICAL: Awake and alert. No obvious cranial nerve deficits. Motor grossly within normal limits. Normal speech. PSYCHIATRIC: Appropriate mood and affect; insight and judgment normal. Data Data Orders Orders Basic Metabolic Panel (Bmp) (07/31/17 10:44) Ckmb (Isoenzyme) Profile (07/31/17 10:44) Complete Blood Count With Diff (07/31/17 10:44) Magnesium (Mg) (07/31/17 10:44) Prothrombin Time / Inr (Pt) (07/31/17 10:44) Act Partial Throm Time (Ptt) (07/31/17 10:44) Troponin I (07/31/17 10:44) Chest, Single Ap (07/31/17 10:44) Ecg Monitoring (07/31/17 10:44) Bilateral Bp Monitoring (07/31/17 10:44) Iv Access Insert/Monitor (07/31/17 10:44) Oximetry (07/31/17 10:44) Oxygen Administration (07/31/17 10:44) Sodium Chloride 0.9% Flush (Ns Flush) (07/31/17 10:45) Aspirin Chew (Aspirin Chew) (07/31/17 10:45) Heparin Inj (Heparin Inj) (07/31/17 10:48) Furosemide Inj (Lasix Inj) (07/31/17 11:00) Morphine Inj (Morphine Inj) (07/31/17 11:00) Heparin Inj (Heparin Inj) (07/31/17 11:00) Cardiac Catheterization (07/31/17 ) Heparin-Ns/Pf Inj (Heparin-Ns/Pf Inj) (07/31/17 11:28) Admit Order (Ed Use Only) (07/31/17 ) Labs Laboratory Tests Test 07/31/17 10:48 White Blood Count 16.4 TH/MM3 Red Blood Count 5.16 MIL/MM3 Hemoglobin 16.4 GM/DL Hematocrit 48.6 % Mean Corpuscular Volume 94.3 FL Mean Corpuscular Hemoglobin 31.7 PG Mean Corpuscular Hemoglobin Concent 33.7 % Red Cell Distribution Width 14.8 % Platelet Count 361 TH/MM3 Mean Platelet Volume 8.5 FL Neutrophils (%) (Auto) 80.1 % Lymphocytes (%) (Auto) 13.5 % Monocytes (%) (Auto) 3.8 % Eosinophils (%) (Auto) 1.8 % Basophils (%) (Auto) 0.8 % Neutrophils # (Auto) 13.2 TH/MM3 Lymphocytes # (Auto) 2.2 TH/MM3 Monocytes # (Auto) 0.6 TH/MM3 Eosinophils # (Auto) 0.3 TH/MM3 Basophils # (Auto) 0.1 TH/MM3 CBC Comment AUTO DIFF Prothrombin Time 12.0 SEC Prothromb Time International Ratio 1.1 RATIO Activated Partial Thromboplast Time 29.3 SEC Blood Urea Nitrogen 27 MG/DL Creatinine 1.60 MG/DL Random Glucose 162 MG/DL Calcium Level 9.3 MG/DL Magnesium Level 2.2 MG/DL Sodium Level 137 MEQ/L Potassium Level 4.4 MEQ/L Chloride Level 104 MEQ/L Carbon Dioxide Level 20.1 MEQ/L Anion Gap 13 MEQ/L Estimat Glomerular Filtration Rate 42 ML/MIN Total Creatine Kinase 30 U/L Troponin I 0.03 NG/ML MDM Medical Decision Making Medical Screen Exam Complete: Yes Emergency Medical Condition: Yes Interpretation(s) Interpretation of his EKG on arrival shows significant ST segment elevation in II, III, and F aVF with reciprocal depression in the precordial leads. This is consistent with an acute inferior LA. Review from his previous EKGs shows this is an acute finding. Sinus rhythm. Differential Diagnosis STEMI, ACS, CHF, coronary artery disease, restenosis. Narrative Course Patient roomed emergency department, somewhat hypoxic was placed on 4 L nasal cannula, heparin 5000 units IV after chest x-ray revealed no acute cardiopulmonary abnormality. Aspirin 324. Morphine 2 mg IV. The patient was not given nitroglycerin given he is having an inferior LA. The patient was discussed with Dr. Robledo and transported emergently to the catheter lab at the [facility] from [place]. STEMI was called at 1040, Dr. Robledo called at 1043, return patient at 1046. He accepted the patient to labor operator at that time. Diagnosis Primary Impression: STEMI (ST elevation myocardial infarction) Qualified Codes: I21.3 - ST elevation (STEMI) myocardial infarction of unspecified site Admitting Information Admitting Physician Requests: Admit Condition: Serious Phu Jones MD Jul 31, 2017 11:26
[2017-07-31] MEDS ORDERED: HEPARIN-NS/PF INJ 500 ML ONE (11:28)
[2017-07-31] MEDS ORDERED: BIVALIRUDIN 250 MG VIAL ONE (11:33)
[2017-07-31] MEDS ORDERED: MIDAZOLAM HCL 2 MG/2 ML VIAL ONE (11:35)
[2017-07-31 11:38] LABS: SCAN/DIFF AUTO DIFF CONFIRMED
[2017-07-31] MEDS ORDERED: TICAGRELOR 90 MG TAB PO ONE ×2 (11:54→12:30)
--- NOTE | 2017-07-31 12:16 | CATHPROC ---
[employer] HIS Report Study Information Study Number Admission Scheduled Start Study Start [id number] Jul 31 2017 10:37AM 07/31/2017 Jul 31 2017 11:25AM [place] [facility] Cardiac Catheterization Admit Source Facility Department Transfer in from another acute care facility [facility] - Paint Stock Clerk Physician and Clinical Staff Initial Shawn Fabian Fundraising ManagerChen Moore,FELIZ Fundraising ManagerBassam Ontiveros,FELIZ Other Enrrique Baer,JUSTUS Recorder Yolanda Pratt,(R) (BS) Scrub Ortiz Arreaga RCIS(BS) Procedures Performed Procedure Location (Site) Vessel Name Coronary Angiograms LCA Left Coronary Coronary Angiograms RCA Right Coronary L Heart Cath PTCA RCA Prox Right Coronary Wire insertion Fem Art (left) Femoral Art Wire insertion Fem Art (right) Femoral Art Equipment Time Liquid Floor And Wall Applier Description Size Mfg Part Number Used/Scraped PERCLOSE, PRO GLIDE CLOSER 11:57 [employer] FR 6 [id number] *[id number] Used DEVICE TRANSDUCER, TRUWAVE [id number] 11:27 BROWN Life is Tech * Used W/STOCKCOCK *[id number]-502-10.0- INTRODUCER SET, 11:27 [employer]. FR 5 SC-NT-U-SST Used MICROPUNCTURE, STIFFENED *[id number] *[id number] *[id number] WIRE, HYDROSTEER 150CM [id number] 11:33 DAIG/ST. [employer] MEDICAL 150CM Used ANGLED GLIDE *[id number] 11:27 Yelago INDUSTRIES PACK, CCL CUSTOM * Used *[id number] 11:42 MEDTRONIC BALLOON, 2.5 X 15MM EUPHORA 15MM Used *[id number] BALLOON, 3.0 X 12MM NC [id number] 11:44 MEDTRONIC 12MM Used EUPHORA *[id number] 11:44 [employer] MEDICAL 30 LOR INDEFLATOR Used *[id number] 11:27 [employer] MEDICAL SHEATH, FR6.5 PRELUDE 11CM FR 6.5 038ACT Used *[id number] 11:27 [employer] MEDICAL WIRE, 3MMJ .035 180CM 180CM Used *[id number] 11:27 NAMIC MANIFOLD, 4 PORT * Used *[id number] 11:27 NYCOMED OMNIPAQUE, 350 MG, 150ML 150ML [id number] Used [id number] 11:27 RICHARD MEDICAL BLANKET,WARM AIR CCL * Used *[id number] 11:34 [email or web address] MEDICAL SHEATH, FR5 TERUMO (10CM) FR 5 Used *[id number] WIRE, RUNTHROUGH NS FLOPPY [id number] 11:39 TERUMO MEDICAL 180CM Used .014 180CM *[id number] Equipment Model, Serial, Lot Number and Expiration Data Description Model Number Serial Number Lot Number Expiration Date WIRE, HYDROSTEER 150CM [id number] 03-25-2020 ANGLED GLIDE History: Current Medications Medication Dosage/Unit Route Frequency Last Date/Time Taken LISINOPRIL Statins (any) Beta Gregory ASA PLAVIX History: Allergies Allergy Reaction No Known Allergies History: Risk Factors Family History of Hypertension Dyslipidemia Previous WI Previous Heart Failure Premature CAD Yes Yes No Yes No Prior Valve Prior PCI Prior PCIDate Prior CABG Surgery No Yes 07/25/2017 No Cerebrovascular Peripheral Artery Chronic Lung On Dialysis Diabetes Diabetes Therapy Disease Disease Disease No No No Yes Yes Oral History: Symptoms/Diagnosis Selection Items Chest pain History: Stress Tests Stress or Imaging Studies Performed No History: Other Disease Selection Items COPD HTN History: WI/CV Data Previous Cath Date 07/22/2017 History: Other Current Smoker Method Quit No Cigarettes 3 Years Ago Labs Hgb (g/dl) Hct (%) WBC (l/cumm) Platelets (thousands) 11.60-17.00 35.00-51.00 4.00-11.00 150.00-450.00 15.3 45.4 9.3 337 Glucose (mg/dl) BUN (mg/dl) Creatinine (mg/dl) BUN:Creatinine (1:x) 74.00-106.00 7.00-18.00 0.50-1.30 10.00-20.00 114 19 1.3 14.6 Na (meq/l) K (meq/l) 136.00-145.00 3.50-5.10 143 4 INR (PTT:PT) 0.90-1.10 1 Troponin I (ng/ml) CPK-MB (ng/ML) 0.02-0.05 0.50-3.60 0.03 Not Drawn Medication Medication Total Dose (Bolus/Oral) Medication Total Dosage/Unit 1% XYLOCAINE 20 mL BRILLINTA 180 mg FENTANYL 25 mcg HEPARIN 6400 units VERSED 2 mg Medications (Bolus/Oral) Medication Time Given Dosage/Unit Administered By Reason 1% XYLOCAINE 07/31/2017 11:30:19 AM 20 mL Robledo-Gee, Shawn 20 mL 1% XYLOCAINE given in lab by Blessing Shawn in Left Groin via Subcutaneous. VERSED 07/31/2017 11:36:30 AM 1 mg Robledo-Gee, Shawn 1 mg VERSED given in lab by Xavier Funkro in Left Groin via Peripheral IV. HEPARIN 07/31/2017 11:39:33 AM 6400 units Chen Bowling 6400 units HEPARIN given in lab by Chen Bowling RN in Left Groin via Peripheral IV. VERSED 07/31/2017 11:55:18 AM 1 mg Chen Bowling 1 mg VERSED given in lab by Chen Bowling RN in Left Groin via Peripheral IV. FENTANYL 07/31/2017 11:56:29 AM 25 mcg Chen Bowling 25 mcg FENTANYL given in lab by Chen Bowling RN in Left Groin via Peripheral IV. BRILLINTA 07/31/2017 12:01:17 PM 180 mg Chen Bowling 180 mg BRILLINTA given in lab by Chen Bowling RN in Per mouth via Oral. Medication (Drip) Medication Time Given Dosage/Unit Concentration/Unit Diluent (ml) Solution ANGIOMAX DRIP 07/31/2017 12:14:37 PM 1.75 mg/kg/hr 250 mg 50 NaCl .9 1.75 mg/kg/hr ANGIOMAX DRIP given in lab by Chen Bowling RN in Left Groin via Peripheral IV. Pump /Drip Flow = 32.2 ml/hr using NaCl .9 with a concentration of 250 mg in 50 ml. IV Solutions 07/31/2017 11:36:02 AM 0 mL (IV) 500 NaCl .9 IV Solutions given in lab by Shawn Funk in Left Groin via Peripheral IV. Pump/Drip Flow = 20 m l/hr using NaCl .9. Initial Case Assessment Cardiovascular HR Rhythm NIBP Chest Pain 60 reg 171/63 4 Edema Present Skin color Skin None Normal Warm Dry Circulatory - Right Pulses Dorsalis Pedis Femoral 1 1 Scale (0,1,2,3,4,d) Circulatory - Left Pulses Dorsalis Pedis Femoral 1 1 Scale (0,1,2,3,4,d) Circulatory - Lower Extremities Color Lower Right Color Lower Left Normal Normal Neurological State Oriented to time-place- Alert Moves all extremities person Respiration - General Respiration Rate (B/min) 20 Chronological Log Time Study Chronological Log 11:18:41 Patient arrived via Bed. 11:18:45 Patient Name, D.O.B, / Armband Verified By R.N. 11:24:49 Consent signed by the physician and the patient and verified by the Paint Stock Clerk staff. 11:24:50 Pre-op and post- op instructions given; patient acknowledges understanding of instructions. 11:24:51 Verbal Stimulation=2 Physical Stimulation=2 Airway=2 Respiration=2 TOTAL=8. (0=absent, 1=li mited, 2=present) 11:24:53 Presedation assessment performed by Paint Stock Clerk RN. 11:24:57 Immediate Presedation assesment performed by physician. 11:25:00 Skin Breakdown none per pt 11:25:17 Patient Warmer Placed on the Table. 11:25:18 Disposable Defibrillator Pads Placed On Patient. 11:25:20 Quirino Prominences Protected 11:25:23 History and physical on the chart or being dictated. Assessment: Initial Case, HR=60 BPM, Rhythm=reg, NRVD=345/63 mmhg, Chest Pain=4, Edema=None, Co dashawn=Normal, Skin = Warm, Dry Right Pulses: Gene Ped=1, Femoral=1 Left Pulses: Gene Ped=1, Femoral=1 11:25:24 Lower Right Extremities: Color=Normal Lower Left Extremities: Color=Normal Neurological: State=Alert, Ox3, HAMMONDS Respiration: Resp=20 B/min Vitals capture started with the following parameters, Patient=Adult, Interval=3 min, Initial Pr oskrxi=088 mmHg, 11:25:30 Deflation Rate=5 mmHg, Cuff placed on Left Ankle 11:26:19 HR=78 bpm, KEMR=802/63 mmhg, SpO2=93 %, Resp=22 B/min, Pain=4, Kuldip=10, Tang=2 11:28:18 Reference ECG taken Time Out. Correct patient, correct procedure, correct physician, power injector not loaded with contrast with surgical 11:28:57 team present. Time Out Concurred by MD and individual staff in procedure. 11:29:02 HR=60 bpm, OEEZ=962/88 mmhg, SpO2=93.0 %, Resp=24 B/min, Pain=4, Kuldip=10, Tang=2 11:29:06 Case Start 11:30:19 20 mL 1% XYLOCAINE given in lab by Blessing Shawn in Left Groin via Subcutaneous. 11:31:22 Pressure channel 1 zeroed. 11:31:42 Access site was Left Femoral Artery. A INTRODUCER SET, MICROPUNCTURE, STIFFENED FR 5 was advanced into the Fem Art (left) using the Percutaneous 11::54 technique. A SHEATH, FR6.5 PRELUDE 11CM FR 6.5 was exchanged in the Fem Art (left). This was necessary in order to 11:32:01 accomodate a larger catheter. 11:32:09 HR=61 bpm, SPUN=223/79 mmhg, SpO2=96.0 %, Resp=23 B/min, Pain=4, Kuldip=10, Tang=2 11:33:44 Access site was Right Femoral Vein. 11:33:50 A SHEATH, FR5 TERUMO (10CM) FR 5 was advanced into the Fem Art (right) using the Percutaneo us technique. A JL 4.0 INFINITI CATHETER FR 6 was advanced over a wire. OMNIPAQUE, 350 MG, 150ML 150ML was us ed for 11:35:06 injections. 11:35:09 HR=60 bpm, IMDP=029/77 mmhg, SpO2=95.0 %, Resp=26 B/min, Pain=4, Kuldip=10, Tang=2 11:35:13 A WIRE, HYDROSTEER 150CM ANGLED GLIDE 150CM was inserted via Fem Art (left). 11:35:40 The previous wire was exchanged for a WIRE, 3MMJ .035 180CM 180CM. IV Solutions given in lab by Shawn Funk in Left Groin via Peripheral IV. Pump/Drip Flow = 20 ml/hr using NaCl 11:36:02 .9. Recorded Pressure: Ao, HR=61, Condition=Condition 1 11:36:24 (Aorta) Ao 128/85/105 11:36:30 1 mg VERSED given in lab by Shawn Funk in Left Groin via Peripheral IV. 11:36:46 The LCA was injected and visualized at various angles. OMNIPAQUE, 350 MG, 150ML 150ML used . 11:37:06 Catheter was removed A JR 4.0 GUIDE CATHETER FR 6 was advanced over a wire. OMNIPAQUE, 350 MG, 150ML 150ML was used for 11:37:54 injections. 11:38:11 HR=60 bpm, RLRH=066/74 mmhg, SpO2=96.0 %, Resp=24 B/min, Pain=4, Kuldip=10, Tang=2 11:38:47 The RCA was injected and visualized at various angles. OMNIPAQUE, 350 MG, 150ML 150ML used . 11:39:07 A WIRE, RUNTHROUGH NS FLOPPY .014 180CM 180CM was inserted via Fem Art (right). 11:39:33 6400 units HEPARIN given in lab by Chen Bowling, FELIZ in Left Groin via Peripheral IV. 11:41:06 Interventional wire has crossed the lesion 11:41:09 UF=695 bpm, ZBES=267/106 mmhg, SpO2=94.0 %, Resp=9 B/min, Pain=4, Kuldip=10, Tnag=2 A BALLOON, 2.5 X 15MM EUPHORA 15MM was inserted over WIRE, RUNTHROUGH NS FLOPPY .014 180CM 180C M via 11:43:36 the Fem Art (right). A BALLOON, 2.5 X 15MM EUPHORA 15MM over a WIRE, RUNTHROUGH NS FLOPPY .014 180CM 180CM in the RC A 11:43:45 Prox was inflated using a 30 LOR INDEFLATOR at 14 lor for 12 sec. 11:44:12 GH=022 bpm, GLBX=611/93 mmhg, SpO2=95.0 %, Resp=15 B/min, Pain=4, Kuldip=10, Tang=2 11:44:21 Balloon Removed A BALLOON, 3.0 X 12MM NC EUPHORA 12MM was inserted over WIRE, RUNTHROUGH NS FLOPPY .014 180CM 1 80CM 11:45:22 via the Fem Art (left). A BALLOON, 3.0 X 12MM NC EUPHORA 12MM over a WIRE, RUNTHROUGH NS FLOPPY .014 180CM 180CM in the RCA 11:45:30 Prox was inflated using a 30 LOR INDEFLATOR at 14 lor for 15 sec. A BALLOON, 3.0 X 12MM NC EUPHORA 12MM over a WIRE, RUNTHROUGH NS FLOPPY .014 180CM 180CM in the RCA 11:45:37 Prox was inflated using a 30 LOR INDEFLATOR at 16 lor for 10 sec. 11:45:41 NIBP STAT measurement started. A BALLOON, 3.0 X 12MM NC EUPHORA 12MM over a WIRE, RUNTHROUGH NS FLOPPY .014 180CM 180CM in the RCA 11:45:49 Prox was inflated using a 30 LOR INDEFLATOR at 18 lor for 15 sec. 11:46:21 FK=790 bpm, VPOL=549/105 mmhg, SpO2=95.0 %, Resp=19 B/min, Pain=4, Kuldip=10, Tang=2 Recorded Pressure: Ao, FX=580, Condition=Condition 1 11:46:58 (Aorta) Ao 157/86/118 11:47:26 MT=767 bpm, UIQM=146/93 mmhg, SpO2=96.0 %, Resp=16 B/min, Pain=4, Kuldip=10, Tang=2 A BALLOON, 3.0 X 12MM NC EUPHORA 12MM over a WIRE, RUNTHROUGH NS FLOPPY .014 180CM 180CM in the RCA 11:48:08 Prox was inflated using a 30 LOR INDEFLATOR at 12 lor for 20 sec. 11:49:23 Balloon Removed. A BALLOON, 2.5 X 15MM EUPHORA 15MM was inserted over WIRE, RUNTHROUGH NS FLOPPY .014 180CM 180C M via 11:49:25 the Fem Art (left). A BALLOON, 2.5 X 15MM EUPHORA 15MM over a WIRE, RUNTHROUGH NS FLOPPY .014 180CM 180CM in the RC A 11:50:11 Prox was inflated using a 30 LOR INDEFLATOR at 10 lor for 30 sec. 11:50:12 CS=967 bpm, OKDI=205/91 mmhg, SpO2=96.0 %, Resp=17 B/min, Pain=4, Kuldip=10, Tang=2 A BALLOON, 2.5 X 15MM EUPHORA 15MM over a WIRE, RUNTHROUGH NS FLOPPY .014 180CM 180CM in the RC A 11:51:17 Prox was inflated using a 30 LOR INDEFLATOR at 20 lor for 20 sec. 11:52:31 Balloon Removed. 11:53:17 UG=567 bpm, ZAXJ=192/80 mmhg, SpO2=95.0 %, Resp=24 B/min, Pain=4, Kuldip=10, Tang=2 11:54:40 Wire removed 11:54:47 Catheter was removed 11:55:09 An injection in the Fem Art (left) was made through the SHEATH, FR6.5 PRELUDE 11CM FR 6.5. 11:55:18 1 mg VERSED given in lab by Chen Bowling, FELIZ in Left Groin via Peripheral IV. 11:56:15 DE=471 bpm, GZLL=903/93 mmhg, SpO2=97.0 %, Resp=12 B/min, Pain=4, Kuldip=10, Tang=2 11:56:29 25 mcg FENTANYL given in lab by Chen Bowling, FELIZ in Left Groin via Peripheral IV. 11:58:21 PERCLOSE, PRO GLIDE CLOSER DEVICE FR 6 placement in the Fem Art (left) 11:59:17 IJ=693 bpm, VFQW=449/100 mmhg, SpO2=97.0 %, Resp=11 B/min, Pain=4, Kuldip=10, Tang=2 12:00:03 Case End 12:00:45 Catheter(s) removed without difficulty 12:00:56 No case complications noted. 12:00:58 Cine recording checked. 12:01:17 180 mg BRILLINTA given in lab by Chen Bowling, FELIZ in Per mouth via Oral. 12:01:54 Bedside Report will be given. 12:01:55 Implantable Device card placed in patient's chart. 12:01:59 Contrast Scanned 12:02:04 A Left Heart Cath was performed. 12:02:15 II=270 bpm, EERJ=520/101 mmhg, SpO2=97.0 %, Resp=17 B/min, Pain=4, Kuldip=10, Tang=2 12:02:44 In the Fem Vein (right) the SHEATH, FR5 TERUMO (10CM) FR [address] by Edward Arreaga RCIS(BS). 12:03:00 Sterile dressing applied to site 12:03:02 Sterile dressing applied to site 12:05:15 YB=184 bpm, NHDP=104/102 mmhg, SpO2=97.0 %, Resp=18 B/min, Pain=4, Kuldip=10, Tang=2 12:06:19 CIC called. Spoke to Ale. Advised alfreda sheath still in. 12:07:45 Vitals capture stopped. 1.75 mg/kg/hr ANGIOMAX DRIP given in lab by Chen Bowling RN in Left Groin via Peripheral I V. Pump/Drip Flow = 12:14:37 32.2 ml/hr using NaCl .9 with a concentration of 250 mg in 50 ml. 12:17:24 Patient moved to [facility] End Study - Contrast Media Used In Study Contrast Total Opened (mL) Total Used (mL) Total Wasted (mL) Omnipaque 90 90 0 End Study - Maximum Contrast Load Max Contrast Load (mL) 353.8 End Study - Radiation Exposure Fluoro Time (minutes) 9.1 End Study - Sheaths Sheaths Pulled By Sheath Hold Time (min) Shawn Funk End Study - Patient Disposition Complications Transferred To Interventional Outcome No Telemetry Bed successful
[2017-07-31] MEDS ORDERED: SODIUM CHLOR 0.9% 1000 ML INJ 1,000 ML IV SCH (12:19)
[2017-07-31] MEDS ORDERED: ATROPINE SULFATE 1 MG/ML VIAL IV PUSH PRN (12:30)
[2017-07-31] MEDS ORDERED: ONDANSETRON HCL 4 MG/2 ML VIAL IV PUSH PRN (12:30)
[2017-07-31] MEDS ORDERED: ACETAMINOPHEN 325 MG TAB PO PRN (12:30)
[2017-07-31] MEDS ORDERED: MISC INFORMATION XX ONE (12:30)
--- NOTE | 2017-07-31 12:56 | MA ---
cc: BRANLENA Stephens DATE 07/31/2017 DATE OF 1935 PROCEDURE PERFORMED 1. Left heart catheterization 2. Selective right and left coronary angiography 3. Selective left common femoral artery angiography. INDICATION ST-segment elevation NC, acute stent thrombosis. DESCRIPTION OF PROCEDURE Consent signed and patient was brought emergently to the cardiac labeling strategist. The right wrist and left groin were prepped and draped in a sterile fashion using 1 % lidocaine for local anesthesia and a micropuncture kit. A 6-Vincentian sheath was inserted into the left common femoral artery. Left common femoral artery angiography was performed to confirm position of the sheath, then selective right and left coronary angiography was performed with a JL-4 diagnostic catheter and a JR-4 guide. Angiography was taken in multiple views. We identified acute stent thrombosis of the right coronary artery stent that was placed on July 25, 2017. Heparin was given for IV anticoagulation. The right coronary artery was engaged with a JR-4 guide followed and was wired with a run-through wire which was anchored distally in the PDA. The lesion was predilated with a 2.5 x 15 compliant balloon followed by another inflation with a noncompliant 3.0 x 12 balloon. We inflated this balloon from the mid section of the right coronary artery where the previous stents where until the ostial coronary artery. Final angiographic views revealed SWAPNA-III flow, no residual stenosis. EKG shows ST-segment decreased. The patient reported feeling better from the chest pain, thus, the procedure was concluded. The left groin access site was closed with a Perclose device. Brilinta was given after the procedure. RESULTS OF ANGIOGRAPH The left main unchanged with nonobstructive coronary artery disease, some calcification and is giving off the LAD, the left circumflex and a ramus vessel. The LAD is a transapical vessel. It has minimal luminal irregularities and has a proximal 40% lesion and a mid 50% lesion and is giving off a diagonal vessel which is patent and diffusely diseased. The left circumflex artery has a 60% lesion proximally and is giving off an OM branch and a small AV groove segment. The vessel has SWAPNA-III flow. The ramus patent with SWAPNA-III flow, nonobstructive coronary artery disease. The right coronary artery has 100% occlusion in its proximal segment with SWAPNA- 0 flow. CONCLUSION Acute stent thrombosis of the recently placed right coronary artery stent with successful opening of the vessel with a POBA. RECOMMENDATIONS Unclear if the patient was compliant with the Plavix or he was a nonresponder, thus the patient will be loaded with Brilinta. He is to continue with Brilinta and aspirin for at least a year per ACC/NHA guidelines. We will continue him on a Angiomax drip for the next four hours. Aggressive medical management for secondary prevention of CAD with statins, beta jonathan, EDISON inhibitors. The patient should get 2-D echocardiogram in AM. MD PAM Betancourt/[place] /12:06 PM /12:29 PM MARGUERITE
--- NOTE | 2017-07-31 13:06 | MB ---
cc: LENA HALE DATE OF CONSULTATION 07/31/2017 DATE OF 1935 REASON FOR CONSULTATION Inferior ST-segment elevation WA. HISTORY OF PRESENT ILLNESS 82-year-old male with a past medical history significant for coronary artery disease status post recent right coronary artery stent on July 25, [address] Judd. This was a high risk intervention after CT surgery declined him secondary for a CABG. The patient reports that today he started having some chest discomfort for which he presented to the emergency department at [facility]. The initial EKG showed a sinus tachycardia with inferior ST-segment elevation and reciprocal changes in the anterior leads thus a STEMI alert was activated. The patient was given aspirin, heparin drip and transferred to the main hospital for primary PCI. REVIEW OF SYSTEMS Negative except for what is mentioned in the HPI. PAST MEDICAL HISTORY 1. CAD status post PCI 2. Hypertension 3. Hyperlipidemia 4. COPD 5. Diabetes PAST SURGICAL HISTORY PCI to the right coronary artery disease. ALLERGIES NO KNOWN DRUG ALLERGIES. FAMILY HISTORY Noncontributory SOCIAL HISTORY He is a former smoker. Denies illicit drug use or alcohol abuse. PHYSICAL EXAMINATION VITAL SIGNS: Temperature 97, heart rate 110, respiratory rate 25, blood pressure 140/80, O2 sat is 92% on 4 liters nasal cannula. GENERAL: Awake, alert, and oriented x3 complaining of chest pain. NECK: Positive JVD, no carotid bruits. HEART: Tachycardic. No murmurs, rubs or gallops. LUNGS: Bilateral rales. ABDOMEN: Benign. EXTREMITIES: No cyanosis or edema. Pulses diminished throughout. DATA CBC hemoglobin 15.3, hematocrit 45, platelet count 337. Sodium 143, potassium 4.0, BUN 19, creatinine 1.3. EKG shows, as mentioned, sinus tachycardia with an ST-segment elevation in the inferior leads. LHC/PCI on 07/25/2017- Reviewed HOME MEDICATIONS 1. Lisinopril 2. Atorvastatin 3. Metoprolol 4. Norvasc 5. aspirin 6. Plavix ASSESSMENT/PLAN 82-year-old male with an inferior ST-segment elevation WA and recent PCI to the right coronary artery likely this presentation is due to acute stent thrombosis. It is unclear if the patient is compliant with his Plavix and/or he is a nonresponder to Plavix. At this point, I will take him directly to the cardiac optical laboratory technician for primary PCI. The risks and benefits of left heart cath including but not limited to neurovascular trauma, infection, bleeding, acute kidney injury, stroke, emergent bypass surgery, and have been explained to the patient. The patient understands the risks and he is willing to proceed. Thank you for the opportunity to take part in the care of this patient. Further management to be determined. MD PAM Betancourt/[place] /12:14 PM /12:45 PM MARGUERITE
[2017-07-31] MEDS ORDERED: IOHEXOL 350 MG/ML 100 ML BTL (for Cath Lab) OTHER ONE (16:09)
[2017-07-31] MEDS ORDERED: RESP: ALBUTEROL 2.5 MG/3 ML NEB (PRN) INH (18:15)
[2017-07-31] MEDS ORDERED: ATORVASTATIN 10 MG TAB PO SCH (21:00)
[2017-07-31] MEDS ORDERED: CARVEDILOL 3.125 MG TAB PO SCH (21:00)
[2017-08-01] VITALS (18 sets, daily range): BP systolic 108–141; BP diastolic 62–78; PULSE 85–112; RESP 18–20; TEMP 97.4–98.7; O2SAT 96–100
[2017-08-01 04:16] LABS: AUTOMATED NEUTROPHIL # 16.3 TH/MM3 (1.8-7.7); BASOPHIL # 0.1 TH/MM3 (0-0.2); BASOPHIL % 0.5 % (0.0-2.0); EOSINOPHIL # 0.1 TH/MM3 (0-0.4); EOSINOPHIL % 0.3 % (0.0-4.0); HEMATOCRIT 46.5 % (39.0-51.0); HEMO FLAGS DIFF FINAL; LYMPH % 6.2 % (9.0-44.0); LYMPHOCYTE # 1.2 TH/MM3 (1.0-4.8); MEAN CELL VOLUME 95.2 FL (80.0-100.0); MEAN CORPUSCULAR HEMOGLOBIN 31.9 PG (27.0-34.0); MEAN CORPUSCULAR HGB CONC 33.5 % (32.0-36.0); MONO % 7.3 % (0.0-8.0); NEUT % 85.7 % (16.0-70.0); PLATELET COUNT 354 TH/MM3 (150-450); RED BLOOD COUNT 4.88 MIL/MM3 (4.50-5.90); RED CELL DISTRIBUTION WIDTH 14.8 % (11.6-17.2)
[2017-08-01 04:49] LABS: BICARBONATE 21.4 MEQ/L (21.0-32.0)
[2017-08-01 04:53] LABS: HDL CHOLESTEROL 35.5 MG/DL (40.0-60.0)
--- NOTE | 2017-08-01 05:24 | EKG ---
Date Performed: 07/31/2017 Time Performed: 10:40:24 PTAGE: 82 years EKG: SINUS TACHYCARDIA POSSIBLE SEPTAL MYOCARDIAL INFARCTION MARKED ST ELEVATION, CONSIDER INFER IOR INJURY ACUTE MT INTERPRETATION BASED ON A DEFAULT AGE OF 40 YEARS PREVIOUS TRACING : 07/25/2017 05.42 DOCTOR: Shawn Funk Interpretating Date/Time 08/01/2017 05:15:56
--- NOTE | 2017-08-01 07:51 | PD.CARD.PN ---
Subjective Subjective Remarks no CV complaints + cough leukocytosis Objective Medications Current Medications Medications (Trade) Dose Ordered Sig/Maury Route Start Time Stop Time Status Last Admin (Tylenol) 325 mg Q4H PRN PO 07/31/17 12:30 (Aspirin Chew) 81 mg DAILY PO 08/01/17 09:00 (Brilinta) 90 mg BID PO 08/01/17 09:00 (Atropine Inj) 0.5 mg UNSCH PRN IV PUSH 07/31/17 12:30 (Zofran Inj) 4 mg Q4H PRN IV PUSH 07/31/17 12:30 (Coreg) 3.125 mg BID PO 07/31/17 21:00 07/31/17 20:58 (Prinivil) 5 mg DAILY PO 08/01/17 09:00 (NS Flush) 2 ml UNSCH PRN IVF 07/31/17 18:00 (Albuterol Neb) 2.5 mg Q6HR NEB PRN INH 07/31/17 18:15 (Lipitor) 80 mg HS PO 08/01/17 21:00 Vital Signs / I&O Vital Signs Date Time Temp Pulse Resp B/P (MAP) Pulse Ox O2 Delivery O2 Flow Rate FiO2 08/01/17 06:00 104 08/01/17 05:00 99 08/01/17 04:00 98.3 98 20 129/78 (95) 96 08/01/17 04:00 95 08/01/17 03:00 93 08/01/17 02:00 95 08/01/17 01:00 107 08/01/17 00:00 97.4 107 18 130/77 (94) 98 08/01/17 00:00 105 07/31/17 23:00 105 07/31/17 22:00 117 07/31/17 21:00 110 07/31/17 20:00 97.9 109 20 169/98 (121) 98 07/31/17 20:00 107 07/31/17 19:00 112 07/31/17 16:00 89 07/31/17 16:00 98.6 78 18 150/84 (106) 96 07/31/17 14:04 98.2 78 17 147/78 (101) 97 07/31/17 13:30 98.8 120 18 173/75 (107) 95 07/31/17 10:37 95 Nasal Cannula 3.00 07/31/17 10:37 97.7 104 24 155/80 (105) 92 I/O 07/31/17 07/31/17 07/31/17 08/01/17 08/01/17 08/01/17 07:00 15:00 23:00 07:00 15:00 23:00 Intake Total 400 ml 240 ml Output Total 1275 ml Balance 400 ml -1035 ml Intake Oral 400 ml 240 ml Output Urine Total 1275 ml # Voids 7 2 # Bowel Movements 0 Physical Exam GENERAL: Well-nourished, well-developed patient. SKIN: Warm and dry. HEAD: Normocephalic. EYES: No scleral icterus. No injection or drainage. NECK: Supple, trachea midline. No JVD or lymphadenopathy. CARDIOVASCULAR: Regular rate and rhythm without murmurs, gallops, or rubs. RESPIRATORY: Breath sounds equal bilaterally. No accessory muscle use. GASTROINTESTINAL: Abdomen soft, non-tender, nondistended. EXTREMITIES: No cyanosis, or edema. NEUROLOGICAL: Awake, alert, and oriented x 3. Non-focal. Laboratory Laboratory Tests Test 07/31/17 10:48 08/01/17 03:37 White Blood Count 16.4 TH/MM3 19.0 TH/MM3 Red Blood Count 5.16 MIL/MM3 4.88 MIL/MM3 Hemoglobin 16.4 GM/DL 15.6 GM/DL Hematocrit 48.6 % 46.5 % Mean Corpuscular Volume 94.3 FL 95.2 FL Mean Corpuscular Hemoglobin 31.7 PG 31.9 PG Mean Corpuscular Hemoglobin Concent 33.7 % 33.5 % Red Cell Distribution Width 14.8 % 14.8 % Platelet Count 361 TH/MM3 354 TH/MM3 Mean Platelet Volume 8.5 FL 9.2 FL Neutrophils (%) (Auto) 80.1 % 85.7 % Lymphocytes (%) (Auto) 13.5 % 6.2 % Monocytes (%) (Auto) 3.8 % 7.3 % Eosinophils (%) (Auto) 1.8 % 0.3 % Basophils (%) (Auto) 0.8 % 0.5 % Neutrophils # (Auto) 13.2 TH/MM3 16.3 TH/MM3 Lymphocytes # (Auto) 2.2 TH/MM3 1.2 TH/MM3 Monocytes # (Auto) 0.6 TH/MM3 1.4 TH/MM3 Eosinophils # (Auto) 0.3 TH/MM3 0.1 TH/MM3 Basophils # (Auto) 0.1 TH/MM3 0.1 TH/MM3 CBC Comment AUTO DIFF DIFF FINAL Differential Comment AUTO DIFF CONFIRMED Prothrombin Time 12.0 SEC Prothromb Time International Ratio 1.1 RATIO Activated Partial Thromboplast Time 29.3 SEC Blood Urea Nitrogen 27 MG/DL 30 MG/DL Creatinine 1.60 MG/DL 1.65 MG/DL Random Glucose 162 MG/DL 149 MG/DL Calcium Level 9.3 MG/DL 8.9 MG/DL Magnesium Level 2.2 MG/DL Sodium Level 137 MEQ/L 137 MEQ/L Potassium Level 4.4 MEQ/L 4.0 MEQ/L Chloride Level 104 MEQ/L 103 MEQ/L Carbon Dioxide Level 20.1 MEQ/L 21.4 MEQ/L Anion Gap 13 MEQ/L 13 MEQ/L Estimat Glomerular Filtration Rate 42 ML/MIN 40 ML/MIN Total Creatine Kinase 30 U/L Troponin I 0.03 NG/ML Triglycerides Level 85 MG/DL Cholesterol Level 109 MG/DL LDL Cholesterol 57 MG/DL HDL Cholesterol 35.5 MG/DL Cholesterol/HDL Ratio 3.07 RATIO Imaging Last Impressions Chest X-Ray 07/31/17 1044 Signed Impressions: Service Date/Time: Monday, July 31, 2017 10:54 - CONCLUSION: 1. Stable left lung base atelectasis. 2. No acute abnormality or significant interval change. Gage Langley MD Assessment and Plan Problem List: (1) STEMI (ST elevation myocardial infarction) ICD Codes: I21.3 - STEMI (ST elevation myocardial infarction) Status: Acute Plan: Cont DAPT with ASA and Brilinta BB, statin, Imdur, Acei 2decho encourage out of bed, ambulation and incentive spirometry COPD exacerbation start Levaquin 500mg PO x 5 days, standing inhalers therapy with Atrovent Hosp consult for medical management (2) Leukocytosis ICD Codes: D72.829 - Leukocytosis Status: Acute (3) Shortness of breath ICD Codes: R06.02 - Shortness of breath Status: Resolved (4) Unsteady gait ICD Codes: R26.81 - Unsteadiness on feet (5) Ischemic cardiomyopathy ICD Codes: I25.5 - Ischemic cardiomyopathy Status: Chronic (6) COPD (chronic obstructive pulmonary disease) ICD Codes: J44.9 - Chronic obstructive pulmonary disease, unspecified Status: Chronic Problem Qualifiers (1) STEMI (ST elevation myocardial infarction): Qualified Codes: I21.3 - ST elevation (STEMI) myocardial infarction of unspecified site Shawn Funk MD Aug 01, 2017 07:51
[2017-08-01] MEDS: TICAGRELOR 90 MG TAB PO SCH ×2 (08:22→21:22)
[2017-08-01] MEDS: ASPIRIN 81 MG CHEW TAB PO SCH (08:22)
[2017-08-01] MEDS: CARVEDILOL 6.25 MG TAB PO SCH ×2 (08:22→21:22)
[2017-08-01] MEDS ORDERED: LISINOPRIL 5 MG TAB PO SCH (09:00)
[2017-08-01] MEDS ORDERED: LEVOFLOXACIN 500 MG TAB PO ONE (09:00)
[2017-08-01] MEDS: RESP: IPRATROPIUM 0.5 MG/2.5 ML NEB NEB SCH ×2 (10:00→16:16)
--- NOTE | 2017-08-01 13:27 | PD.CONS ---
[facility] By Shawn Funk MD Reason for Consult Medical Management Primary Care Physician Jase Lezama M.D. Diagnoses: History of Present Illness This is a pleasant 82 y/o male with Medical history significant for COPD, CAD, Hypertension, who came to ER with chest pain, dizziness and shortness of breath. found inferior TX. Status post Cardiac Catheterization 1937, had Left heart catheterization, Selective Right and left Coronary angiography, Selective left common femoral artery angiography, due to ST segment elevation [place], acute stent thrombosis, found Acute stent thrombosis of the recently placed right coronary artery stent with successful opening of the vessel with POBA, by Doctor Shawn Robledo, today I was consulted for Medical Management. by Doctor Venkat. At this time seen in his bedroom in moderate respiratory distress, has expiratory wheezing, started on Solu-Medrol Duoneb treatment, Budesonide, Mucinex and incentive spirometry, already given Levaquin by Doctor Robledo. No nausea, vomit or diarrhea. Review of Systems Constitutional: DENIES: Fever, Chills, Change in appetite Endocrine: DENIES: Heat/cold intolerance Eyes: DENIES: Blurred vision, Eye pain Respiratory: COMPLAINS OF: Cough, Shortness of breath Except as stated in HPI: all other systems reviewed are Neg Past Family Social History Allergies: Coded Allergies: No Known Allergies (Unverified , 07/19/17) Past Medical History COPD, coronary artery disease, hypertension PCI and stent placement Hyperlipidemia COPD CAD Hypertension DM II Urolithiasis Past Surgical History PCI and Stent placement Reported Medications Reported Meds & Active Scripts Active Aspirin Low Strength (Aspirin) 81 Mg Chew 81 Mg PO DAILY Metoprolol Tartrate 25 Mg Tab 12.5 Mg PO BID Atorvastatin (Atorvastatin Calcium) 40 Mg Tab 40 Mg PO HS Plavix (Clopidogrel Bisulfate) 75 Mg Tab 75 Mg PO DAILY Reported Vitamin D3 (Cholecalciferol) 1,000 Unit Cap 1,000 Units PO DAILY Isosorbide Mononitrate ER (Isosorbide Mononitrate) 60 Mg Tab 60 Mg PO DAILY Furosemide 20 Mg Tab 20 Mg PO DIRECTED Lisinopril 5 Mg Tab 5 Mg PO DAILY Amlodipine (Amlodipine Besylate) 5 Mg Tab 5 Mg PO DAILY Metformin (Metformin HCl) 1,000 Mg Tab 1,000 Mg PO DAILY With a meal Active Ordered Medications Current Medications Medications (Trade) Dose Ordered Sig/Maury Route Start Time Stop Time Status Last Admin (Tylenol) 325 mg Q4H PRN PO 07/31/17 12:30 (Aspirin Chew) 81 mg DAILY PO 08/01/17 09:00 08/01/17 08:22 (Brilinta) 90 mg BID PO 08/01/17 09:00 08/01/17 08:22 (Atropine Inj) 0.5 mg UNSCH PRN IV PUSH 07/31/17 12:30 (Zofran Inj) 4 mg Q4H PRN IV PUSH 07/31/17 12:30 (Prinivil) 5 mg DAILY PO 08/01/17 09:00 08/01/17 08:22 (NS Flush) 2 ml UNSCH PRN IVF 07/31/17 18:00 (Albuterol Neb) 2.5 mg Q6HR NEB PRN INH 07/31/17 18:15 (Lipitor) 80 mg HS PO 08/01/17 21:00 (Coreg) 6.25 mg BID PO 08/01/17 09:00 08/01/17 08:22 (Imdur) 30 mg DAILY@07 PO 08/02/17 07:00 (Atrovent Neb) 0.5 mg Q6HR NEB NEB 08/01/17 10:00 (Levaquin) 250 mg DAILY PO 08/02/17 09:00 Family History Patient was adopted. Social History Patient used to smoke for many years. He quit a few years ago. He denies alcohol or illicit drugs. Physical Exam Vital Signs Vital Signs Date Time Temp Pulse Resp B/P (MAP) Pulse Ox O2 Delivery O2 Flow Rate FiO2 08/01/17 12:00 87 08/01/17 07:00 96 08/01/17 07:00 98.7 112 18 141/71 (94) 98 08/01/17 06:00 104 08/01/17 05:00 99 08/01/17 04:00 98.3 98 20 129/78 (95) 96 08/01/17 04:00 95 08/01/17 03:00 93 08/01/17 02:00 95 08/01/17 01:00 107 08/01/17 00:00 97.4 107 18 130/77 (94) 98 08/01/17 00:00 105 07/31/17 23:00 105 07/31/17 22:00 117 07/31/17 21:00 110 07/31/17 20:00 97.9 109 20 169/98 (121) 98 07/31/17 20:00 107 07/31/17 19:00 112 07/31/17 16:00 89 07/31/17 16:00 98.6 78 18 150/84 (106) 96 07/31/17 14:04 98.2 78 17 147/78 (101) 97 07/31/17 13:30 98.8 120 18 173/75 (107) 95 Physical Exam GENERAL: Well developed man in Moderate respiratory distress. SKIN: No rashes, ecchymoses or lesions. Cool and dry. HEAD: Atraumatic. Normocephalic.. EYES: Pupils equal round and reactive. Extraocular motions intact. No scleral icterus. No injection or drainage. ENT: Nose without bleeding, purulent drainage or septal hematoma. Throat without erythema, tonsillar hypertrophy or exudate. Uvula midline. Airway patent. NECK: Trachea midline. No JVD or lymphadenopathy. Supple, nontender, no meningeal signs. CARDIOVASCULAR: Regular rate and rhythm without murmurs, gallops, or rubs. RESPIRATORY: Severe Decreased breath sounds bilateral, expiratory wheezing, no crackles. GASTROINTESTINAL: Abdomen soft, non-tender, nondistended. No hepato-splenomegaly , or palpable masses. No guarding. MUSCULOSKELETAL: Extremities without clubbing, cyanosis, or edema. NEUROLOGICAL: Awake and alert. Normal speech. Laboratory Laboratory Tests Test 08/01/17 03:37 White Blood Count 19.0 Red Blood Count 4.88 Hemoglobin 15.6 Hematocrit 46.5 Mean Corpuscular Volume 95.2 Mean Corpuscular Hemoglobin 31.9 Mean Corpuscular Hemoglobin Concent 33.5 Red Cell Distribution Width 14.8 Platelet Count 354 Mean Platelet Volume 9.2 Neutrophils (%) (Auto) 85.7 Lymphocytes (%) (Auto) 6.2 Monocytes (%) (Auto) 7.3 Eosinophils (%) (Auto) 0.3 Basophils (%) (Auto) 0.5 Neutrophils # (Auto) 16.3 Lymphocytes # (Auto) 1.2 Monocytes # (Auto) 1.4 Eosinophils # (Auto) 0.1 Basophils # (Auto) 0.1 CBC Comment DIFF FINAL Differential Comment Blood Urea Nitrogen 30 Creatinine 1.65 Random Glucose 149 Calcium Level 8.9 Sodium Level 137 Potassium Level 4.0 Chloride Level 103 Carbon Dioxide Level 21.4 Anion Gap 13 Estimat Glomerular Filtration Rate 40 Triglycerides Level 85 Cholesterol Level 109 LDL Cholesterol 57 HDL Cholesterol 35.5 Cholesterol/HDL Ratio 3.07 Result Diagram: 08/01/177 08/01/17336 Imaging Last Impressions Chest X-Ray 07/31/17 1044 Signed Impressions: Service Date/Time: Monday, July 31, 2017 10:54 - CONCLUSION: 1. Stable left lung base atelectasis. 2. No acute abnormality or significant interval change. Gage Langley MD Assessment and Plan Assessment and Plan 1. STEMI in a patient with CAD and status post recent PCI and stent placement to the Right Coronary artery, due to acute in stent thrombosis for Doctor Venkat is clear the patient is compliant with Plavix and he is non responder to Plavix, Status post Cardiac Catheterization 1937, had Left heart catheterization, Selective Right and left Coronary angiography, Selective left common femoral artery angiography, due to ST segment elevation [place], acute stent thrombosis, found Acute stent thrombosis of the recently placed right coronary artery stent with successful opening of the vessel with [place] Balloon Angioplasty, by Doctor Shawn Robledo, today I was consulted for Medical Management. by Doctor Robledo. 2. COPD exacerbated to continue Bronchodilator, Mucolytic and incentive spirometry, already on Levaquin to continue, 3. Lung mass followed by his Primary Care Physician. is not been compliant with follow up recommended by PCP 4. Hypertension controlled 5. Hyperlipidemia to continue High intensity Statin management 6. DM II continue sliding scale and diet ADA 1800 cals. 7. Obesity strongly recommended diet and exercise 8. Heavy Tobacco dependence until two years ago. Appreciated Doctor Shawn Flynn for giving the opportunity to take care of this pleasant patient Discussed Condition With Patient and nurse Miss Oviedo, all questions answered to the best of my abilities. Code Status Once cleared by employee placement specialist. Anival Galnido MD Aug 01, 2017 1:27 pm
[2017-08-01] MEDS ORDERED: methylPREDNISolone SOD SUCC 125 MG/2 ML VIAL IV PUSH ONE (14:30)
[2017-08-01] MEDS: RESP: BUDESONIDE 0.5 MG/2 ML NEB NEB SCH ×2 (14:40→20:49)
[2017-08-01] MEDS ORDERED: GLUCAGON 1 MG/ML VIAL OTHER PRN (14:45)
[2017-08-01] MEDS ORDERED: DEXTROSE 50% IN WATER 50 ML VIAL(D50) IV PUSH PRN (14:45)
[2017-08-01] MEDS: guaiFENesin E.R. 600 MG TAB PO SCH ×2 (15:14→21:22)
[2017-08-01] MEDS: RESP: ALBUTEROL 2.5 MG/IPRATROPIUM 0.5 MG NEB (SCH) NEB ×3 (16:00→23:46)
[2017-08-01] MEDS: INSULIN NovoLIN REGULAR SUPPLEMENTAL SCALE SQ SCH ×2 (17:00→21:27)
[2017-08-01] MEDS: SODIUM CHLORIDE 0.9% FLUSH 10 ML FLUSH IVF PRN (21:21)
[2017-08-01] MEDS: ATORVASTATIN 80 MG TAB PO SCH (21:22)
[2017-08-02] VITALS (26 sets, daily range): BP systolic 108–135; BP diastolic 60–75; PULSE 52–106; RESP 16–18; TEMP 97.5–98.1; O2SAT 95–100
[2017-08-02] MEDS: RESP: ALBUTEROL 2.5 MG/IPRATROPIUM 0.5 MG NEB (SCH) NEB ×6 (02:47→23:26)
[2017-08-02] MEDS: RESP: IPRATROPIUM 0.5 MG/2.5 ML NEB NEB SCH ×3 (02:47→22:00)
[2017-08-02] MEDS: ISOSORBIDE MONONITRATE 30 MG TAB PO SCH (05:36)
--- NOTE | 2017-08-02 06:33 | PD.CARD.PN ---
Subjective Subjective Remarks No chest pain SOB improved Objective Medications Current Medications Medications (Trade) Dose Ordered Sig/Maury Route Start Time Stop Time Status Last Admin (Tylenol) 325 mg Q4H PRN PO 07/31/17 12:30 (Aspirin Chew) 81 mg DAILY PO 08/01/17 09:00 08/01/17 08:22 (Brilinta) 90 mg BID PO 08/01/17 09:00 08/01/17 21:22 (Atropine Inj) 0.5 mg UNSCH PRN IV PUSH 07/31/17 12:30 (Zofran Inj) 4 mg Q4H PRN IV PUSH 07/31/17 12:30 (Prinivil) 5 mg DAILY PO 08/01/17 09:00 08/01/17 08:22 (NS Flush) 2 ml UNSCH PRN IVF 07/31/17 18:00 08/01/17 21:21 (Lipitor) 80 mg HS PO 08/01/17 21:00 08/01/17 21:22 (Coreg) 6.25 mg BID PO 08/01/17 09:00 08/01/17 21:22 (Imdur) 30 mg DAILY@07 PO 08/02/17 07:00 08/02/17 05:36 (Atrovent Neb) 0.5 mg Q6HR NEB NEB 08/01/17 10:00 08/02/17 02:47 (Levaquin) 250 mg DAILY PO 08/02/17 09:00 (Duoneb Neb) 1 ampule Q4HR NEB NEB 08/01/17 16:00 08/02/17 02:47 (Pulmicort Respule Neb) 0.5 mg Q12HR NEB NEB 08/01/17 14:40 08/01/17 20:49 (Mucinex Er) 600 mg BID PO 08/01/17 14:30 08/01/17 21:22 (NovoLIN R SUPPLEMENTAL SCALE) 1 ACHS SLIDING SCALE SQ 08/01/17 17:00 08/01/17 21:27 (D50w (Vial) Inj) 50 ml UNSCH PRN IV PUSH 08/01/17 14:45 (Glucagon Inj) 1 mg UNSCH PRN OTHER 08/01/17 14:45 Vital Signs / I&O Vital Signs Date Time Temp Pulse Resp B/P (MAP) Pulse Ox O2 Delivery O2 Flow Rate FiO2 08/02/17 06:00 94 08/02/17 05:00 94 08/02/17 04:24 89 18 132/75 (94) 97 08/02/17 04:00 90 08/02/17 03:00 89 08/02/17 02:00 92 08/02/17 01:00 90 08/02/17 00:00 88 08/01/17 23:55 97 18 129/63 (85) 96 08/01/17 23:00 88 08/01/17 22:00 92 08/01/17 21:00 100 08/01/17 20:00 92 08/01/17 19:00 97.9 92 18 121/75 (90) 98 08/01/17 19:00 93 08/01/17 16:13 98 Nasal Cannula 3.00 08/01/17 15:00 97.5 88 20 119/65 (83) 99 08/01/17 15:00 90 08/01/17 12:00 87 08/01/17 11:00 97.4 85 18 108/62 (77) 100 08/01/17 07:00 96 08/01/17 07:00 98.7 112 18 141/71 (94) 98 I/O 08/01/17 08/01/17 08/01/17 08/02/17 08/02/17 08/02/17 07:00 15:00 23:00 07:00 15:00 23:00 Intake Total 240 ml 650 ml 400 ml Output Total 1275 ml 500 ml 300 ml Balance -1035 ml 150 ml 100 ml Intake Oral 240 ml 650 ml 400 ml Output Urine Total 1275 ml 500 ml 300 ml # Voids 2 1 # Bowel Movements 0 0 0 Physical Exam GENERAL: Well-nourished, well-developed patient. SKIN: Warm and dry. HEAD: Normocephalic. EYES: No scleral icterus. No injection or drainage. NECK: Supple, trachea midline. No JVD or lymphadenopathy. CARDIOVASCULAR: Regular rate and rhythm without murmurs, gallops, or rubs. RESPIRATORY: Breath sounds equal bilaterally. No accessory muscle use. GASTROINTESTINAL: Abdomen soft, non-tender, nondistended. EXTREMITIES: No cyanosis, or edema. NEUROLOGICAL: Awake, alert, and oriented x 3. Non-focal. Laboratory Laboratory Tests Test 08/02/17 05:45 Imaging Last Impressions Chest X-Ray 07/31/17 1044 Signed Impressions: Service Date/Time: Monday, July 31, 2017 10:54 - CONCLUSION: 1. Stable left lung base atelectasis. 2. No acute abnormality or significant interval change. Gage Langley MD Assessment and Plan Problem List: (1) STEMI (ST elevation myocardial infarction) ICD Codes: I21.3 - STEMI (ST elevation myocardial infarction) Status: Acute Plan: Cont DAPT with ASA and Brilinta BB, statin, Imdur Hold ACEi due to HOMERO Avoid electrolytes abnormalities 2decho encourage out of bed, ambulation and incentive spirometry COPD exacerbation management per Hosp (2) Leukocytosis ICD Codes: D72.829 - Leukocytosis Status: Acute (3) Shortness of breath ICD Codes: R06.02 - Shortness of breath Status: Resolved (4) Unsteady gait ICD Codes: R26.81 - Unsteadiness on feet (5) Ischemic cardiomyopathy ICD Codes: I25.5 - Ischemic cardiomyopathy Status: Chronic (6) COPD (chronic obstructive pulmonary disease) ICD Codes: J44.9 - Chronic obstructive pulmonary disease, unspecified Status: Chronic Problem Qualifiers (1) STEMI (ST elevation myocardial infarction): Qualified Codes: I21.3 - ST elevation (STEMI) myocardial infarction of unspecified site Shawn Funk MD Aug 02, 2017 06:33
[2017-08-02 06:41] LABS: BICARBONATE 19.7 MEQ/L (21.0-32.0); POTASSIUM 3.9 MEQ/L (3.5-5.1)
[2017-08-02] MEDS: INSULIN NovoLIN REGULAR SUPPLEMENTAL SCALE SQ SCH ×4 (08:00→21:00)
[2017-08-02] MEDS: RESP: BUDESONIDE 0.5 MG/2 ML NEB NEB SCH ×2 (08:19→20:25)
[2017-08-02] MEDS: LEVOFLOXACIN 250 MG TAB PO SCH (09:49)
[2017-08-02] MEDS: ASPIRIN 81 MG CHEW TAB PO SCH (09:49)
[2017-08-02] MEDS: guaiFENesin E.R. 600 MG TAB PO SCH ×2 (09:49→22:55)
[2017-08-02] MEDS: TICAGRELOR 90 MG TAB PO SCH ×2 (09:49→22:56)
[2017-08-02] MEDS: CARVEDILOL 6.25 MG TAB PO SCH ×2 (09:49→22:55)
--- NOTE | 2017-08-02 10:41 | HHI.PR ---
Subjective Remarks This is a pleasant 82 y/o male with Medical history significant for COPD, CAD, Hypertension, who came to ER with chest pain, dizziness and shortness of breath. found inferior SC. Status post Cardiac Catheterization 1937, had Left heart catheterization, Selective Right and left Coronary angiography, Selective left common femoral artery angiography, due to ST segment elevation SC, acute stent thrombosis, found Acute stent thrombosis of the recently placed right coronary artery stent with successful opening of the vessel with POBA, by Doctor Shawn Robledo, today I was consulted for Medical Management. by Doctor Robledo. At this time seen in his bedroom in moderate respiratory distress, has expiratory wheezing, started on Solu-Medrol Duoneb treatment, Budesonide, Mucinex and incentive spirometry, already given Levaquin by Doctor Robledo. 08/02: stable seen in his bedroom and discussed with Nurse Miss Amaya, patient stable will have 2D echocardiogram later today, no nausea, vomit or diarrhea, improving respiratory status, no nausea, vomit or diarrhea. Objective Vital Signs Date Time Temp Pulse Resp B/P (MAP) Pulse Ox O2 Delivery O2 Flow Rate FiO2 08/02/17 08:19 95 Nasal Cannula 2.00 08/02/17 06:00 94 08/02/17 05:00 94 08/02/17 04:24 89 18 132/75 (94) 97 08/02/17 04:00 90 08/02/17 03:00 89 08/02/17 02:00 92 08/02/17 01:00 90 08/02/17 00:00 88 08/01/17 23:55 97 18 129/63 (85) 96 08/01/17 23:00 88 08/01/17 22:00 92 08/01/17 21:00 100 08/01/17 20:00 92 08/01/17 19:00 97.9 92 18 121/75 (90) 98 08/01/17 19:00 93 08/01/17 16:13 98 Nasal Cannula 3.00 08/01/17 15:00 97.5 88 20 119/65 (83) 99 08/01/17 15:00 90 08/01/17 12:00 87 08/01/17 11:00 97.4 85 18 108/62 (77) 100 I/O 10/7/17 10/708/01/17 08/02/17 08/02/17 08/02/17 07:00 15:00 23:00 07:00 15:00 23:00 Intake Total 240 ml 650 ml 400 ml Output Total 1275 ml 500 ml 300 ml Balance -1035 ml 150 ml 100 ml Intake Oral 240 ml 650 ml 400 ml Output Urine Total 1275 ml 500 ml 300 ml # Voids 2 1 # Bowel Movements 0 0 0 Result Diagram: 08/01/17 0337 08/02/17 0545 Imaging Last Impressions Chest X-Ray 07/31/17 1044 Signed Impressions: Service Date/Time: Monday, July 31, 2017 10:54 - CONCLUSION: 1. Stable left lung base atelectasis. 2. No acute abnormality or significant interval change. Gage Langley MD Procedures 1937, had Left heart catheterization, Selective Right and left Coronary angiography, Selective left common femoral artery angiography, due to ST segment elevation [place], acute stent thrombosis, found Acute stent thrombosis of the recently placed right coronary artery stent with successful opening of the vessel with Plain [place] Balloon Angioplasty. Other Results Laboratory Tests Test 07/31/17 10:48 08/01/17 03:37 08/02/17 05:45 Prothrombin Time 12.0 SEC Prothromb Time International Ratio 1.1 RATIO Activated Partial Thromboplast Time 29.3 SEC Blood Urea Nitrogen 27 MG/DL 46 MG/DL Creatinine 1.60 MG/DL 1.65 MG/DL Random Glucose 162 MG/DL 174 MG/DL Calcium Level 9.3 MG/DL 9.1 MG/DL Magnesium Level 2.2 MG/DL Sodium Level 137 MEQ/L 137 MEQ/L Potassium Level 4.4 MEQ/L 3.9 MEQ/L Chloride Level 104 MEQ/L 106 MEQ/L Carbon Dioxide Level 20.1 MEQ/L 19.7 MEQ/L Total Creatine Kinase 30 U/L Troponin I 0.03 NG/ML White Blood Count 19.0 TH/MM3 Red Blood Count 4.88 MIL/MM3 Hemoglobin 15.6 GM/DL Hematocrit 46.5 % Mean Corpuscular Volume 95.2 FL Mean Corpuscular Hemoglobin 31.9 PG Mean Corpuscular Hemoglobin Concent 33.5 % Red Cell Distribution Width 14.8 % Platelet Count 354 TH/MM3 Mean Platelet Volume 9.2 FL Neutrophils (%) (Auto) 85.7 % Lymphocytes (%) (Auto) 6.2 % Monocytes (%) (Auto) 7.3 % Eosinophils (%) (Auto) 0.3 % Basophils (%) (Auto) 0.5 % Neutrophils # (Auto) 16.3 TH/MM3 Lymphocytes # (Auto) 1.2 TH/MM3 Monocytes # (Auto) 1.4 TH/MM3 Eosinophils # (Auto) 0.1 TH/MM3 Basophils # (Auto) 0.1 TH/MM3 CBC Comment DIFF FINAL Differential Comment Triglycerides Level 85 MG/DL Cholesterol Level 109 MG/DL LDL Cholesterol 57 MG/DL HDL Cholesterol 35.5 MG/DL Cholesterol/HDL Ratio 3.07 RATIO Anion Gap 11 MEQ/L Estimat Glomerular Filtration Rate 40 ML/MIN Objective Remarks GENERAL: Well developed man in Moderate respiratory distress. SKIN: No rashes, ecchymoses or lesions. Cool and dry. HEAD: Atraumatic. Normocephalic.. EYES: Pupils equal round and reactive. Extraocular motions intact. No scleral icterus. No injection or drainage. ENT: Nose without bleeding, purulent drainage or septal hematoma. Throat without erythema, tonsillar hypertrophy or exudate. Uvula midline. Airway patent. NECK: Trachea midline. No JVD or lymphadenopathy. Supple, nontender, no meningeal signs. CARDIOVASCULAR: Regular rate and rhythm without murmurs, gallops, or rubs. RESPIRATORY: Severe Decreased breath sounds bilateral, Mild expiratory wheezing , no crackles. GASTROINTESTINAL: Abdomen soft, non-tender, nondistended. No hepato-splenomegaly , or palpable masses. No guarding. MUSCULOSKELETAL: Extremities without clubbing, cyanosis, or edema. NEUROLOGICAL: Awake and alert. Normal speech. Medications and IVs Current Medications Medications (Trade) Dose Ordered Sig/Maury Route Start Time Stop Time Status Last Admin (Tylenol) 325 mg Q4H PRN PO 07/31/17 12:30 (Aspirin Chew) 81 mg DAILY PO 08/01/17 09:00 08/02/17 09:49 (Brilinta) 90 mg BID PO 08/01/17 09:00 08/02/17 09:49 (Atropine Inj) 0.5 mg UNSCH PRN IV PUSH 07/31/17 12:30 (Zofran Inj) 4 mg Q4H PRN IV PUSH 07/31/17 12:30 (Prinivil) 5 mg DAILY PO 08/01/17 09:00 Future Hold 08/01/17 08:22 (NS Flush) 2 ml UNSCH PRN IVF 07/31/17 18:00 08/01/17 21:21 (Lipitor) 80 mg HS PO 08/01/17 21:00 08/01/17 21:22 (Coreg) 6.25 mg BID PO 08/01/17 09:00 08/02/17 09:49 (Imdur) 30 mg DAILY@07 PO 08/02/17 07:00 08/02/17 05:36 (Atrovent Neb) 0.5 mg Q6HR NEB NEB 08/01/17 10:00 08/02/17 02:47 (Levaquin) 250 mg DAILY PO 08/02/17 09:00 08/02/17 09:49 (Duoneb Neb) 1 ampule Q4HR NEB NEB 08/01/17 16:00 08/02/17 08:19 (Pulmicort Respule Neb) 0.5 mg Q12HR NEB NEB 08/01/17 14:40 08/02/17 08:19 (Mucinex Er) 600 mg BID PO 08/01/17 14:30 08/02/17 09:49 (NovoLIN R SUPPLEMENTAL SCALE) 1 ACHS SLIDING SCALE SQ 08/01/17 17:00 08/02/17 08:00 (D50w (Vial) Inj) 50 ml UNSCH PRN IV PUSH 08/01/17 14:45 (Glucagon Inj) 1 mg UNSCH PRN OTHER 08/01/17 14:45 A/P Assessment and Plan 1. STEMI in a patient with CAD and status post recent PCI and stent placement to the Right Coronary artery, due to acute in stent thrombosis for Doctor Venkat is clear the patient is compliant with Plavix and he is non responder to Plavix, Status post Cardiac Catheterization 1937, had Left heart catheterization, Selective Right and left Coronary angiography, Selective left common femoral artery angiography, due to ST segment elevation [place], acute stent thrombosis, found Acute stent thrombosis of the recently placed right coronary artery stent with successful opening of the vessel with [place] Balloon Angioplasty, stable in his bedroom will have Echocardiogram later today. 2. COPD exacerbated to continue Bronchodilator, Mucolytic and incentive spirometry, already on Levaquin to continue, will try to keep him off Systemic Steroids today he had one dose of Solu-Medrol yesterday. improving condition, encourage Ambulation as recommended also by radiator specialist, asked for PT evaluation 3. Lung mass followed by his Primary Care Physician. is not been compliant with follow up recommended by PCP 4. Hypertension controlled 5. Hyperlipidemia to continue High intensity Statin management 6. DM II continue sliding scale and diet ADA 1800 cals. 7. Obesity strongly recommended diet and exercise 8. Heavy Tobacco dependence until two years ago. 9. CKD III with Mild Acute Kidney Injury, on hold EDISON inhibitors. stable Discussed Condition With Patient and nurse Miss Amaya, all questions answered to the best of my abilities. Code Status Full Code. Discharge Planning Once cleared by radiator specialist. Anival Galindo MD Aug 02, 2017 10:41
--- NOTE | 2017-08-02 13:15 | ECHRPT ---
Indication: ef chf CONCLUSIONS Normal left ventricular size. Wall thickness is normal. The left ventricular systolic function is severely reduced with an estimated ejection fraction less than 20%. There is diffuse global hypokinesis with distinct regional wall motion abnormalities. The right ventricular systoilc function is moderately decreased. Mitral annular calcification is present. Aortic valve sclerosis is present. The pulmonary valve is not well visualized. BP: / HR: Rhythm: MEASUREMENTS (Male / Female) Normal Values Technical Quality:Technically difficult study 2D ECHO LV Diastolic Diameter PLAX 4.5 cm 4.2 - 5.9 / 3.9 - 5.3 cm LV Systolic Diameter PLAX 4.3 cm IVS Diastolic Thickness 1.1 cm 0.6 - 1.0 / 0.6 - 0.9 cm LVPW Diastolic Thickness 0.8 cm 0.6 - 1.0 / 0.6 - 0.9 cm LV Relative Wall Thickness 0.4 DOPPLER TR Peak Velocity 221.0 cm/s TR Peak Gradient 19.5 mmHg FINDINGS LEFT VENTRICLE Normal left ventricular size. Wall thickness is normal. The left ventricular systolic function is severely reduced with an estimated ejection fraction less than 20%. There is diffuse global hypokinesis with distinct regional wall motion abnormalities. RIGHT VENTRICLE The right ventricular systoilc function is moderately decreased. LEFT ATRIUM The left atrial size is normal. RIGHT ATRIUM The right atrial size is normal. ATRIAL SEPTUM Normal atrial septal thickness without atrial level shunting by limited color doppler interrogation. AORTA The aortic root and proximal ascending aorta are normal in size on limited imaging. MITRAL VALVE Mitral annular calcification is present. AORTIC VALVE Aortic valve sclerosis is present. TRICUSPID VALVE Structurally normal tricuspid valve. No tricuspid valve stenosis or regurgitation. PULMONARY VALVE The pulmonary valve is not well visualized. VESSELS The inferior vena cava is normal in size. PERICARDIUM No pericardial effusion. Shawn Funk MD (Electronically Signed) Final Date:02 August 2017 13:14
[2017-08-02] MEDS: ATORVASTATIN 80 MG TAB PO SCH (22:55)
[2017-08-03] VITALS (26 sets, daily range): BP systolic 96–127; BP diastolic 60–86; PULSE 73–102; RESP 18–20; TEMP 97.3–97.8; O2SAT 95–97
[2017-08-03] MEDS: RESP: ALBUTEROL 2.5 MG/IPRATROPIUM 0.5 MG NEB (SCH) NEB ×6 (03:36→23:50)
[2017-08-03] MEDS: ISOSORBIDE MONONITRATE 30 MG TAB PO SCH (06:04)
[2017-08-03] MEDS: INSULIN NovoLIN REGULAR SUPPLEMENTAL SCALE SQ SCH ×4 (08:00→21:00)
[2017-08-03] MEDS: RESP: BUDESONIDE 0.5 MG/2 ML NEB NEB SCH ×2 (08:01→20:35)
[2017-08-03] MEDS: LEVOFLOXACIN 250 MG TAB PO SCH (08:55)
[2017-08-03] MEDS: CARVEDILOL 6.25 MG TAB PO SCH ×2 (08:56→20:13)
[2017-08-03] MEDS: ASPIRIN 81 MG CHEW TAB PO SCH (08:57)
[2017-08-03] MEDS: guaiFENesin E.R. 600 MG TAB PO SCH ×2 (08:57→20:13)
[2017-08-03] MEDS: TICAGRELOR 90 MG TAB PO SCH ×2 (09:46→20:13)
--- NOTE | 2017-08-03 11:45 | PD.CARD.PN ---
Subjective Subjective Remarks no cv complaints Objective Medications Current Medications Medications (Trade) Dose Ordered Sig/Maury Route Start Time Stop Time Status Last Admin (Tylenol) 325 mg Q4H PRN PO 07/31/17 12:30 (Aspirin Chew) 81 mg DAILY PO 08/01/17 09:00 08/03/17 08:57 (Brilinta) 90 mg BID PO 08/01/17 09:00 08/03/17 09:46 (Atropine Inj) 0.5 mg UNSCH PRN IV PUSH 07/31/17 12:30 (Zofran Inj) 4 mg Q4H PRN IV PUSH 07/31/17 12:30 (Prinivil) 5 mg DAILY PO 08/01/17 09:00 Future Hold 08/01/17 08:22 (NS Flush) 2 ml UNSCH PRN IVF 07/31/17 18:00 08/01/17 21:21 (Lipitor) 80 mg HS PO 08/01/17 21:00 08/02/17 22:55 (Coreg) 6.25 mg BID PO 08/01/17 09:00 08/03/17 08:56 (Imdur) 30 mg DAILY@07 PO 08/02/17 07:00 08/03/17 06:04 (Atrovent Neb) 0.5 mg Q6HR NEB NEB 08/01/17 10:00 08/02/17 02:47 (Levaquin) 250 mg DAILY PO 08/02/17 09:00 08/03/17 08:55 (Duoneb Neb) 1 ampule Q4HR NEB NEB 08/01/17 16:00 08/03/17 08:01 (Pulmicort Respule Neb) 0.5 mg Q12HR NEB NEB 08/01/17 14:40 08/03/17 08:01 (Mucinex Er) 600 mg BID PO 08/01/17 14:30 08/03/17 08:57 (NovoLIN R SUPPLEMENTAL SCALE) 1 ACHS SLIDING SCALE SQ 08/01/17 17:00 08/02/17 18:14 (D50w (Vial) Inj) 50 ml UNSCH PRN IV PUSH 08/01/17 14:45 (Glucagon Inj) 1 mg UNSCH PRN OTHER 08/01/17 14:45 Vital Signs / I&O Vital Signs Date Time Temp Pulse Resp B/P (MAP) Pulse Ox O2 Delivery O2 Flow Rate FiO2 08/03/17 06:09 82 08/03/17 05:22 73 08/03/17 04:22 82 08/03/17 03:34 97.8 77 18 96/60 (72) 95 08/03/17 03:00 86 08/03/17 02:00 76 08/03/17 01:00 78 08/02/17 23:00 98.1 52 18 135/71 (92) 96 08/02/17 23:00 87 08/02/17 21:00 80 08/02/17 20:26 96 21 08/02/17 20:00 83 08/02/17 19:00 97.5 85 18 120/68 (85) 100 08/02/17 19:00 90 08/02/17 18:00 94 08/02/17 17:00 80 08/02/17 16:00 82 08/02/17 15:00 86 08/02/17 15:00 97.9 91 16 115/60 (78) 95 08/02/17 14:00 88 08/02/17 13:00 90 08/02/17 12:00 98 I/O 08/02/17 08/02/17 08/02/17 08/03/17 08/03/17 08/03/17 07:00 15:00 23:00 07:00 15:00 23:00 Intake Total 400 ml 480 ml 240 ml Output Total 300 ml 75 ml 200 ml Balance 100 ml 405 ml 40 ml Intake Oral 400 ml 480 ml 240 ml Output Urine Total 300 ml 75 ml 200 ml # Voids 1 1 # Bowel Movements 0 0 Physical Exam GENERAL: Well-nourished, well-developed patient. SKIN: Warm and dry. HEAD: Normocephalic. EYES: No scleral icterus. No injection or drainage. NECK: Supple, trachea midline. No JVD or lymphadenopathy. CARDIOVASCULAR: Regular rate and rhythm without murmurs, gallops, or rubs. RESPIRATORY: Breath sounds equal bilaterally. No accessory muscle use. GASTROINTESTINAL: Abdomen soft, non-tender, nondistended. EXTREMITIES: No cyanosis, or edema. NEUROLOGICAL: Awake, alert, and oriented x 3. Non-focal. Assessment and Plan Problem List: (1) STEMI (ST elevation myocardial infarction) ICD Codes: I21.3 - STEMI (ST elevation myocardial infarction) Status: Acute Plan: Cont DAPT with ASA and Brilinta BB, statin, Imdur Hold ACEi due to HOMERO Avoid electrolytes abnormalities encourage out of bed, ambulation and incentive spirometry COPD exacerbation management per Hosp Stable from CV standpoint to d/c home/rehab LifeVest upon discharge (2) Leukocytosis ICD Codes: D72.829 - Leukocytosis Status: Acute (3) Shortness of breath ICD Codes: R06.02 - Shortness of breath Status: Resolved (4) Unsteady gait ICD Codes: R26.81 - Unsteadiness on feet (5) Ischemic cardiomyopathy ICD Codes: I25.5 - Ischemic cardiomyopathy Status: Chronic (6) COPD (chronic obstructive pulmonary disease) ICD Codes: J44.9 - Chronic obstructive pulmonary disease, unspecified Status: Chronic Problem Qualifiers (1) STEMI (ST elevation myocardial infarction): Qualified Codes: I21.3 - ST elevation (STEMI) myocardial infarction of unspecified site Shawn Funk MD Aug 03, 2017 11:45
--- NOTE | 2017-08-03 15:16 | HHI.PR ---
Subjective Remarks This is a pleasant 82 y/o male with Medical history significant for COPD, CAD, Hypertension, who came to ER with chest pain, dizziness and shortness of breath. found inferior VT. Status post Cardiac Catheterization 1937, had Left heart catheterization, Selective Right and left Coronary angiography, Selective left common femoral artery angiography, due to ST segment elevation [place], acute stent thrombosis, found Acute stent thrombosis of the recently placed right coronary artery stent with successful opening of the vessel with POBA, by Doctor Shawn Robledo, today I was consulted for Medical Management. by Doctor Robledo. At this time seen in his bedroom in moderate respiratory distress, has expiratory wheezing, started on Solu-Medrol Duoneb treatment, Budesonide, Mucinex and incentive spirometry, already given Levaquin by Doctor Robledo. 08/02: stable seen in his bedroom and discussed with Nurse Miss Amaya, patient stable will have 2D echocardiogram later today, no nausea, vomit or diarrhea, improving respiratory status, no nausea, vomit or diarrhea. 08/03: Stable in his bedroom, he states lives alone and Physical therapy recommended for home with [facility] for PT not recommended SNF, will follow with greenhouse manager was discussed with nurse Miss Gravesah and his family wants him going to SNF, also will need to get a LifeVest before discharge. no nausea, vomit or diarrhea, improving respiratory symptoms. Objective Vital Signs Date Time Temp Pulse Resp B/P (MAP) Pulse Ox O2 Delivery O2 Flow Rate FiO2 08/03/17 11:00 97.8 78 18 114/69 (84) 96 08/03/17 07:15 97.6 84 20 103/70 (81) 96 08/03/17 07:00 85 08/03/17 06:09 82 08/03/17 05:22 73 08/03/17 04:22 82 08/03/17 03:34 97.8 77 18 96/60 (72) 95 08/03/17 03:00 86 08/03/17 02:00 76 08/03/17 01:00 78 08/02/17 23:00 98.1 52 18 135/71 (92) 96 08/02/17 23:00 87 08/02/17 21:00 80 08/02/17 20:26 96 21 08/02/17 20:00 83 08/02/17 19:00 97.5 85 18 120/68 (85) 100 08/02/17 19:00 90 08/02/17 18:00 94 08/02/17 17:00 80 08/02/17 16:00 82 I/O 08/02/17 08/02/17 08/02/17 08/03/17 08/03/17 08/03/17 07:00 15:00 23:00 07:00 15:00 23:00 Intake Total 400 ml 480 ml 240 ml Output Total 300 ml 75 ml 200 ml Balance 100 ml 405 ml 40 ml Intake Oral 400 ml 480 ml 240 ml Output Urine Total 300 ml 75 ml 200 ml # Voids 1 1 # Bowel Movements 0 0 Result Diagram: 08/01/17 0337 08/02/17 0545 Imaging Last Impressions Chest X-Ray 07/31/17 1044 Signed Impressions: Service Date/Time: Monday, July 31, 2017 10:54 - CONCLUSION: 1. Stable left lung base atelectasis. 2. No acute abnormality or significant interval change. Gage Langley MD Procedures 1937, had Left heart catheterization, Selective Right and left Coronary angiography, Selective left common femoral artery angiography, due to ST segment elevation [place], acute stent thrombosis, found Acute stent thrombosis of the recently placed right coronary artery stent with successful opening of the vessel with [place] Balloon Angioplasty. Other Results Laboratory Tests Test 07/31/17 10:48 08/01/17 03:37 08/02/17 05:45 Prothrombin Time 12.0 SEC Prothromb Time International Ratio 1.1 RATIO Activated Partial Thromboplast Time 29.3 SEC Blood Urea Nitrogen 27 MG/DL 46 MG/DL Creatinine 1.60 MG/DL 1.65 MG/DL Random Glucose 162 MG/DL 174 MG/DL Calcium Level 9.3 MG/DL 9.1 MG/DL Magnesium Level 2.2 MG/DL Sodium Level 137 MEQ/L 137 MEQ/L Potassium Level 4.4 MEQ/L 3.9 MEQ/L Chloride Level 104 MEQ/L 106 MEQ/L Carbon Dioxide Level 20.1 MEQ/L 19.7 MEQ/L Total Creatine Kinase 30 U/L Troponin I 0.03 NG/ML White Blood Count 19.0 TH/MM3 Red Blood Count 4.88 MIL/MM3 Hemoglobin 15.6 GM/DL Hematocrit 46.5 % Mean Corpuscular Volume 95.2 FL Mean Corpuscular Hemoglobin 31.9 PG Mean Corpuscular Hemoglobin Concent 33.5 % Red Cell Distribution Width 14.8 % Platelet Count 354 TH/MM3 Mean Platelet Volume 9.2 FL Neutrophils (%) (Auto) 85.7 % Lymphocytes (%) (Auto) 6.2 % Monocytes (%) (Auto) 7.3 % Eosinophils (%) (Auto) 0.3 % Basophils (%) (Auto) 0.5 % Neutrophils # (Auto) 16.3 TH/MM3 Lymphocytes # (Auto) 1.2 TH/MM3 Monocytes # (Auto) 1.4 TH/MM3 Eosinophils # (Auto) 0.1 TH/MM3 Basophils # (Auto) 0.1 TH/MM3 CBC Comment DIFF FINAL Differential Comment Triglycerides Level 85 MG/DL Cholesterol Level 109 MG/DL LDL Cholesterol 57 MG/DL HDL Cholesterol 35.5 MG/DL Cholesterol/HDL Ratio 3.07 RATIO Anion Gap 11 MEQ/L Estimat Glomerular Filtration Rate 40 ML/MIN Objective Remarks GENERAL: Well developed man in Moderate respiratory distress. SKIN: No rashes, ecchymoses or lesions. Cool and dry. HEAD: Atraumatic. Normocephalic.. EYES: Pupils equal round and reactive. Extraocular motions intact. No scleral icterus. No injection or drainage. ENT: Nose without bleeding, purulent drainage or septal hematoma. Throat without erythema, tonsillar hypertrophy or exudate. Uvula midline. Airway patent. NECK: Trachea midline. No JVD or lymphadenopathy. Supple, nontender, no meningeal signs. CARDIOVASCULAR: Regular rate and rhythm without murmurs, gallops, or rubs. RESPIRATORY: Severe Decreased breath sounds bilateral, Mild expiratory wheezing , no crackles. GASTROINTESTINAL: Abdomen soft, non-tender, nondistended. No hepato-splenomegaly , or palpable masses. No guarding. MUSCULOSKELETAL: Extremities without clubbing, cyanosis, or edema. NEUROLOGICAL: Awake and alert. Normal speech. Medications and IVs Current Medications Medications (Trade) Dose Ordered Sig/Maruy Route Start Time Stop Time Status Last Admin (Tylenol) 325 mg Q4H PRN PO 07/31/17 12:30 (Aspirin Chew) 81 mg DAILY PO 08/01/17 09:00 08/03/17 08:57 (Brilinta) 90 mg BID PO 08/01/17 09:00 08/03/17 09:46 (Atropine Inj) 0.5 mg UNSCH PRN IV PUSH 07/31/17 12:30 (Zofran Inj) 4 mg Q4H PRN IV PUSH 07/31/17 12:30 (Prinivil) 5 mg DAILY PO 08/01/17 09:00 Future Hold 08/01/17 08:22 (NS Flush) 2 ml UNSCH PRN IVF 07/31/17 18:00 08/01/17 21:21 (Lipitor) 80 mg HS PO 08/01/17 21:00 08/02/17 22:55 (Coreg) 6.25 mg BID PO 08/01/17 09:00 08/03/17 08:56 (Imdur) 30 mg DAILY@07 PO 08/02/17 07:00 08/03/17 06:04 (Atrovent Neb) 0.5 mg Q6HR NEB NEB 08/01/17 10:00 08/02/17 02:47 (Levaquin) 250 mg DAILY PO 08/02/17 09:00 08/03/17 08:55 (Duoneb Neb) 1 ampule Q4HR NEB NEB 08/01/17 16:00 08/03/17 12:12 (Pulmicort Respule Neb) 0.5 mg Q12HR NEB NEB 08/01/17 14:40 08/03/17 08:01 (Mucinex Er) 600 mg BID PO 08/01/17 14:30 08/03/17 08:57 (NovoLIN R SUPPLEMENTAL SCALE) 1 ACHS SLIDING SCALE SQ 08/01/17 17:00 08/03/17 12:00 (D50w (Vial) Inj) 50 ml UNSCH PRN IV PUSH 08/01/17 14:45 (Glucagon Inj) 1 mg UNSCH PRN OTHER 08/01/17 14:45 A/P Assessment and Plan 1. STEMI in a patient with CAD and status post recent PCI and stent placement to the Right Coronary artery, due to acute in stent thrombosis for Doctor Venkat is clear the patient is compliant with Plavix and he is non responder to Plavix, Status post Cardiac Catheterization 1937, had Left heart catheterization, Selective Right and left Coronary angiography, Selective left common femoral artery angiography, due to ST segment elevation [place], acute stent thrombosis, found Acute stent thrombosis of the recently placed right coronary artery stent with successful opening of the vessel with [place] Balloon Angioplasty, status post Echocardiogram found EF less than 20% with global Hypokinesis recommended for LifeVest before discharge. 2. COPD exacerbated to continue Bronchodilator, Mucolytic and incentive spirometry, already on Levaquin to continue, will try to keep him off Systemic Steroids today he had one dose of Solu-Medrol yesterday. improving condition, encourage Ambulation as recommended also by email specialist, asked for PT evaluation 3. Lung mass followed by his Primary Care Physician. is not been compliant with follow up recommended by PCP 4. Hypertension controlled 5. Hyperlipidemia to continue High intensity Statin management 6. DM II continue sliding scale and diet ADA 1800 cals. 7. Obesity strongly recommended diet and exercise 8. Heavy Tobacco dependence until two years ago. 9. CKD III with Mild Acute Kidney Injury, on hold EDISON inhibitors. stable asked for new BMP if stable for discharge Home. Discussed Condition With Patient and nurse Miss Amaya, all questions answered to the best of my abilities. Code Status Full Code. Discharge Planning Once cleared by email specialist. Anival Galindo MD Aug 03, 2017 15:16
[2017-08-03 17:51] LABS: BICARBONATE 19.5 MEQ/L (21.0-32.0); POTASSIUM 4.2 MEQ/L (3.5-5.1)
[2017-08-03] MEDS: ATORVASTATIN 80 MG TAB PO SCH (20:13)
[2017-08-03] MEDS: RESP: IPRATROPIUM 0.5 MG/2.5 ML NEB NEB SCH (22:00)
[2017-08-04] VITALS (27 sets, daily range): BP systolic 116–146; BP diastolic 67–84; PULSE 75–96; RESP 16–20; TEMP 97–98.2; O2SAT 96–99
[2017-08-04] MEDS: RESP: ALBUTEROL 2.5 MG/IPRATROPIUM 0.5 MG NEB (SCH) NEB ×6 (04:00→23:57)
[2017-08-04] MEDS: RESP: IPRATROPIUM 0.5 MG/2.5 ML NEB NEB SCH (04:00)
[2017-08-04] MEDS: ISOSORBIDE MONONITRATE 30 MG TAB PO SCH (06:27)
[2017-08-04] MEDS: INSULIN NovoLIN REGULAR SUPPLEMENTAL SCALE SQ SCH ×4 (08:00→22:24)
[2017-08-04] MEDS: RESP: BUDESONIDE 0.5 MG/2 ML NEB NEB SCH ×2 (08:19→19:42)
[2017-08-04] MEDS: TICAGRELOR 90 MG TAB PO SCH ×2 (08:42→21:22)
[2017-08-04] MEDS: guaiFENesin E.R. 600 MG TAB PO SCH ×2 (08:42→21:22)
[2017-08-04] MEDS: CARVEDILOL 6.25 MG TAB PO SCH ×2 (08:43→21:22)
[2017-08-04] MEDS: SODIUM CHLORIDE 0.9% FLUSH 10 ML FLUSH IVF PRN (08:43)
[2017-08-04] MEDS: LEVOFLOXACIN 250 MG TAB PO SCH (08:43)
[2017-08-04] MEDS: ASPIRIN 81 MG CHEW TAB PO SCH (08:43)
--- NOTE | 2017-08-04 11:14 | HHI.PR ---
Subjective Remarks This is a pleasant 82 y/o male with Medical history significant for COPD, CAD, Hypertension, who came to ER with chest pain, dizziness and shortness of breath. found inferior CO. Status post Cardiac Catheterization 1937, had Left heart catheterization, Selective Right and left Coronary angiography, Selective left common femoral artery angiography, due to ST segment elevation CO, acute stent thrombosis, found Acute stent thrombosis of the recently placed right coronary artery stent with successful opening of the vessel with POBA, by Doctor Shawn Robledo, today I was consulted for Medical Management. by Doctor Robledo. At this time seen in his bedroom in moderate respiratory distress, has expiratory wheezing, started on Solu-Medrol Duoneb treatment, Budesonide, Mucinex and incentive spirometry, already given Levaquin by Doctor Robledo. 08/02: stable seen in his bedroom and discussed with Nurse Miss Amaya, patient stable will have 2D echocardiogram later today, no nausea, vomit or diarrhea, improving respiratory status, no nausea, vomit or diarrhea. 08/03: Stable in his bedroom, he states lives alone and Physical therapy recommended for home with [facility] for PT not recommended SNF, will follow with communication manager was discussed with nurse Miss Gravesah and his family wants him going to SNF, also will need to get a LifeVest before discharge. no nausea, vomit or diarrhea, improving respiratory symptoms. 08/04: Seen in his bedroom stable his creatinine increased asked for Nephrology specialist consulted. no nausea vomit or diarrhea. Objective Vital Signs Date Time Temp Pulse Resp B/P (MAP) Pulse Ox O2 Delivery O2 Flow Rate FiO2 08/04/17 08:43 80 08/04/17 07:00 82 08/04/17 07:00 97.5 82 16 131/75 (93) 97 08/04/17 06:00 76 08/04/17 05:00 76 08/04/17 04:00 79 08/04/17 04:00 97.0 87 20 145/84 (104) 97 08/04/17 03:00 96 08/04/17 02:00 78 08/04/17 01:00 78 08/04/17 00:00 97.7 79 20 146/74 (98) 96 08/04/17 00:00 76 08/03/17 23:00 78 08/03/17 22:00 82 08/03/17 21:00 86 08/03/17 20:38 95 08/03/17 20:00 97.3 88 20 126/86 (99) 97 08/03/17 20:00 97 08/03/17 19:00 102 08/03/17 18:00 88 08/03/17 17:00 90 08/03/17 16:00 80 08/03/17 15:00 97.7 82 18 127/77 (94) 97 08/03/17 15:00 79 08/03/17 14:00 78 08/03/17 13:00 86 08/03/17 12:00 82 I/O 08/03/17 08/03/17 08/03/17 08/04/17 08/04/17 08/04/17 07:00 15:00 23:00 07:00 15:00 23:00 Intake Total 240 ml 360 ml 240 ml Output Total 200 ml 350 ml 600 ml Balance 40 ml 10 ml -360 ml Intake Oral 240 ml 360 ml 240 ml Output Urine Total 200 ml 350 ml 600 ml Result Diagram: 08/01/17 0337 08/03/17 1643 Imaging Last Impressions Chest X-Ray 07/31/17 1044 Signed Impressions: Service Date/Time: Monday, July 31, 2017 10:54 - CONCLUSION: 1. Stable left lung base atelectasis. 2. No acute abnormality or significant interval change. Gage Langley MD Procedures 1937, had Left heart catheterization, Selective Right and left Coronary angiography, Selective left common femoral artery angiography, due to ST segment elevation CO, acute stent thrombosis, found Acute stent thrombosis of the recently placed right coronary artery stent with successful opening of the vessel with Plain Old Balloon Angioplasty. Other Results Laboratory Tests Test 07/31/17 10:48 08/01/17 03:37 08/03/17 16:43 Prothrombin Time 12.0 SEC Prothromb Time International Ratio 1.1 RATIO Activated Partial Thromboplast Time 29.3 SEC Blood Urea Nitrogen 27 MG/DL 65 MG/DL Creatinine 1.60 MG/DL 1.89 MG/DL Random Glucose 162 MG/DL 139 MG/DL Calcium Level 9.3 MG/DL 9.2 MG/DL Magnesium Level 2.2 MG/DL Sodium Level 137 MEQ/L 134 MEQ/L Potassium Level 4.4 MEQ/L 4.2 MEQ/L Chloride Level 104 MEQ/L 101 MEQ/L Carbon Dioxide Level 20.1 MEQ/L 19.5 MEQ/L Total Creatine Kinase 30 U/L Troponin I 0.03 NG/ML White Blood Count 19.0 TH/MM3 Red Blood Count 4.88 MIL/MM3 Hemoglobin 15.6 GM/DL Hematocrit 46.5 % Mean Corpuscular Volume 95.2 FL Mean Corpuscular Hemoglobin 31.9 PG Mean Corpuscular Hemoglobin Concent 33.5 % Red Cell Distribution Width 14.8 % Platelet Count 354 TH/MM3 Mean Platelet Volume 9.2 FL Neutrophils (%) (Auto) 85.7 % Lymphocytes (%) (Auto) 6.2 % Monocytes (%) (Auto) 7.3 % Eosinophils (%) (Auto) 0.3 % Basophils (%) (Auto) 0.5 % Neutrophils # (Auto) 16.3 TH/MM3 Lymphocytes # (Auto) 1.2 TH/MM3 Monocytes # (Auto) 1.4 TH/MM3 Eosinophils # (Auto) 0.1 TH/MM3 Basophils # (Auto) 0.1 TH/MM3 CBC Comment DIFF FINAL Differential Comment Triglycerides Level 85 MG/DL Cholesterol Level 109 MG/DL LDL Cholesterol 57 MG/DL HDL Cholesterol 35.5 MG/DL Cholesterol/HDL Ratio 3.07 RATIO Anion Gap 14 MEQ/L Estimat Glomerular Filtration Rate 34 ML/MIN Objective Remarks GENERAL: Well developed man in Moderate respiratory distress. SKIN: No rashes, ecchymoses or lesions. Cool and dry. HEAD: Atraumatic. Normocephalic.. EYES: Pupils equal round and reactive. Extraocular motions intact. No scleral icterus. No injection or drainage. ENT: Nose without bleeding, purulent drainage or septal hematoma. Throat without erythema, tonsillar hypertrophy or exudate. Uvula midline. Airway patent. NECK: Trachea midline. No JVD or lymphadenopathy. Supple, nontender, no meningeal signs. CARDIOVASCULAR: Regular rate and rhythm without murmurs, gallops, or rubs. RESPIRATORY: Severe Decreased breath sounds bilateral, Mild expiratory wheezing , no crackles. GASTROINTESTINAL: Abdomen soft, non-tender, nondistended. No hepato-splenomegaly , or palpable masses. No guarding. MUSCULOSKELETAL: Extremities without clubbing, cyanosis, or edema. NEUROLOGICAL: Awake and alert. Normal speech. Medications and IVs Current Medications Medications (Trade) Dose Ordered Sig/Maury Route Start Time Stop Time Status Last Admin (Tylenol) 325 mg Q4H PRN PO 07/31/17 12:30 (Aspirin Chew) 81 mg DAILY PO 08/01/17 09:00 08/04/17 08:43 (Brilinta) 90 mg BID PO 08/01/17 09:00 08/04/17 08:42 (Atropine Inj) 0.5 mg UNSCH PRN IV PUSH 07/31/17 12:30 (Zofran Inj) 4 mg Q4H PRN IV PUSH 07/31/17 12:30 (Prinivil) 5 mg DAILY PO 08/01/17 09:00 Future Hold 08/01/17 08:22 (NS Flush) 2 ml UNSCH PRN IVF 07/31/17 18:00 08/04/17 08:43 (Lipitor) 80 mg HS PO 08/01/17 21:00 08/03/17 20:13 (Coreg) 6.25 mg BID PO 08/01/17 09:00 08/04/17 08:43 (Imdur) 30 mg DAILY@07 PO 08/02/17 07:00 08/04/17 06:27 (Atrovent Neb) 0.5 mg Q6HR NEB NEB 08/01/17 10:00 08/02/17 02:47 (Levaquin) 250 mg DAILY PO 08/02/17 09:00 08/04/17 08:43 (Duoneb Neb) 1 ampule Q4HR NEB NEB 08/01/17 16:00 08/04/17 08:18 (Pulmicort Respule Neb) 0.5 mg Q12HR NEB NEB 08/01/17 14:40 08/04/17 08:19 (Mucinex Er) 600 mg BID PO 08/01/17 14:30 08/04/17 08:42 (NovoLIN R SUPPLEMENTAL SCALE) 1 ACHS SLIDING SCALE SQ 08/01/17 17:00 08/03/17 21:00 (D50w (Vial) Inj) 50 ml UNSCH PRN IV PUSH 08/01/17 14:45 (Glucagon Inj) 1 mg UNSCH PRN OTHER 08/01/17 14:45 A/P Assessment and Plan 1. STEMI in a patient with CAD and status post recent PCI and stent placement to the Right Coronary artery, due to acute in stent thrombosis for Doctor Venkat is clear the patient is compliant with Plavix and he is non responder to Plavix, Status post Cardiac Catheterization 1937, had Left heart catheterization, Selective Right and left Coronary angiography, Selective left common femoral artery angiography, due to ST segment elevation CO, acute stent thrombosis, found Acute stent thrombosis of the recently placed right coronary artery stent with successful opening of the vessel with Plain Old Balloon Angioplasty, status post Echocardiogram found EF less than 20% with global Hypokinesis recommended for LifeVest before discharge. 2. COPD exacerbated to continue Bronchodilator, Mucolytic and incentive spirometry, already on Levaquin to continue, will try to keep him off Systemic Steroids today he had one dose of Solu-Medrol yesterday. improving condition, encourage Ambulation as recommended also by corporate communications specialist, asked for PT evaluation 3. Lung mass followed by his Primary Care Physician. is not been compliant with follow up recommended by PCP 4. Hypertension controlled 5. Hyperlipidemia to continue High intensity Statin management 6. DM II continue sliding scale and diet ADA 1800 cals. 7. Obesity strongly recommended diet and exercise 8. Heavy Tobacco dependence until two years ago. 9. CKD III with Mild Acute Kidney Injury, on hold EDISON inhibitors. asked for BMP increasing Creatinine level asked for nephrology specialist. Discussed Condition With Patient and nurse Miss Amaya, all questions answered to the best of my abilities. Code Status Full Code. Discharge Planning Once cleared by Nephrology specialist. Anival Galindo MD Aug 04, 2017 11:14
--- NOTE | 2017-08-04 12:31 | PD.CONS ---
[facility] Service Nephrology Consult Requested By Reason for Consult Acute on chronic kidney disease Primary Care Physician Jase Lezama M.D. History of Present Illness Mr. Fong underwent PCI with stent placement to RCA on July 25, performed by Dr. Judd. Apparently this was a high risk procedure, performed after surgery was declined by the CT surgeons. Patient was readmitted on the with chest pain. He was diagnosed with STEMI. Creatinine was 1.6 on that day. He underwent cardiac catheterization which revealed in stent stenosis of the RCA stent. This was successfully reopened. Now he is on Aspirin and Brilinta. He is now considered to be a non responder to Plavix. Today his creatinine is 1.89. He appears to have stage III CKD, perhaps due to diabetic nephropathy. He does have proteinuria. Review of Systems Constitutional: COMPLAINS OF: Fatigue, DENIES: Fever Cardiovascular: COMPLAINS OF: Chest pain, Palpitations Gastrointestinal: DENIES: Abdominal pain, Black stools Musculoskeletal: DENIES: Joint pain Neurologic: DENIES: Localized weakness, Paresthesias Past Family Social History Allergies: Coded Allergies: No Known Allergies (Unverified , 07/19/17) Past Medical History COPD, coronary artery disease, hypertension PCI and stent placement Hyperlipidemia COPD CAD Hypertension DM II Urolithiasis Past Surgical History PCI and Stent placement Reported Medications Reported Medications Reported Meds & Active Scripts Active Aspirin Low Strength (Aspirin) 81 Mg Chew 81 Mg PO DAILY Metoprolol Tartrate 25 Mg Tab 12.5 Mg PO BID Atorvastatin (Atorvastatin Calcium) 40 Mg Tab 40 Mg PO HS Plavix (Clopidogrel Bisulfate) 75 Mg Tab 75 Mg PO DAILY Reported Vitamin D3 (Cholecalciferol) 1,000 Unit Cap 1,000 Units PO DAILY Isosorbide Mononitrate ER (Isosorbide Mononitrate) 60 Mg Tab 60 Mg PO DAILY Furosemide 20 Mg Tab 20 Mg PO DIRECTED Lisinopril 5 Mg Tab 5 Mg PO DAILY Amlodipine (Amlodipine Besylate) 5 Mg Tab 5 Mg PO DAILY Metformin (Metformin HCl) 1,000 Mg Tab 1,000 Mg PO DAILY With a meal Active Ordered Medications Current Medications Medications (Trade) Dose Ordered Sig/Maury Route Start Time Stop Time Status Last Admin (Tylenol) 325 mg Q4H PRN PO 07/31/17 12:30 (Aspirin Chew) 81 mg DAILY PO 08/01/17 09:00 08/04/17 08:43 (Brilinta) 90 mg BID PO 08/01/17 09:00 08/04/17 08:42 (Atropine Inj) 0.5 mg UNSCH PRN IV PUSH 07/31/17 12:30 (Zofran Inj) 4 mg Q4H PRN IV PUSH 07/31/17 12:30 (Prinivil) 5 mg DAILY PO 08/01/17 09:00 Future Hold 08/01/17 08:22 (NS Flush) 2 ml UNSCH PRN IVF 07/31/17 18:00 08/04/17 08:43 (Lipitor) 80 mg HS PO 08/01/17 21:00 08/03/17 20:13 (Coreg) 6.25 mg BID PO 08/01/17 09:00 08/04/17 08:43 (Imdur) 30 mg DAILY@07 PO 08/02/17 07:00 08/04/17 06:27 (Atrovent Neb) 0.5 mg Q6HR NEB NEB 08/01/17 10:00 08/02/17 02:47 (Levaquin) 250 mg DAILY PO 08/02/17 09:00 08/04/17 08:43 (Duoneb Neb) 1 ampule Q4HR NEB NEB 08/01/17 16:00 08/04/17 08:18 (Pulmicort Respule Neb) 0.5 mg Q12HR NEB NEB 08/01/17 14:40 08/04/17 08:19 (Mucinex Er) 600 mg BID PO 08/01/17 14:30 08/04/17 08:42 (NovoLIN R SUPPLEMENTAL SCALE) 1 ACHS SLIDING SCALE SQ 08/01/17 17:00 08/03/17 21:00 (D50w (Vial) Inj) 50 ml UNSCH PRN IV PUSH 08/01/17 14:45 (Glucagon Inj) 1 mg UNSCH PRN OTHER 08/01/17 14:45 Family History He is adopted. Social History Former smoker Physical Exam Vital Signs Vital Signs Date Time Temp Pulse Resp B/P (MAP) Pulse Ox O2 Delivery O2 Flow Rate FiO2 08/04/17 08:43 80 08/04/17 07:00 82 08/04/17 07:00 97.5 82 16 131/75 (93) 97 08/04/17 06:00 76 08/04/17 05:00 76 08/04/17 04:00 79 08/04/17 04:00 97.0 87 20 145/84 (104) 97 08/04/17 03:00 96 08/04/17 02:00 78 08/04/17 01:00 78 08/04/17 00:00 97.7 79 20 146/74 (98) 96 08/04/17 00:00 76 08/03/17 23:00 78 08/03/17 22:00 82 08/03/17 21:00 86 08/03/17 20:38 95 08/03/17 20:00 97.3 88 20 126/86 (99) 97 08/03/17 20:00 97 08/03/17 19:00 102 08/03/17 18:00 88 08/03/17 17:00 90 08/03/17 16:00 80 08/03/17 15:00 97.7 82 18 127/77 (94) 97 08/03/17 15:00 79 08/03/17 14:00 78 08/03/17 13:00 86 Physical Exam GENERAL: awake, some confusion is noted, he is not good historian. Ill appearing. Thin elderly individual. SKIN: Warm and dry. HEAD: Normocephalic. EYES: No scleral icterus. No injection or drainage. NECK: Supple, trachea midline. No JVD or lymphadenopathy. CARDIOVASCULAR: Regular rate and rhythm without murmurs, gallops, or rubs. RESPIRATORY: Breath sounds equal bilaterally. No accessory muscle use. GASTROINTESTINAL: Abdomen soft, non-tender, nondistended. MUSCULOSKELETAL: No cyanosis, or edema. BACK: Nontender without obvious deformity. No CVA tenderness. Laboratory Laboratory Tests Test 08/03/17 16:43 Blood Urea Nitrogen 65 Creatinine 1.89 Random Glucose 139 Calcium Level 9.2 Sodium Level 134 Potassium Level 4.2 Chloride Level 101 Carbon Dioxide Level 19.5 Anion Gap 14 Estimat Glomerular Filtration Rate 34 Result Diagram: 08/01/17 0337 08/03/17 3958 Assessment and Plan Problem List: (1) Chronic kidney disease, stage III (moderate) ICD Codes: N18.3 - Chronic kidney disease, stage 3 (moderate) Plan: Likely has diabetic nephropathy. Renal function appears to be near baseline. Quantify proteinuria. Obtain renal US. Also ordered SPEP and urine immunofixation. Avoid nephrotoxic agents. Continue risk factor modifications. Use of EDISON inhibitor/ARB is preferable if renal function is stable. (2) Type 2 diabetes mellitus with diabetic chronic kidney disease ICD Codes: E11.22 - Type 2 diabetes mellitus with diabetic chronic kidney disease Plan: Avoid Metformin at this time. Maintain HbA1C around 7 %,. Initiate EDISON inhibitor/ARB if renal function remains stable. (3) Chronic systolic congestive heart failure ICD Codes: I50.22 - Chronic systolic (congestive) heart failure Plan: EF thought to be less than 20 %. Life vest to be provided. Cardiology following. (4) STEMI (ST elevation myocardial infarction) ICD Codes: I21.3 - STEMI (ST elevation myocardial infarction) Status: Acute Plan: Patient developed in stent restenosis. s/p cath. On Aspirin and Brilinta. Assessment and Plan Thanks for the consult. Problem Qualifiers (1) STEMI (ST elevation myocardial infarction): Qualified Codes: I21.3 - ST elevation (STEMI) myocardial infarction of unspecified site Nabil Bentley MD Aug 04, 2017 12:31
--- NOTE | 2017-08-04 17:57 | RADRPT ---
EXAM DATE/TIME: 08/04/2017 17:10 [place] COMPARISON: No previous studies available for comparison. INDICATIONS : Increased BUN/Creatinine. MEDICAL HISTORY : Myocardial infarction. Hypercholesterolemia. Hypertension. Anticoagulant therapy. Kidney stones. 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 SURGICAL HISTORY : Cardiac catheterization. Coronary stent. ENCOUNTER: Initial ACUITY: 1 day PAIN SCORE: 0/10 LOCATION: Bilateral flank MEASUREMENTS: RIGHT KIDNEY: 10.6 x 4.4 x 5.0 cm LEFT KIDNEY: 10.4 x 3.5 x 6.6 cm FINDINGS: RIGHT KIDNEY: Renal cortex is thinned. There is some hydronephrosis of the collecting system. There is an 8 mm ston e in the upper pole.. LEFT KIDNEY: Renal cortex is thinned. There is some hydronephrosis of the collecting system. There is a 1.5 cm sto ne in the lower pole. There also appears to be a stone in the upper pole measuring about 8 mm.. BLADDER: Urinary bladder appears to be distended with a 1294 cc volume. Patient was unable to void. CONCLUSION: 1. Bilateral hydronephrosis. 2. Bilateral renal calculi. 3. Distended urinary bladder. Davi Godoy MD on August 04, 2017 at 17:52 Board Certified Radiologist. This report was verified electronically.
[2017-08-04] MEDS: ATORVASTATIN 80 MG TAB PO SCH (21:22)
[2017-08-05] VITALS (14 sets, daily range): BP systolic 110–128; BP diastolic 65–82; PULSE 74–92; RESP 20; TEMP 97–98.7; O2SAT 95–98
[2017-08-05] MEDS: RESP: ALBUTEROL 2.5 MG/IPRATROPIUM 0.5 MG NEB (SCH) NEB ×3 (04:18→12:54)
[2017-08-05] MEDS: ISOSORBIDE MONONITRATE 30 MG TAB PO SCH (07:39)
[2017-08-05] MEDS: INSULIN NovoLIN REGULAR SUPPLEMENTAL SCALE SQ SCH ×2 (08:00→12:00)
[2017-08-05] MEDS: RESP: BUDESONIDE 0.5 MG/2 ML NEB NEB SCH (08:14)
[2017-08-05 09:10] LABS: TOTAL PROTEIN SPE 6.9 GM/DL (6.0-7.6)
[2017-08-05] MEDS: CARVEDILOL 6.25 MG TAB PO SCH (10:02)
[2017-08-05] MEDS: LEVOFLOXACIN 250 MG TAB PO SCH (10:02)
[2017-08-05] MEDS: TICAGRELOR 90 MG TAB PO SCH (10:03)
[2017-08-05] MEDS: ASPIRIN 81 MG CHEW TAB PO SCH (10:03)
[2017-08-05] MEDS: guaiFENesin E.R. 600 MG TAB PO SCH (10:05)
--- NOTE | 2017-08-05 11:02 | HHI.NPPN ---
Subjective Renal Failure: Chronic, Acute Interval History He is resting in bed. Renal US revealed retention. Gilliland was placed. Repeat labs in process. (Janie Mclean) Objective Data Data Vital Signs Date Time Temp Pulse Resp B/P (MAP) Pulse Ox O2 Delivery O2 Flow Rate FiO2 08/05/17 10:00 88 08/05/17 09:00 87 08/05/17 08:00 98.7 84 20 110/70 (83) 98 08/05/17 08:00 86 08/05/17 06:00 78 08/05/17 05:00 74 08/05/17 04:00 98.0 86 20 113/65 (81) 95 08/05/17 04:00 82 08/05/17 03:00 80 08/05/17 02:00 78 08/05/17 01:00 82 08/05/17 00:00 98.2 92 20 128/82 (97) 97 08/05/17 00:00 90 08/04/17 23:00 88 08/04/17 22:00 94 08/04/17 21:00 96 08/04/17 20:00 86 08/04/17 20:00 98.2 95 20 134/71 (92) 97 08/04/17 19:44 98 08/04/17 19:00 90 08/04/17 17:00 86 08/04/17 16:00 86 08/04/17 15:00 82 08/04/17 15:00 97.5 87 16 121/67 (85) 97 08/04/17 14:00 88 08/04/17 13:00 96 08/04/17 12:30 97.6 08/04/17 12:00 80 08/04/17 11:30 79 16 116/75 (89) 99 08/04/17 11:00 90 (Janie Mclean) -: 08/01/17 0337 08/03/17 1643 Imaging Last Impressions Renal Ultrasound 08/04/17 0000 Signed Impressions: Service Date/Time: Friday, August 04, 2017 17:10 - CONCLUSION: 1. Bilateral hydronephrosis. 2. Bilateral renal calculi. 3. Distended urinary bladder. Davi Godoy MD Chest X-Ray 07/31/17 1044 Signed Impressions: Service Date/Time: Monday, July 31, 2017 10:54 - CONCLUSION: 1. Stable left lung base atelectasis. 2. No acute abnormality or significant interval change. Gage Langley MD Tubes & Lines: Gilliland (Carmelo Mcleanon B. REGULAR SENIOR CARE PROVIDER) Physical Exam General Appearance: Well Nourished, Comfortable, Sleeping (Caridad,Janie B. REGULAR SENIOR CARE PROVIDER) Eyes Eye Exam: Pupils Equal (CaridadJanie B. REGULAR SENIOR CARE PROVIDER) Throat Throat Exam: Oral Mucosa [place] & Moist (Caridad,Janie B. REGULAR SENIOR CARE PROVIDER) Pulmonary Resp Exam: Clear Bilaterally, Breath Sounds Equal (Caridad,Janie B. REGULAR SENIOR CARE PROVIDER) Cardiology CV Exam: Regular, Normal Sinus Rhythm (Caridad,Janie B. REGULAR SENIOR CARE PROVIDER) Gastrointestinal/Abdomen GI Exam: Soft, Non-Tender (Caridad,Janie B. REGULAR SENIOR CARE PROVIDER) Musculoskeletal MS Exam: Normal Gait, Normal Tone (CaridadJanie B. REGULAR SENIOR CARE PROVIDER) Integumentary Skin Exam: Warm, Dry, Intact (Caridad,Janie B. REGULAR SENIOR CARE PROVIDER) Extremeties Extremities Exam: No Edema, Pedal Pulses Palpable (Caridad,Janie B. REGULAR SENIOR CARE PROVIDER) Neurologic Neuro Exam: Alert, Awake, Oriented, Speech Clear, Moving All Extremities (CaridadJanie B. REGULAR SENIOR CARE PROVIDER) Psychiatric Psych Exam: Appropriate Responses (CaridadJanie B. REGULAR SENIOR CARE PROVIDER) Assessment/Plan Discussed Condition With: Patient Assessment Summary: HOMERO/Acute Renal Failure Problem List: (1) Chronic kidney disease, stage III (moderate) ICD Codes: N18.3 - Chronic kidney disease, stage 3 (moderate) Plan: Likely has underlying diabetic nephropathy. SPEP and urine immunofixation are in process. HOMERO due to retention, s/p gilliland placement. Awaiting repeat renal panel, anticipat improvement. Start flomax. Leave gilliland in place for the time being. Avoid nephrotoxic agents. IVF not required, PO fluids encouraged. Repeat labs in AM. (2) Type 2 diabetes mellitus with diabetic chronic kidney disease ICD Codes: E11.22 - Type 2 diabetes mellitus with diabetic chronic kidney disease Plan: Avoid Metformin at this time. Use Insulin as needed, glucose goal 140- 180 mg/dL. Maintain HbA1C around 7 %,. Resume EDISON inhibitor if renal function improves for discharge purposes. (3) Chronic systolic congestive heart failure ICD Codes: I50.22 - Chronic systolic (congestive) heart failure Plan: EF thought to be less than 20 %. Life vest to be provided. Cardiology following. (4) STEMI (ST elevation myocardial infarction) ICD Codes: I21.3 - STEMI (ST elevation myocardial infarction) Status: Acute Plan: Patient developed in stent restenosis. s/p cath. On Aspirin and Brilinta. Also coreg. EDISON on hold. (Janie Mclean) Plan patient was seen and examined. Renal function has improved, had developed urinary retention. Start Flomax. Consider voiding trial. I will sign off at this time. (Nabil Bentley MD) Problem Qualifiers (1) STEMI (ST elevation myocardial infarction): Qualified Codes: I21.3 - ST elevation (STEMI) myocardial infarction of unspecified site Janie Mclean Aug 05, 2017 11:02 Nabil Bentley MD Aug 05, 2017 17:44
[2017-08-05 11:15] LABS: BICARBONATE 20.5 MEQ/L (21.0-32.0); POTASSIUM 4.2 MEQ/L (3.5-5.1)
[2017-08-05] MEDS ORDERED: TAMSULOSIN HCL 0.4 MG CAP PO SCH ×2 (11:15→12:45)
--- NOTE | 2017-08-05 11:30 | HHI.PR ---
Subjective Remarks This is a pleasant 82 y/o male with Medical history significant for COPD, CAD, Hypertension, who came to ER with chest pain, dizziness and shortness of breath. found inferior KS. Status post Cardiac Catheterization 1937, had Left heart catheterization, Selective Right and left Coronary angiography, Selective left common femoral artery angiography, due to ST segment elevation [place], acute stent thrombosis, found Acute stent thrombosis of the recently placed right coronary artery stent with successful opening of the vessel with POBA, by Doctor Shawn Robledo, today I was consulted for Medical Management. by Doctor Robledo. At this time seen in his bedroom in moderate respiratory distress, has expiratory wheezing, started on Solu-Medrol Duoneb treatment, Budesonide, Mucinex and incentive spirometry, already given Levaquin by Doctor Robledo. 08/02: stable seen in his bedroom and discussed with Nurse Miss Amaya, patient stable will have 2D echocardiogram later today, no nausea, vomit or diarrhea, improving respiratory status, no nausea, vomit or diarrhea. 08/03: Stable in his bedroom, he states lives alone and Physical therapy recommended for home with [facility] for PT not recommended SNF, will follow with brokerage office manager was discussed with nurse Miss Nur and his family wants him going to SNF, also will need to get a LifeVest before discharge. no nausea, vomit or diarrhea, improving respiratory symptoms. 08/04: Seen in his bedroom stable his creatinine increased asked for Nephrology specialist consulted. 08/05: Stable in his bedroom discussed with nurse Miss Murray and with Continuous Process Machine Operator the patient qualified for Home with Home Health care at discharge, no nausea, vomit or diarrhea discussed with doctor Nabil Bentley. Objective Vital Signs Date Time Temp Pulse Resp B/P (MAP) Pulse Ox O2 Delivery O2 Flow Rate FiO2 08/05/17 10:00 88 08/05/17 09:00 87 08/05/17 08:00 98.7 84 20 110/70 (83) 98 08/05/17 08:00 86 08/05/17 06:00 78 08/05/17 05:00 74 08/05/17 04:00 98.0 86 20 113/65 (81) 95 08/05/17 04:00 82 08/05/17 03:00 80 08/05/17 02:00 78 08/05/17 01:00 82 08/05/17 00:00 98.2 92 20 128/82 (97) 97 08/05/17 00:00 90 08/04/17 23:00 88 08/04/17 22:00 94 08/04/17 21:00 96 08/04/17 20:00 86 08/04/17 20:00 98.2 95 20 134/71 (92) 97 08/04/17 19:44 98 08/04/17 19:00 90 08/04/17 17:00 86 08/04/17 16:00 86 08/04/17 15:00 82 08/04/17 15:00 97.5 87 16 121/67 (85) 97 08/04/17 14:00 88 08/04/17 13:00 96 08/04/17 12:30 97.6 08/04/17 12:00 80 08/04/17 11:30 79 16 116/75 (89) 99 I/O 08/04/17 08/04/17 08/04/17 08/05/17 08/05/17 08/05/17 07:00 15:00 23:00 07:00 15:00 23:00 Intake Total 240 ml 720 ml 360 ml Output Total 600 ml 2000 ml 1000 ml Balance -360 ml -1280 ml -640 ml Intake Oral 240 ml 720 ml 360 ml Output Urine Total 600 ml 2000 ml 1000 ml # Bowel Movements 0 Result Diagram: 08/01/17 0337 08/05/17 0515 Imaging Last Impressions Renal Ultrasound 08/04/17 0000 Signed Impressions: Service Date/Time: Friday, August 04, 2017 17:10 - CONCLUSION: 1. Bilateral hydronephrosis. 2. Bilateral renal calculi. 3. Distended urinary bladder. Davi Godoy MD Chest X-Ray 07/31/17 1044 Signed Impressions: Service Date/Time: Monday, July 31, 2017 10:54 - CONCLUSION: 1. Stable left lung base atelectasis. 2. No acute abnormality or significant interval change. Gage Langley MD Procedures 1937, had Left heart catheterization, Selective Right and left Coronary angiography, Selective left common femoral artery angiography, due to ST segment elevation [place], acute stent thrombosis, found Acute stent thrombosis of the recently placed right coronary artery stent with successful opening of the vessel with Plain [place] Balloon Angioplasty. Other Results Laboratory Tests Test 07/31/17 10:48 08/01/17 03:37 08/05/17 05:15 Prothrombin Time 12.0 SEC Prothromb Time International Ratio 1.1 RATIO Activated Partial Thromboplast Time 29.3 SEC Blood Urea Nitrogen 27 MG/DL 46 MG/DL Creatinine 1.60 MG/DL 1.39 MG/DL Random Glucose 162 MG/DL 129 MG/DL Calcium Level 9.3 MG/DL 9.4 MG/DL Magnesium Level 2.2 MG/DL Sodium Level 137 MEQ/L 139 MEQ/L Potassium Level 4.4 MEQ/L 4.2 MEQ/L Chloride Level 104 MEQ/L 105 MEQ/L Carbon Dioxide Level 20.1 MEQ/L 20.5 MEQ/L Total Creatine Kinase 30 U/L Troponin I 0.03 NG/ML White Blood Count 19.0 TH/MM3 Red Blood Count 4.88 MIL/MM3 Hemoglobin 15.6 GM/DL Hematocrit 46.5 % Mean Corpuscular Volume 95.2 FL Mean Corpuscular Hemoglobin 31.9 PG Mean Corpuscular Hemoglobin Concent 33.5 % Red Cell Distribution Width 14.8 % Platelet Count 354 TH/MM3 Mean Platelet Volume 9.2 FL Neutrophils (%) (Auto) 85.7 % Lymphocytes (%) (Auto) 6.2 % Monocytes (%) (Auto) 7.3 % Eosinophils (%) (Auto) 0.3 % Basophils (%) (Auto) 0.5 % Neutrophils # (Auto) 16.3 TH/MM3 Lymphocytes # (Auto) 1.2 TH/MM3 Monocytes # (Auto) 1.4 TH/MM3 Eosinophils # (Auto) 0.1 TH/MM3 Basophils # (Auto) 0.1 TH/MM3 CBC Comment DIFF FINAL Differential Comment Triglycerides Level 85 MG/DL Cholesterol Level 109 MG/DL LDL Cholesterol 57 MG/DL HDL Cholesterol 35.5 MG/DL Cholesterol/HDL Ratio 3.07 RATIO Albumin 3.1 GM/DL Phosphorus Level 3.4 MG/DL Anion Gap 14 MEQ/L Estimat Glomerular Filtration Rate 49 ML/MIN Total Protein 6.9 GM/DL Objective Remarks GENERAL: Well developed man in Moderate respiratory distress. SKIN: No rashes, ecchymoses or lesions. Cool and dry. HEAD: Atraumatic. Normocephalic.. EYES: Pupils equal round and reactive. Extraocular motions intact. No scleral icterus. No injection or drainage. ENT: Nose without bleeding, purulent drainage or septal hematoma. Throat without erythema, tonsillar hypertrophy or exudate. Uvula midline. Airway patent. NECK: Trachea midline. No JVD or lymphadenopathy. Supple, nontender, no meningeal signs. CARDIOVASCULAR: Regular rate and rhythm without murmurs, gallops, or rubs. RESPIRATORY: Severe Decreased breath sounds bilateral, Mild expiratory wheezing , no crackles. GASTROINTESTINAL: Abdomen soft, non-tender, nondistended. No hepato-splenomegaly , or palpable masses. No guarding. Ko cath in place. MUSCULOSKELETAL: Extremities without clubbing, cyanosis, or edema. NEUROLOGICAL: Awake and alert. Normal speech. Medications and IVs Current Medications Medications (Trade) Dose Ordered Sig/Maury Route Start Time Stop Time Status Last Admin (Tylenol) 325 mg Q4H PRN PO 07/31/17 12:30 (Aspirin Chew) 81 mg DAILY PO 08/01/17 09:00 08/05/17 10:03 (Brilinta) 90 mg BID PO 08/01/17 09:00 08/05/17 10:03 (Atropine Inj) 0.5 mg UNSCH PRN IV PUSH 07/31/17 12:30 (Zofran Inj) 4 mg Q4H PRN IV PUSH 07/31/17 12:30 (Prinivil) 5 mg DAILY PO 08/01/17 09:00 Future Hold 08/01/17 08:22 (NS Flush) 2 ml UNSCH PRN IVF 07/31/17 18:00 08/04/17 08:43 (Lipitor) 80 mg HS PO 08/01/17 21:00 08/04/17 21:22 (Coreg) 6.25 mg BID PO 08/01/17 09:00 08/05/17 10:02 (Imdur) 30 mg DAILY@07 PO 08/02/17 07:00 08/05/17 07:39 (Atrovent Neb) 0.5 mg Q6HR NEB NEB 08/01/17 10:00 08/02/17 02:47 (Levaquin) 250 mg DAILY PO 08/02/17 09:00 08/05/17 10:02 (Duoneb Neb) 1 ampule Q4HR NEB NEB 08/01/17 16:00 08/05/17 08:14 (Pulmicort Respule Neb) 0.5 mg Q12HR NEB NEB 08/01/17 14:40 08/05/17 08:14 (Mucinex Er) 600 mg BID PO 08/01/17 14:30 08/05/17 10:05 (NovoLIN R SUPPLEMENTAL SCALE) 1 ACHS SLIDING SCALE SQ 08/01/17 17:00 08/04/17 22:24 (D50w (Vial) Inj) 50 ml UNSCH PRN IV PUSH 08/01/17 14:45 (Glucagon Inj) 1 mg UNSCH PRN OTHER 08/01/17 14:45 (Flomax) 0.4 mg DAILY PO 08/05/17 11:15 UNV A/P Assessment and Plan 1. STEMI in a patient with CAD and status post recent PCI and stent placement to the Right Coronary artery, due to acute in stent thrombosis for Doctor Venkat is clear the patient is compliant with Plavix and he is non responder to Plavix, Status post Cardiac Catheterization 1937, had Left heart catheterization, Selective Right and left Coronary angiography, Selective left common femoral artery angiography, due to ST segment elevation [place], acute stent thrombosis, found Acute stent thrombosis of the recently placed right coronary artery stent with successful opening of the vessel with [place] Balloon Angioplasty, status post Echocardiogram found EF less than 20% with global Hypokinesis the patient has the LifeVest recommended by healthcare specialist. 2. COPD exacerbated to continue Bronchodilator, Mucolytic and incentive spirometry, already on Levaquin to continue, will try to keep him off Systemic Steroids today he had one dose of Solu-Medrol yesterday. improving condition, encourage Ambulation as recommended also by healthcare specialist, asked for PT evaluation and passed will go home with [facility] for Skilled nurse and follow at home. 3. Lung mass followed by his Primary Care Physician. is not been compliant with follow up recommended by PCP 4. Hypertension controlled 5. Hyperlipidemia to continue High intensity Statin management 6. DM II continue sliding scale and diet ADA 1800 cals. 7. Obesity strongly recommended diet and exercise 8. Heavy Tobacco dependence until two years ago. 9. CKD III with Mild Acute Kidney Injury, found by Nephrology specialist Urinary retention, was placed Ko cath and the patient Improving fast. will start Flomax and follow as outpatient by PCP, Nephrology and will need Urology specialist as outpatient. Discussed Condition With Patient and nurse Miss Murray, all questions answered to the best of my abilities. Discussed with Nephrology specialist Doctor Nabil Bentley he states the patient is improving and will need to go home with Ko in place and follow with him and PCP will need Urology specialist as outpatient. Code Status Full Code. Discharge Planning Discharge Home on [facility] Anival Galindo MD Aug 05, 2017 11:30 am
[2017-08-05] MEDS ORDERED: ATOR1TAB18 PO (12:46)
[2017-08-05] MEDS ORDERED: ISOS30TA3 PO (12:46)
[2017-08-05] MEDS ORDERED: BRIL90TA PO (12:46)
[2017-08-05] MEDS ORDERED: CARV6.25 PO (12:46)
[2017-08-05] MEDS ORDERED: TAMS5CAP PO (12:46)
--- NOTE | 2017-08-05 12:49 | HHI.DS ---
Discharge Summary Admission Date Jul 31, 2017 at 11:30 am Discharge Date: Aug 05, 2017 Admitting Diagnosis STEMI (1) Obstructive uropathy ICD Code: N13.9 - Obstructive and reflux uropathy, unspecified Diagnosis: Principal (2) COPD (chronic obstructive pulmonary disease) ICD Code: J44.9 - Chronic obstructive pulmonary disease, unspecified Diagnosis: Principal Status: Chronic (3) STEMI (ST elevation myocardial infarction) ICD Code: I21.3 - STEMI (ST elevation myocardial infarction) Diagnosis: Principal Status: Acute (4) Chronic kidney disease, stage III (moderate) ICD Code: N18.3 - Chronic kidney disease, stage 3 (moderate) Diagnosis: Principal Procedures Cardiac Cath Brief History - From Admission This is a pleasant 82 y/o male with Medical history significant for COPD, CAD, Hypertension, who came to ER with chest pain, dizziness and shortness of breath. found inferior MD. Status post Cardiac Catheterization 1937, had Left heart catheterization, Selective Right and left Coronary angiography, Selective left common femoral artery angiography, due to ST segment elevation [place], acute stent thrombosis, found Acute stent thrombosis of the recently placed right coronary artery stent with successful opening of the vessel with POBA, by Doctor Shawn Robledo, today I was consulted for Medical Management. by Doctor Robledo. At this time seen in his bedroom in moderate respiratory distress, has expiratory wheezing, started on Solu-Medrol Duoneb treatment, Budesonide, Mucinex and incentive spirometry, already given Levaquin by Doctor Robledo. No nausea, vomit or diarrhea. CBC/BMP: 08/01/17 0337 08/05/17 0515 Significant Findings Laboratory Tests Test 08/03/17 16:43 08/05/17 05:15 Blood Urea Nitrogen 65 MG/DL (7-18) 46 MG/DL (7-18) Creatinine 1.89 MG/DL (0.60-1.30) 1.39 MG/DL (0.60-1.30) Random Glucose 139 MG/DL (74-106) 129 MG/DL (74-106) Sodium Level 134 MEQ/L (136-145) Carbon Dioxide Level 19.5 MEQ/L (21.0-32.0) 20.5 MEQ/L (21.0-32.0) Estimat Glomerular Filtration Rate 34 ML/MIN (>89) 49 ML/MIN (>89) Albumin 3.1 GM/DL (3.4-5.0) Imaging Last Impressions Renal Ultrasound 08/04/17 0000 Signed Impressions: Service Date/Time: Friday, August 04, 2017 17:10 - CONCLUSION: 1. Bilateral hydronephrosis. 2. Bilateral renal calculi. 3. Distended urinary bladder. Davi Godoy MD Chest X-Ray 07/31/17 1044 Signed Impressions: Service Date/Time: Monday, July 31, 2017 10:54 - CONCLUSION: 1. Stable left lung base atelectasis. 2. No acute abnormality or significant interval change. Gage Langley MD PE at Discharge GENERAL: Well developed man in Moderate respiratory distress. SKIN: No rashes, ecchymoses or lesions. Cool and dry. HEAD: Atraumatic. Normocephalic.. EYES: Pupils equal round and reactive. Extraocular motions intact. No scleral icterus. No injection or drainage. ENT: Nose without bleeding, purulent drainage or septal hematoma. Throat without erythema, tonsillar hypertrophy or exudate. Uvula midline. Airway patent. NECK: Trachea midline. No JVD or lymphadenopathy. Supple, nontender, no meningeal signs. CARDIOVASCULAR: Regular rate and rhythm without murmurs, gallops, or rubs. RESPIRATORY: Severe Decreased breath sounds bilateral, Mild expiratory wheezing , no crackles. GASTROINTESTINAL: Abdomen soft, non-tender, nondistended. No hepato-splenomegaly , or palpable masses. No guarding. Ko cath in place. MUSCULOSKELETAL: Extremities without clubbing, cyanosis, or edema. NEUROLOGICAL: Awake and alert. Normal speech. Hospital Course This is a pleasant 82 y/o male with Medical history significant for COPD, CAD, Hypertension, who came to ER with chest pain, dizziness and shortness of breath. found inferior MD. Status post Cardiac Catheterization 1937, had Left heart catheterization, Selective Right and left Coronary angiography, Selective left common femoral artery angiography, due to ST segment elevation [place], acute stent thrombosis, found Acute stent thrombosis of the recently placed right coronary artery stent with successful opening of the vessel with POBA, by Doctor Shawn Robledo, today I was consulted for Medical Management. by Doctor Robledo. At this time seen in his bedroom in moderate respiratory distress, has expiratory wheezing, started on Solu-Medrol Duoneb treatment, Budesonide, Mucinex and incentive spirometry, already given Levaquin by Doctor Robledo. 08/02: stable seen in his bedroom and discussed with Nurse Miss Amaya, patient stable will have 2D echocardiogram later today, no nausea, vomit or diarrhea, improving respiratory status, no nausea, vomit or diarrhea. 08/03: Stable in his bedroom, he states lives alone and Physical therapy recommended for home with [facility] for PT not recommended SNF, will follow with airline manager was discussed with nurse Miss Nur and his family wants him going to SNF, also will need to get a LifeVest before discharge. no nausea, vomit or diarrhea, improving respiratory symptoms. 08/04: Seen in his bedroom stable his creatinine increased asked for Nephrology specialist consulted. 08/05: Stable in his bedroom discussed with nurse Miss Murray and with Solution Consultant the patient qualified for Home with Home Health care at discharge, no nausea, vomit or diarrhea discussed with doctor Nabil Bentley. Assessment and Plan 1. STEMI in a patient with CAD and status post recent PCI and stent placement to the Right Coronary artery, due to acute in stent thrombosis for Doctor Venkat is clear the patient is compliant with Plavix and he is non responder to Plavix, Status post Cardiac Catheterization 1937, had Left heart catheterization, Selective Right and left Coronary angiography, Selective left common femoral artery angiography, due to ST segment elevation [place], acute stent thrombosis, found Acute stent thrombosis of the recently placed right coronary artery stent with successful opening of the vessel with [place] Balloon Angioplasty, status post Echocardiogram found EF less than 20% with global Hypokinesis the patient has the LifeVest recommended by air pollution specialist. 2. COPD exacerbated to continue Bronchodilator, Mucolytic and incentive spirometry, already on Levaquin to continue, will try to keep him off Systemic Steroids today he had one dose of Solu-Medrol yesterday. improving condition, encourage Ambulation as recommended also by air pollution specialist, asked for PT evaluation and passed will go home with [facility] for Skilled nurse and follow at home. 3. Lung mass followed by his Primary Care Physician. is not been compliant with follow up recommended by PCP 4. Hypertension controlled 5. Hyperlipidemia to continue High intensity Statin management 6. DM II continue sliding scale and diet ADA 1800 cals. 7. Obesity strongly recommended diet and exercise 8. Heavy Tobacco dependence until two years ago. 9. CKD III with Mild Acute Kidney Injury, found by Nephrology specialist Urinary retention, was placed Ko cath and the patient Improving fast. will start Flomax and follow as outpatient by PCP, Nephrology and will need Urology specialist as outpatient. Discussed Condition With Patient and nurse Miss Murray, all questions answered to the best of my abilities. Discussed with Nephrology specialist Doctor Nabil Bentley he states the patient is improving and will need to go home with Ko in place and follow with him and PCP will need Urology specialist as outpatient. Code Status Full Code. Discharge Planning Discharge Home on [facility] Pt Condition on Discharge: Stable Discharge Disposition: Disch w/ Home Health Serv Discharge Time: > 30 minutes Discharge Instructions DIET: Follow Instructions for: Heart Healthy Diet, Diabetic Diet Activities you can perform: Regular-No Restrictions Anival Galindo MD Aug 05, 2017 12:49 pm
--- NOTE | 2017-08-05 12:50 | HHI.FF ---
Face to Face Verification Diagnosis: (1) Acute respiratory failure (2) HOMERO (acute kidney injury) (3) STEMI (ST elevation myocardial infarction) (4) COPD (chronic obstructive pulmonary disease) Home Health Nursing Order: Medical education Signs/symptoms of disease process Diabetic education CHF education Medication education-adverse effect Nursing assessment with vital signs Instructions: Follow LifeVest and Ko cath also I have seen patient Jeronimo Fong on 08/05/17. My clinical findings support the need for the requested home health care services because: Ltd mobility - disease progression I certify that my clinical findings support that this patient is homebound because: Unsafe to leave home unassisted Anival Galindo MD Aug 05, 2017 12:50 pm
[2017-08-05] MEDS ORDERED: SPIRCAP INH (12:51)
[2017-08-05] MEDS ORDERED: SYMB160A INH (12:51)
[2017-08-05 13:10] LABS: BACTERIA, URINE OCC /hpf; BLOOD, URINE LARGE (NEG); COMMENT (UR) CULTURE INDICATED; CULTURE IF INDICATED CULTURE INDICATED; GLUCOSE,URINE NEG (NEG); HYALINE CAST, URINE 1 /lpf (RARE); KETONE, URINE NEG (NEG); MUCUS URINE FEW /lpf (OCC); NITRITE,URINE NEG (NEG); PH, URINE 5.5 (5.0-8.5); SQUAMOUS EPITHELIAL CELL URINE 1 /hpf (0-5); TRANSITIONAL EPI CELLS, URINE 1 /hpf; URIC ACID CRYSTALS, URINE OCC /hpf; URINE COLOR YELLOW (YELLW/STRAW)
[2017-08-06 22:26] LABS: ALBUMIN SPE 3.29 GM/DL (3.50-5.00); ALPHA 1 GLOBULIN 0.28 GM/DL (0.11-0.29); ALPHA 2 GLOBULIN 1.01 GM/DL (0.22-1.00); BETA GLOBULINS (SPE) 0.92 GM/DL (0.53-1.03)
== END 2017-08-05 17:27 | disposition home health service (06) | DRG 250 ==
LOC: PHED 10:37 → PHEDA 11:30 → HCIS 12:20
PROVIDERS: ADMIT Internal Medicine; ATTEND Internal Medicine
PROC: 02703ZZ Dilation of Coronary Artery, One Artery, Percutaneous Approach (ICD-10-PCS; principal; 2017-07-31)
PROC: 4A023N7 Measurement of Cardiac Sampling and Pressure, Left Heart, Percutaneous Approach (ICD-10-PCS; 2017-07-31)
PROC: B2111ZZ Fluoroscopy of Multiple Coronary Arteries using Low Osmolar Contrast (ICD-10-PCS; 2017-07-31)
PROC: B41G1ZZ Fluoroscopy of Left Lower Extremity Arteries using Low Osmolar Contrast (ICD-10-PCS; 2017-07-31)
PROC: 0T9B70Z Drainage of Bladder with Drainage Device, Via Natural or Artificial Opening (ICD-10-PCS; 2017-08-04)
DX: T82.867A Thrombosis due to cardiac prosthetic devices, implants and grafts, initial encounter (principal); I21.19 ST elevation (STEMI) myocardial infarction involving other coronary artery of inferior wall; N17.9 Acute kidney failure, unspecified; J44.1 Chronic obstructive pulmonary disease with (acute) exacerbation; I50.22 Chronic systolic (congestive) heart failure; I13.0 Hypertensive heart and chronic kidney disease with heart failure and stage 1 through stage 4 chronic kidney disease, or unspecified chronic kidney disease; I25.10 Atherosclerotic heart disease of native coronary artery without angina pectoris; N18.3 Chronic kidney disease, stage 3 (moderate); E11.22 Type 2 diabetes mellitus with diabetic chronic kidney disease; N13.9 Obstructive and reflux uropathy, unspecified; E11.21 Type 2 diabetes mellitus with diabetic nephropathy; E78.5 Hyperlipidemia, unspecified; D72.829 Elevated white blood cell count, unspecified; E66.9 Obesity, unspecified; I25.5 Ischemic cardiomyopathy; R26.81 Unsteadiness on feet; Z79.84 Long term (current) use of oral hypoglycemic drugs; Z87.891 Personal history of nicotine dependence; Z95.5 Presence of coronary angioplasty implant and graft
CPT/HCPCS: 71010; 76775; 76937; 80048; 80061; 80069; 81001; 82550; 82948; 83735; 84165; 84484; 85025; 85610; 85730; 87086; 92941; 93005; 93308; 93454; 94150; 94640; 94664; 96374; 96375; C1725; C1760; C1769; C1887; C1893; G0269; J0583; J1644; J1940; J2250; J2270; J2930; J3010; J7626; J7644; Q9967

== ENCOUNTER 2017-08-09 10:36 | Observation (INO) | payer OTHER ==
[~2017-08-09] VITALS: Ht 177.8 cm; Wt 80.0 kg
[2017-08-09] VITALS (8 sets, daily range): BP systolic 120–147; BP diastolic 64–74; PULSE 83–103; RESP 16–18; TEMP 97.6–98; O2SAT 97–100
[~2017-08-09 10:36] MED LIST changes: -AMLO5TAB2 PO; +ATOR1TAB18 PO; -ATOR40TA16 PO; +BRIL90TA PO; +CARV6.25 PO; -FURO20TA PO; +ISOS30TA3 PO; -ISOS60TA PO; -METO25TA3 PO; -PLAV75TA29 PO; +SPIRCAP INH; +SYMB160A INH; +TAMS5CAP PO
[2017-08-09] MEDS ORDERED: SYMB80AE INH (10:52)
[2017-08-09] MEDS ORDERED: SODIUM CHLOR 0.9% 1000 ML INJ 1,000 ML IV SCH (11:25)
--- NOTE | 2017-08-09 11:46 | PD ---
HPI Chief Complaint: General Weakness Time Seen by Provider: 11:39 Travel History International Travel<30 days: No Contact w/Intl Traveler<30days: No Traveled to known affect area: No History of Present Illness HPI 10-year-old male that presents to the ED via ambulance for evaluation of generalized weakness. Per patient he feels weak in his legs and unable to get up because of it. Per patient she is fearful that he's been a fall. Per patient he is supposed to have physical therapy but he has not had any at home. Patient's blood to have home help the swelling states that nobody showed up. He was recently released from this hospital on August 05. He was admitted for STEMI and had a heart catheterization that showed thrombosis of the stent put in June. Patient had another stent that improved flow to the heart. Ever since having this episode patient has been feeling weak in his legs and there is mention of this on the notes. Patient apparently was sent with physical therapy for this but unclear if his been doing it.. Patient himself is somewhat of a poor historian. He does not appear to be taking care of himself. Per ambulance he was just released from the hospital yesterday from the history obtained from friend but again unclear as patient was released on the from this hospital on this patient went to a different hospital but he is certain that he was in this hospital. She has a history of chronic kidney disease, COPD, ACS and takes blood thinners. Patient has a urinary catheter. He has no allergies to medication. Per patient his main complaint is that he feels weak in his legs and whenever he puts weight on them he feels like his legs and leg going his been off all and because he lives alone he feels he is unsafe. PFSH Past Medical History Hx Anticoagulant Therapy: Yes (PLAVIX) Asthma: No Blood Disorders: No Anxiety: No Depression: No Heart Rhythm Problems: No Cancer: No Cardiac Catheterization: Yes Cardiovascular Problems: Yes High Cholesterol: Yes Chemotherapy: No Chest Pain: No Congestive Heart Failure: No COPD: Yes Diabetes: Yes Patient Takes Glucophage: Yes Diminished Hearing: No Endocrine: No Genitourinary: Yes (KIDNEY STONES) Hypertension: Yes Immune Disorder: No Kidney Stones: Yes Medical other: Yes (LIFE VEST- ZOLL) Musculoskeletal: No Neurologic: No Psychiatric: No Reproductive: No Respiratory: Yes Myocardial Infarction: Yes Radiation Therapy: No Sleep Apnea: No Thyroid Disease: No Past Surgical History Abdominal Surgery: No Cardiac Surgery: Yes (HEART CATH) Coronary Stent: Yes Genitourinary Surgery: No Thoracic Surgery: No Other Surgery: Yes (stent placement) Social History Alcohol Use: No (reportedly quit drinking alcohol approximate 5 months ago) Tobacco Use: No (QUIT 2014) Substance Use: No Allergies-Medications (Allergen,Severity, Reaction): Coded Allergies: No Known Allergies (Unverified , 08/09/17) Reported Meds & Prescriptions Reported Meds & Active Scripts Active Spiriva Handihaler (Tiotropium Inh) 18 Mcg Cap 18 Mcg INH DAILY 1 capsule = 18 mcg Symbicort Inh (Budesonide/Formoterol Fumarate) 160-4.5 Mcg/Act Aero 1 Puff INH Q12HR Coreg (Carvedilol) 6.25 Mg Tab 6.25 Mg PO BID Isosorbide Mononitrate ER (Isosorbide Mononitrate) 30 Mg Joel 30 Mg PO DAILY@07 Atorvastatin (Atorvastatin Calcium) 80 Mg Tab 80 Mg PO HS Brilinta (Ticagrelor) 90 Mg Tab 90 Mg PO BID Flomax (Tamsulosin HCl) 0.4 Mg Cap 0.4 Mg PO DAILY Aspirin Low Strength (Aspirin) 81 Mg Chew 81 Mg PO DAILY Reported Symbicort Inh (Budesonide/Formoterol Fumarate) 80-4.5 Mcg/Act Aero 2 Puff INH Q12HR Vitamin D3 (Cholecalciferol) 1,000 Unit Cap 1,000 Units PO DAILY Lisinopril 5 Mg Tab 5 Mg PO DAILY Metformin (Metformin HCl) 1,000 Mg Tab 1,000 Mg PO DAILY With a meal Review of Systems Except as stated in HPI: all other systems reviewed are Neg Physical Exam Narrative GENERAL: SKIN: Warm and dry. HEAD: Atraumatic. Normocephalic. EYES: Pupils equal and round. No scleral icterus. No injection or drainage. ENT: No nasal bleeding or discharge. Mucous membranes pink and moist. Tongue is midline. No uvula deviation. NECK: Trachea midline. No JVD. CARDIOVASCULAR: Regular rate and rhythm. No murmurs, S3, S4. RESPIRATORY: No accessory muscle use. Clear to auscultation. Breath sounds equal bilaterally. GASTROINTESTINAL: Abdomen soft, non-tender, nondistended. Hepatic and splenic margins not palpable. MUSCULOSKELETAL: Extremities without clubbing, cyanosis, or edema. No obvious deformities. Full range of motion of the upper and lower extremities bilaterally. 2+ pulses bilaterally. 4 out of 5 strength in the lower legs with flexion. NEUROLOGICAL: Awake and alert. No obvious cranial nerve deficits. Motor grossly within normal limits. Five out of 5 muscle strength in the arms and legs. Normal speech. PSYCHIATRIC: Appropriate mood and affect; insight and judgment normal. Data Data Last Documented VS Vital Signs Date Time Temp Pulse Resp B/P (MAP) Pulse Ox O2 Delivery O2 Flow Rate FiO2 08/09/17 13:42 90 18 130/64 (86) 100 Room Air 08/09/17 10:45 97.6 Orders Orders Electrocardiogram (08/09/17 11:21) Complete Blood Count With Diff (08/09/17 11:21) Comprehensive Metabolic Panel (08/09/17 11:21) Creatine Kinase (Cpk) (08/09/17 11:21) Prothrombin Time / Inr (Pt) (08/09/17 11:21) Act Partial Throm Time (Ptt) (08/09/17 11:21) Urinalysis - C+S If Indicated (08/09/17 11:21) Cath For Specimen (08/09/17 11:21) Magnesium (Mg) (08/09/17 11:21) Iv Access Insert/Monitor (08/09/17 11:21) Ecg Monitoring (08/09/17 11:21) Oximetry (08/09/17 11:21) Lactic Acid (08/09/17 11:21) Sodium Chlor 0.9% 1000 Ml Inj (Ns 1000 M (08/09/17 11:25) Chest, Single Ap (08/09/17 ) (Hub Use Only)Inp Phy Cons/Ref (08/09/17 ) Admit Order (Ed Use Only) (08/09/17 15:47) Labs Laboratory Tests Test 08/09/17 11:55 08/09/17 12:20 08/09/17 13:50 White Blood Count 12.5 TH/MM3 Red Blood Count 5.29 MIL/MM3 Hemoglobin 17.1 GM/DL Hematocrit 50.5 % Mean Corpuscular Volume 95.4 FL Mean Corpuscular Hemoglobin 32.3 PG Mean Corpuscular Hemoglobin Concent 33.8 % Red Cell Distribution Width 14.9 % Platelet Count 413 TH/MM3 Mean Platelet Volume 8.9 FL Neutrophils (%) (Auto) 79.6 % Lymphocytes (%) (Auto) 11.4 % Monocytes (%) (Auto) 7.8 % Eosinophils (%) (Auto) 0.7 % Basophils (%) (Auto) 0.5 % Neutrophils # (Auto) 10.0 TH/MM3 Lymphocytes # (Auto) 1.4 TH/MM3 Monocytes # (Auto) 1.0 TH/MM3 Eosinophils # (Auto) 0.1 TH/MM3 Basophils # (Auto) 0.1 TH/MM3 CBC Comment DIFF FINAL Differential Comment Prothrombin Time 11.4 SEC Prothromb Time International Ratio 1.0 RATIO Activated Partial Thromboplast Time 26.4 SEC Lactic Acid Level 2.0 mmol/L Urine Color LIGHT-RED Urine Turbidity CLOUDY Urine pH 5.5 Urine Specific [place] 1.021 Urine Protein 30 mg/dL Urine Glucose (UA) TRACE mg/dL Urine Ketones NEG mg/dL Urine Occult Blood LARGE Urine Nitrite NEG Urine Bilirubin NEG Urine Urobilinogen LESS THAN 2.0 MG/DL Urine Leukocyte Esterase NEG Urine RBC 70 /hpf Urine WBC 3 /hpf Urine Squamous Epithelial Cells 1 /hpf Urine Uric Acid Crystals FEW /hpf Urine Amorphous Sediment OCC Urine Bacteria OCC /hpf Urine Mucus FEW /lpf Microscopic Urinalysis Comment CULT NOT INDICATED Blood Urea Nitrogen 39 MG/DL Creatinine 1.63 MG/DL Random Glucose 120 MG/DL Total Protein 7.3 GM/DL Albumin 2.9 GM/DL Calcium Level 8.2 MG/DL Magnesium Level 2.2 MG/DL Alkaline Phosphatase 74 U/L Aspartate Amino Transf (AST/SGOT) 25 U/L Alanine Aminotransferase (ALT/SGPT) 43 U/L Total Bilirubin 0.7 MG/DL Sodium Level 139 MEQ/L Potassium Level 3.9 MEQ/L Chloride Level 110 MEQ/L Carbon Dioxide Level 20.3 MEQ/L Anion Gap 9 MEQ/L Estimat Glomerular Filtration Rate 41 ML/MIN Total Creatine Kinase 37 U/L [facility] Medical Decision Making Medical Screen Exam Complete: Yes Emergency Medical Condition: Yes Medical Record Reviewed: Yes Interpretation(s) CBC & BMP Diagram 08/09/17 11:55 08/09/17 13:50 Total Protein 7.3, Albumin 2.9 L, Calcium Level 8.2 L, Magnesium Level 2.2, Alkaline Phosphatase 74, Aspartate Amino Transf (AST/SGOT) 25, Alanine Aminotransferase (ALT/SGPT) 43, Total Bilirubin 0.7 UA shows blood and some bacteria but no nitrates on leukerase esterase CXR negative for acute disease CK WNL Differential Diagnosis Generalized weakness versus sepsis versus urosepsis versus rhabdomyolysis versus leg weakness Narrative Course 82-year-old male that presents to the ED for evaluation of weakness to the lower legs. Patient was properly examined and was found to have signs and symptoms of unclear etiology at this time. He does appear to have weakness of the lower legs. This is his main complaint. Patient is somewhat of a poor historian and unclear if his been seen in a different hospital as he continues to state that he was seen here and released yesterday. Per records he was actually released on the of this month. No signs of head injury. Labs and imaging were done that show no sign of acute disease. Patient is physically weak on the lower extremities. Patient was sent home with home health and questionable whether he had any help at home. Case was discussed in my attending Dr. Miner who evaluated the patient and recommends rehabilitation. Case management was consulted and they stated that they because of the weekend cannot admit him to the rehabilitation facility and will require 24 hrs obs. Case was discussed with Dr. Bazzi who agrees to obs admit. Diagnosis Primary Impression: Weakness of both lower extremities Additional Impression: Chronic kidney disease, stage III (moderate) Admitting Information Admitting Physician Requests: Shad Pires Aug 09, 2017 11:46
[2017-08-09 12:26] LABS: BASOPHIL # 0.1 TH/MM3 (0-0.2); BASOPHIL % 0.5 % (0.0-2.0); EOSINOPHIL # 0.1 TH/MM3 (0-0.4); EOSINOPHIL % 0.7 % (0.0-4.0); HEMATOCRIT 50.5 % (39.0-51.0); HEMO FLAGS DIFF FINAL; LYMPH % 11.4 % (9.0-44.0); LYMPHOCYTE # 1.4 TH/MM3 (1.0-4.8); MEAN CELL VOLUME 95.4 FL (80.0-100.0); MEAN CORPUSCULAR HEMOGLOBIN 32.3 PG (27.0-34.0); MEAN CORPUSCULAR HGB CONC 33.8 % (32.0-36.0); MONO % 7.8 % (0.0-8.0); NEUT % 79.6 % (16.0-70.0); PLATELET COUNT 413 TH/MM3 (150-450); RED BLOOD COUNT 5.29 MIL/MM3 (4.50-5.90); RED CELL DISTRIBUTION WIDTH 14.9 % (11.6-17.2); WHITE BLOOD COUNT 12.5 TH/MM3 (4.0-11.0)
[2017-08-09 12:34] LABS: PROTHROMBIN TIME - PATIENT 11.4 SEC (9.8-11.6)
[2017-08-09 12:35] LABS: APTT (PATIENT) 26.4 SEC (24.3-30.1)
[2017-08-09 13:03] LABS: BLOOD, URINE LARGE (NEG); COMMENT (UR) CULT NOT INDICATED; CULTURE IF INDICATED CULT NOT INDICATED; GLUCOSE,URINE TRACE mg/dL (NEG); KETONE, URINE NEG (NEG); MUCUS URINE FEW /lpf (OCC); NITRITE,URINE NEG (NEG); PH, URINE 5.5 (5.0-8.5); SQUAMOUS EPITHELIAL CELL URINE 1 /hpf (0-5); URIC ACID CRYSTALS, URINE FEW /hpf
[2017-08-09 13:05] LABS: BACTERIA, URINE OCC /hpf; URINE COLOR LIGHT-RED (YELLW/STRAW)
[2017-08-09 14:32] LABS: ALT (GPT) 43 U/L (12-78); ANION GAP 9 MEQ/L (5-15); AST (GOT) 25 U/L (15-37); BICARBONATE 20.3 MEQ/L (21.0-32.0); BLOOD UREA NITROGEN 39 MG/DL (7-18); CHLORIDE 110 MEQ/L (98-107); GLOMERULAR FILTRATION RATE 41 ML/MIN (>89); MAGNESIUM 2.2 MG/DL (1.5-2.5); POTASSIUM 3.9 MEQ/L (3.5-5.1); SODIUM (NA) 139 MEQ/L (136-145)
[2017-08-09 14:34] LABS: ALKALINE PHOSPHATASE 74 U/L (45-117); CREATINE KINASE 37 U/L (39-308); TOTAL BILIRUBIN ADULT 0.7 MG/DL (0.2-1.0)
--- NOTE | 2017-08-09 15:08 | RADRPT ---
EXAM DATE/TIME: 08/09/2017 13:14 [facility] COMPARISON: CHEST SINGLE AP, July 31, 2017, 10:54. INDICATIONS : Chest pain and shortness of breath. MEDICAL HISTORY : Hypercholesterolemia. Hypertension Chronic obstructive pulmonary disease. SURGICAL HISTORY : Cardiac cath, coronary stent. ENCOUNTER: Initial ACUITY: 1 day PAIN SCORE: 6/10 LOCATION: Bilateral chest FINDINGS: The cardiac silhouette is normal in transverse diameter. The lungs are free of acute parenchymal opac ity. No effusions are identified. There is prominence of the aortic knob is with calcification charac teristic of atherosclerotic vascular disease. CONCLUSION: 1. No acute cardiopulmonary disease. Cheo Cobb MD on August 09, 2017 at 15:04 Board Certified Radiologist. This report was verified electronically.
--- NOTE | 2017-08-09 15:36 | PD ---
Data Data Last Documented VS Vital Signs Date Time Temp Pulse Resp B/P (MAP) Pulse Ox O2 Delivery O2 Flow Rate FiO2 08/09/17 13:42 90 18 130/64 (86) 100 Room Air 08/09/17 10:45 97.6 Orders Orders Electrocardiogram (08/09/17 11:21) Complete Blood Count With Diff (08/09/17 11:21) Comprehensive Metabolic Panel (08/09/17 11:21) Creatine Kinase (Cpk) (08/09/17 11:21) Prothrombin Time / Inr (Pt) (08/09/17 11:21) Act Partial Throm Time (Ptt) (08/09/17 11:21) Urinalysis - C+S If Indicated (08/09/17 11:21) Cath For Specimen (08/09/17 11:21) Magnesium (Mg) (08/09/17 11:21) Iv Access Insert/Monitor (08/09/17 11:21) Ecg Monitoring (08/09/17 11:21) Oximetry (08/09/17 11:21) Lactic Acid (08/09/17 11:21) Sodium Chlor 0.9% 1000 Ml Inj (Ns 1000 M (08/09/17 11:25) Chest, Single Ap (08/09/17 ) (Hub Use Only)Inp Phy Cons/Ref (08/09/17 ) Labs Laboratory Tests Test 08/09/17 11:55 08/09/17 12:20 08/09/17 13:50 White Blood Count 12.5 TH/MM3 Red Blood Count 5.29 MIL/MM3 Hemoglobin 17.1 GM/DL Hematocrit 50.5 % Mean Corpuscular Volume 95.4 FL Mean Corpuscular Hemoglobin 32.3 PG Mean Corpuscular Hemoglobin Concent 33.8 % Red Cell Distribution Width 14.9 % Platelet Count 413 TH/MM3 Mean Platelet Volume 8.9 FL Neutrophils (%) (Auto) 79.6 % Lymphocytes (%) (Auto) 11.4 % Monocytes (%) (Auto) 7.8 % Eosinophils (%) (Auto) 0.7 % Basophils (%) (Auto) 0.5 % Neutrophils # (Auto) 10.0 TH/MM3 Lymphocytes # (Auto) 1.4 TH/MM3 Monocytes # (Auto) 1.0 TH/MM3 Eosinophils # (Auto) 0.1 TH/MM3 Basophils # (Auto) 0.1 TH/MM3 CBC Comment DIFF FINAL Differential Comment Prothrombin Time 11.4 SEC Prothromb Time International Ratio 1.0 RATIO Activated Partial Thromboplast Time 26.4 SEC Lactic Acid Level 2.0 mmol/L Urine Color LIGHT-RED Urine Turbidity CLOUDY Urine pH 5.5 Urine Specific [place] 1.021 Urine Protein 30 mg/dL Urine Glucose (UA) TRACE mg/dL Urine Ketones NEG mg/dL Urine Occult Blood LARGE Urine Nitrite NEG Urine Bilirubin NEG Urine Urobilinogen LESS THAN 2.0 MG/DL Urine Leukocyte Esterase NEG Urine RBC 70 /hpf Urine WBC 3 /hpf Urine Squamous Epithelial Cells 1 /hpf Urine Uric Acid Crystals FEW /hpf Urine Amorphous Sediment OCC Urine Bacteria OCC /hpf Urine Mucus FEW /lpf Microscopic Urinalysis Comment CULT NOT INDICATED Blood Urea Nitrogen 39 MG/DL Creatinine 1.63 MG/DL Random Glucose 120 MG/DL Total Protein 7.3 GM/DL Albumin 2.9 GM/DL Calcium Level 8.2 MG/DL Magnesium Level 2.2 MG/DL Alkaline Phosphatase 74 U/L Aspartate Amino Transf (AST/SGOT) 25 U/L Alanine Aminotransferase (ALT/SGPT) 43 U/L Total Bilirubin 0.7 MG/DL Sodium Level 139 MEQ/L Potassium Level 3.9 MEQ/L Chloride Level 110 MEQ/L Carbon Dioxide Level 20.3 MEQ/L Anion Gap 9 MEQ/L Estimat Glomerular Filtration Rate 41 ML/MIN Total Creatine Kinase 37 U/L MDM Supervised Visit with [facility]: Yes Narrative Course The history, exam, and medical decision-making in the associated midlevel provider note were completed with my assistance. I reviewed and agree with the findings presented. I attest that I had a [id number] encounter with the patient on the same day, and personally performed and documented my assessment and findings in the medical record. *My assessment and Findings: This is an 82-year-old male who was just discharged 4 days ago from the hospital for his stay in the setting of cardiac stent reocclusion and stabbing as well as a COPD exacerbation. He's not been doing well at home. He's been fatigued, malaised and having weakness. He appears disheveled. I think he would benefit from inpatient rehabilitation. We did speak to the child welfare caseworker here in the emergency department we will obtain physical therapy consultation. Patient will be placed in observation. He has no other acute complaints and labs are all reassuring. Divine Miner MD Aug 09, 2017 15:36
[2017-08-09] MEDS ORDERED: metFORMIN HCL 500 MG TAB PO SCH (16:15)
[2017-08-09] MEDS ORDERED: GLUCAGON 1 MG/ML VIAL OTHER PRN (16:30)
[2017-08-09] MEDS ORDERED: MORPHINE SULFATE 4 MG/ML INJ IV PUSH PRN ×2 (16:30)
[2017-08-09] MEDS ORDERED: SODIUM CHLORIDE 0.9% FLUSH 10 ML FLUSH IV FLUSH PRN (16:30)
[2017-08-09] MEDS ORDERED: PROCHLORPERAZINE 25 MG SUPP RECTAL PRN (16:30)
[2017-08-09] MEDS ORDERED: ASPIRIN 325 MG TAB PO SCH (16:30)
[2017-08-09] MEDS ORDERED: NALOXONE HCL 0.4 MG/ML AMP IV PUSH PRN (16:30)
[2017-08-09] MEDS ORDERED: ACETAMINOPHEN 325 MG TAB PO PRN ×2 (16:30)
[2017-08-09] MEDS ORDERED: oxyCODONE/ACETAMINOPHEN 10 MG/325 MG TAB PO PRN (16:30)
[2017-08-09] MEDS ORDERED: ONDANSETRON HCL 4 MG/2 ML VIAL IVP PRN (16:30)
[2017-08-09] MEDS ORDERED: oxyCODONE/ACETAMINOPHEN 5 MG/325 MG TAB PO PRN (16:30)
[2017-08-09] MEDS ORDERED: DEXTROSE 50% IN WATER 50 ML VIAL(D50) IV PUSH PRN (16:30)
[2017-08-09] MEDS ORDERED: SENNOSIDES 8.6 MG TAB PO PRN (16:30)
[2017-08-09] MEDS ORDERED: MAGNESIUM HYDROXIDE SUSP 30 ML CUP PO PRN (16:30)
[2017-08-09] MEDS ORDERED: LACTULOSE SYRUP 20 GM/30 ML CUP PO PRN (16:30)
[2017-08-09] MEDS ORDERED: BISACODYL 10 MG SUPP RECTAL PRN (16:30)
--- NOTE | 2017-08-09 16:45 | HHI.HP ---
[facility] Primary Care Physician Daniele Ernst MD Admission Diagnosis weakness to lower extremities, recent STEMI, needs placement Diagnoses: (1) Weakness of both lower extremities Diagnosis: Principal (2) Chronic kidney disease, stage III (moderate) Diagnosis: Secondary (3) Type 2 diabetes mellitus with diabetic chronic kidney disease Diagnosis: Secondary (4) Chronic systolic congestive heart failure Diagnosis: Secondary (5) STEMI (ST elevation myocardial infarction) Diagnosis: Secondary (6) Obstructive uropathy Diagnosis: Secondary (7) HOMERO (acute kidney injury) Diagnosis: Secondary (8) Ischemic cardiomyopathy Diagnosis: Secondary (9) Unsteady gait Diagnosis: Principal (10) COPD (chronic obstructive pulmonary disease) Diagnosis: Secondary (11) CAD, multiple vessel Diagnosis: Secondary Travel History International Travel<30 Days: No Contact w/Intl Traveler <30 Da: No Traveled to Known Affected Are: No History of Present Illness Patient is an 82-year-old male that presented to the emergency department via ambulance today for evaluation of generalized weakness.. Patient states that he feels weak in his legs and unable to get up because of it. Patient states that he is fearful that he will fall. Patient is supposed to have home health care but has not had any yet. Patient's patient states that no one has come yet from home health. Was recently released from the hospital on August 05. He was admitted for non-ST IN and had a heart catheterization that showed thrombus of the stent put in in June. Patient then had another stent that improved flow to the heart. Ever since then patient states he's been feeling weak in his legs. Patient was to have physical therapy at home through home health but it has not been done yet. Patient is a very poor historian. Patient does not appear to be taking care of himself. Has history of chronic kidney disease COPD acute coronary syndrome and is supposed to be on blood thinners if he is taking them. Has a chronic urinary catheter Ko in place. Denies any allergies to medications. His main complaint is feeling weak in his legs whenever he puts weight on them and feels like his legs are going to give out on him he lives alone and feels unsafe Review of Systems Constitutional: COMPLAINS OF: Fatigue, DENIES: Diaphoretic episodes, Fever, Weight gain, Weight loss, Chills, Dizziness, Change in appetite Endocrine: DENIES: Heat/cold intolerance, Polydipsia, Polyuria, Polyphagia Eyes: DENIES: Blurred vision, Diplopia, Eye inflammation, Eye pain, Vision loss , Photosensitivity Ears, nose, mouth, throat: DENIES: Tinnitus, Hearing loss, Vertigo, Nasal discharge Respiratory: DENIES: Apneas, Cough, Snoring, Wheezing, Hemoptysis Cardiovascular: COMPLAINS OF: Dyspnea on Exertion, DENIES: Chest pain, Palpitations, Syncope, PND, Lower Extremity Edema Gastrointestinal: DENIES: Abdominal pain, Black stools, Bloody stools, Constipation, Diarrhea, Nausea Genitourinary: DENIES: Sexual dysfunction, Urinary frequency, Urinary incontinence, Urgency Musculoskeletal: DENIES: Joint pain, Muscle aches, Stiffness, Joint Swelling, Back pain Integumentary: DENIES: Abnormal pigmentation, Nail changes, Pruritus Hematologic/lymphatic: DENIES: Bruising, Lymphadenopathy Immunologic/allergic: DENIES: Eczema, Urticaria Neurologic: COMPLAINS OF: Abnormal gait, Localized weakness, DENIES: Headache, Paresthesias, Seizures, Speech Problems, Tremor, Poor Balance Psychiatric: DENIES: Anxiety, Confusion, Mood changes, Depression, Hallucinations, Agitation, Suicidal Ideation, Homicidal Ideation, Delusions Past Family Social History Past Medical History Recent cardiac catheterization Recent STEMI Hyperlipidemia COPD Diabetes Chief kidney stones Hypertension CARDIOmyopathy with a ZOLL life vest in place Past Surgical History Had a catheterization history of stenting 2 Reported Medications Reported Meds & Active Scripts Active Spiriva Handihaler (Tiotropium Inh) 18 Mcg Cap 18 Mcg INH DAILY 1 capsule = 18 mcg Symbicort Inh (Budesonide/Formoterol Fumarate) 160-4.5 Mcg/Act Aero 1 Puff INH Q12HR Coreg (Carvedilol) 6.25 Mg Tab 6.25 Mg PO BID Isosorbide Mononitrate ER (Isosorbide Mononitrate) 30 Mg Joel 30 Mg PO DAILY@07 Atorvastatin (Atorvastatin Calcium) 80 Mg Tab 80 Mg PO HS Brilinta (Ticagrelor) 90 Mg Tab 90 Mg PO BID Flomax (Tamsulosin HCl) 0.4 Mg Cap 0.4 Mg PO DAILY Aspirin Low Strength (Aspirin) 81 Mg Chew 81 Mg PO DAILY Reported Symbicort Inh (Budesonide/Formoterol Fumarate) 80-4.5 Mcg/Act Aero 2 Puff INH Q12HR Vitamin D3 (Cholecalciferol) 1,000 Unit Cap 1,000 Units PO DAILY Lisinopril 5 Mg Tab 5 Mg PO DAILY Metformin (Metformin HCl) 1,000 Mg Tab 1,000 Mg PO DAILY With a meal Allergies: Coded Allergies: No Known Allergies (Unverified , 08/09/17) Active Ordered Medications Current Medications Sodium Chloride 1,000 ml @ 1,000 mls/hr Q1H IV Last administered on t 12:31; Start 08/09/17 at 11:25; Stop 08/09/17 at 12:24; Status DC Aspirin (Aspirin Chew) 81 mg DAILY PO ; Start 08/10/17 at 09:00; Status UNV Atorvastatin Calcium (Lipitor) 80 mg HS PO ; Start 08/09/17 at 21:00; Status UNV Budesonide/ Formoterol Fumarate (Symbicort 80-4.5 Mcg Inh) 2 puff Q12HR INH ; Start 08/09/17 at 21:00; Status UNV Budesonide/ Formoterol Fumarate (Symbicort 160-4.5 Inh) 1 puff Q12HR INH ; Start 08/09/17 at 21:00; Status UNV Carvedilol (Coreg) 6.25 mg BID PO ; Start 08/09/17 at 21:00; Status UNV Cholecalciferol (Vitamin D3) 1,000 units DAILY PO ; Start 08/09/17 at 16:15; Status UNV Isosorbide Mononitrate (Imdur) 30 mg DAILY@07 PO ; Start 08/10/17 at 07:00; Status UNV Lisinopril (Prinivil) 5 mg DAILY PO ; Start 08/09/17 at 16:15; Status UNV Metformin HCl (Glucophage) 1,000 mg DAILY PO ; Start 08/09/17 at 16:15; Status UNV Tamsulosin HCl (Flomax) 0.4 mg DAILY PO ; Start 08/09/17 at 16:15; Status UNV Ticagrelor (Brilinta) 90 mg BID PO ; Start 08/09/17 at 21:00; Status UNV Tiotropium Grady (Spiriva Inh) 18 mcg DAILY INH ; Start 08/09/17 at 16:15; Status UNV Aspirin (Aspirin) 81 mg DAILY PO ; Start 08/09/17 at 16:30; Status UNV Sodium Chloride (NS Flush) 2 ml UNSCH PRN IV FLUSH FLUSH AFTER USING IV ACCESS ; Start 08/09/17 at 16:30; Status UNV Sodium Chloride (NS Flush) 2 ml BID IV FLUSH ; Start 08/09/17 at 21:00; Status UNV Acetaminophen (Tylenol) 650 mg Q4H PRN PO TEMP > 100.4; Start 08/09/17 at 16: 30; Status UNV Ondansetron HCl (Zofran Inj) 4 mg Q6H PRN IVP NAUSEA OR VOMITING; Start at 16:30; Status UNV Prochlorperazine (Compazine Supp) 25 mg Q12H PRN [place] NAUSEA OR VOMITING; Start 08/09/17 at 16:30; Status UNV Acetaminophen (Tylenol) 650 mg Q6H PRN PO PAIN SCALE 1 TO 2; Start 08/09/17 at 16:30; Status UNV Oxycodone/ Acetaminophen (Percocet 5-325 Mg) 1 tab Q6H PRN PO PAIN SCALE 3 TO 5; Start 08/09/17 at 16:30; Status UNV Oxycodone/ Acetaminophen (Percocet 10-325 Mg) 1 tab Q6H PRN PO PAIN SCALE 6 TO 10; Start 08/09/17 at 16:30; Status UNV Morphine Sulfate (Morphine Inj) 2 mg Q3H PRN IV PUSH Pain 3-5; if unable to take PO; Start 08/09/17 at 16:30; Status UNV Morphine Sulfate (Morphine Inj) 4 mg Q3H PRN IV PUSH Pain 6-10;if unable to take PO; Start 08/09/17 at 16:30; Status UNV Naloxone HCl (Narcan Inj) 0.4 mg UNSCH PRN IV PUSH SEE LABEL COMMENTS; Start 08/09/17 at 16:30; Status UNV Senna/Docusate Sodium (Lashay-Colace) 1 tab BID PO ; Start 08/09/17 at 21:00; Status UNV Magnesium Hydroxide (Milk Of Magnesia Liq) 30 ml Q12H PRN PO Mild constipation ; Start 08/09/17 at 16:30; Status UNV Sennosides (Senokot) 17.2 mg Q12H PRN PO Moderate constipation; Start at 16:30; Status UNV Bisacodyl (Dulcolax Supp) 10 mg DAILY PRN RECTAL SEVERE CONSITIPATION; Start 08/09/17 at 16:30; Status UNV Lactulose (Lactulose Liq) 30 ml DAILY PRN PO SEVERE CONSITIPATION; Start 08/09 at 16:30; Status UNV Dextrose (D50w (Vial) Inj) 50 ml UNSCH PRN IV PUSH HYPOGLYCEMIA-SEE COMMENTS; Start 08/09/17 at 16:30; Status UNV Glucagon (Glucagon Inj) 1 mg UNSCH PRN OTHER HYPOGLYCEMIA-SEE COMMENTS; Start 08/09/17 at 16:30; Status UNV Insulin Aspart (NovoLOG SUPPLEMENTAL SCALE) 1 ACHS SLIDING SCALE SQ ; Start at 17:00; Status UNV Family History history of tobacco abuse Social History History of alcohol abuse quit 5 months ago Tobacco abuse quit in 2014 Denies any illicits Physical Exam Vital Signs Vital Signs Date Time Temp Pulse Resp B/P (MAP) Pulse Ox O2 Delivery O2 Flow Rate FiO2 08/09/17 13:42 90 18 130/64 (86) 100 Room Air 08/09/17 13:42 83 18 130/64 (86) 100 Room Air 08/09/17 10:48 100 17 08/09/17 10:45 97.6 103 16 147/73 (97) 98 Physical Exam GENERAL: This is a well-nourished, well-developed patient, in no apparent distress. SKIN: No rashes, ecchymoses or lesions. Cool and dry. HEAD: Atraumatic. Normocephalic. No temporal or scalp tenderness. EYES: Pupils equal round and reactive. Extraocular motions intact. No scleral icterus. No injection or drainage. ENT: Nose without bleeding, purulent drainage or septal hematoma. Throat without erythema, tonsillar hypertrophy or exudate. Uvula midline. Airway patent. NECK: Trachea midline. No JVD or lymphadenopathy. Supple, nontender, no meningeal signs. CARDIOVASCULAR: Regular rate and rhythm without murmurs, gallops, or rubs. RESPIRATORY: Clear to auscultation. Breath sounds equal bilaterally. No wheezes , rales, or rhonchi. GASTROINTESTINAL: Abdomen soft, non-tender, nondistended. No hepato-splenomegaly , or palpable masses. No guarding. MUSCULOSKELETAL: Extremities without clubbing, cyanosis, or edema. No joint tenderness, effusion, or edema noted. No calf tenderness. Negative Homans sign bilaterally. NEUROLOGICAL: Awake and alert. Cranial nerves II through XII intact. Motor and sensory grossly within normal limits. Five out of 5 muscle strength in all muscle groups. Normal speech. Laboratory Laboratory Tests Test 08/09/17 11:55 08/09/17 12:20 08/09/17 13:50 White Blood Count 12.5 Red Blood Count 5.29 Hemoglobin 17.1 Hematocrit 50.5 Mean Corpuscular Volume 95.4 Mean Corpuscular Hemoglobin 32.3 Mean Corpuscular Hemoglobin Concent 33.8 Red Cell Distribution Width 14.9 Platelet Count 413 Mean Platelet Volume 8.9 Neutrophils (%) (Auto) 79.6 Lymphocytes (%) (Auto) 11.4 Monocytes (%) (Auto) 7.8 Eosinophils (%) (Auto) 0.7 Basophils (%) (Auto) 0.5 Neutrophils # (Auto) 10.0 Lymphocytes # (Auto) 1.4 Monocytes # (Auto) 1.0 Eosinophils # (Auto) 0.1 Basophils # (Auto) 0.1 CBC Comment DIFF FINAL Differential Comment Prothrombin Time 11.4 Prothromb Time International Ratio 1.0 Activated Partial Thromboplast Time 26.4 Lactic Acid Level 2.0 Urine Color LIGHT-RED Urine Turbidity CLOUDY Urine pH 5.5 Urine Specific Mcdonald 1.021 Urine Protein 30 Urine Glucose (UA) TRACE Urine Ketones NEG Urine Occult Blood LARGE Urine Nitrite NEG Urine Bilirubin NEG Urine Urobilinogen LESS THAN 2.0 Urine Leukocyte Esterase NEG Urine RBC 70 Urine WBC 3 Urine Squamous Epithelial Cells 1 Urine Uric Acid Crystals FEW Urine Amorphous Sediment OCC Urine Bacteria OCC Urine Mucus FEW Microscopic Urinalysis Comment CULT NOT INDICATED Blood Urea Nitrogen 39 Creatinine 1.63 Random Glucose 120 Total Protein 7.3 Albumin 2.9 Calcium Level 8.2 Magnesium Level 2.2 Alkaline Phosphatase 74 Aspartate Amino Transf (AST/SGOT) 25 Alanine Aminotransferase (ALT/SGPT) 43 Total Bilirubin 0.7 Sodium Level 139 Potassium Level 3.9 Chloride Level 110 Carbon Dioxide Level 20.3 Anion Gap 9 Estimat Glomerular Filtration Rate 41 Total Creatine Kinase 37 Result Diagram: 08/09/17 1155 08/09/17 1350 Caprini VTE Risk Assessment Caprini VTE Risk Assessment: Mod/High Risk (score >= 2) Caprini Risk Assessment Model Point Value = 1 Point Value = 2 Point Value = 3 Point Value = 5 Age 41-60 Minor surgery BMI > 25 kg/m2 Swollen legs Varicose veins or History of unexplained or recurrent spontaneous Oral contraceptives or hormone replacement Sepsis (< 1 month) Serious lung disease, including pneumonia (< 1 month) Abnormal pulmonary function Acute myocardial infarction Congestive heart failure (< 1 month) History of inflammatory bowel disease Medical patient at bed rest Age 61-74 Arthroscopic surgery Major open surgery (> 45 min) Laparoscopic surgery (> 45 min) Malignancy Confined to bed (> 72 hours) Immobilizing plaster cast Central venous access Age >= 75 History of VTE Family history of VTE Factor V Leiden Prothrombin [id number] Lupus anticoagulant Anticardiolipin antibodies Elevated serum homocysteine Heparin-induced thrombocytopenia Other congenital or acquired thrombophilia Stroke (< 1 month) Elective arthroplasty Hip, pelvis, or leg fracture Acute spinal cord injury (< 1 month) Prophylaxis Regimen Total Risk Factor Score Risk Level Prophylaxis Regimen 0-1 Low Early ambulation 2 Moderate Order ONE of the following: *Sequential Compression Device (SCD) *Heparin 5000 units SQ BID 3-4 Higher Order ONE of the following medications: *Heparin 5000 units SQ TID *Enoxaparin/Lovenox 40 mg SQ daily (WT < 150 kg, CrCl > 30 mL/min) *Enoxaparin/Lovenox 30 mg SQ daily (WT < 150 kg, CrCl > 10-29 mL/min) *Enoxaparin/Lovenox 30 mg SQ BID (WT < 150 kg, CrCl > 30 mL/min) AND/OR *Sequential Compression Device (SCD) 5 or more Highest Order ONE of the following medications: *Heparin 5000 units SQ TID (Preferred with Epidurals) *Enoxaparin/Lovenox 40 mg SQ daily (WT < 150 kg, CrCl > 30 mL/min) *Enoxaparin/Lovenox 30 mg SQ daily (WT < 150 kg, CrCl > 10-29 mL/min) *Enoxaparin/Lovenox 30 mg SQ BID (WT < 150 kg, CrCl > 30 mL/min) AND *Sequential Compression Device (SCD) Assessment and Plan Assessment and Plan Generalized weakness will need physical therapy and occupational therapy and SNF at discharge We'll place in observation Recent stenting and STEMI continue on BRILINTA and aspirin Cardiomyopathy continue on his ZOLL LifeVest BPH continue on Ko catheter. As well as Flomax Diabetes continue on sliding scale with Accu-Cheks before meals and at bedtime Hypertension resume home medications Hyperlipidemia resume home medications statin Renal insufficiency continue to monitor A.m. labs Code Status FULL CODE Discussed Condition With Emergency room physician as well as patient and RN AND case management Rich Bazzi DO Aug 09, 2017 16:45
[2017-08-09] MEDS: INSULIN ASPART SUPPLEMENTAL SCALE SQ SCH ×2 (17:00→20:06)
[2017-08-09] MEDS: TAMSULOSIN HCL 0.4 MG CAP PO SCH (17:48)
[2017-08-09] MEDS: LISINOPRIL 5 MG TAB PO SCH (17:48)
[2017-08-09] MEDS: CHOLECALCIFEROL (VIT D3) 1000 UNIT TAB PO SCH (18:08)
[2017-08-09] MEDS: TIOTROPIUM BROMIDE 18 MCG INH INH SCH (18:10)
[2017-08-09] MEDS: SODIUM CHLORIDE 0.9% FLUSH 10 ML FLUSH IV FLUSH SCH (19:57)
[2017-08-09] MEDS: ATORVASTATIN 80 MG TAB PO SCH (19:58)
[2017-08-09] MEDS: DOCUSATE SODIUM 50 MG/SENNA 8.6 MG TAB PO SCH (19:58)
[2017-08-09] MEDS: CARVEDILOL 6.25 MG TAB PO SCH (19:58)
[2017-08-09] MEDS: BUDESONIDE-FORMOTEROL 160/4.5 MCG INHALER INH SCH (19:59)
[2017-08-09] MEDS ORDERED: TICAGRELOR 90 MG TAB PO SCH (21:00)
[2017-08-09] MEDS ORDERED: BUDESONIDE-FORMOTEROL 80/4.5 MCG INHALER INH SCH (21:00)
[2017-08-09] MEDS: TICAGRELOR 90 MG TAB PO SCH (21:25)
[2017-08-10] VITALS (7 sets, daily range): BP systolic 98–131; BP diastolic 52–66; PULSE 66–83; RESP 17–18; TEMP 97.6–98.9; O2SAT 96–98
[2017-08-10] MEDS: ISOSORBIDE MONONITRATE 30 MG TAB PO SCH (06:00)
[2017-08-10 07:48] LABS: ALT (GPT) 40 U/L (12-78); ANION GAP 8 MEQ/L (5-15); AST (GOT) 25 U/L (15-37); BICARBONATE 21.6 MEQ/L (21.0-32.0); BLOOD UREA NITROGEN 41 MG/DL (7-18); CHLORIDE 108 MEQ/L (98-107); GLOMERULAR FILTRATION RATE 38 ML/MIN (>89); MAGNESIUM 2.3 MG/DL (1.5-2.5); POTASSIUM 4.4 MEQ/L (3.5-5.1); SODIUM (NA) 138 MEQ/L (136-145)
[2017-08-10 07:51] LABS: AUTOMATED NEUTROPHIL # 7.8 TH/MM3 (1.8-7.7); BASOPHIL # 0.1 TH/MM3 (0-0.2); EOSINOPHIL # 0.2 TH/MM3 (0-0.4); EOSINOPHIL % 2.2 % (0.0-4.0); HEMATOCRIT 45.5 % (39.0-51.0); HEMO FLAGS DIFF FINAL; LYMPH % 13.7 % (9.0-44.0); LYMPHOCYTE # 1.5 TH/MM3 (1.0-4.8); MEAN CELL VOLUME 94.7 FL (80.0-100.0); MEAN CORPUSCULAR HGB CONC 33.7 % (32.0-36.0); MONO % 10.5 % (0.0-8.0); NEUT % 72.6 % (16.0-70.0); PLATELET COUNT 361 TH/MM3 (150-450); RED CELL DISTRIBUTION WIDTH 15.1 % (11.6-17.2); WHITE BLOOD COUNT 10.7 TH/MM3 (4.0-11.0)
[2017-08-10 07:57] LABS: ALKALINE PHOSPHATASE 71 U/L (45-117); FREE T4 1.41 NG/DL (0.76-1.46); TOTAL BILIRUBIN ADULT 0.8 MG/DL (0.2-1.0)
[2017-08-10] MEDS: INSULIN ASPART SUPPLEMENTAL SCALE SQ SCH ×4 (08:00→20:14)
[2017-08-10] MEDS: SODIUM CHLORIDE 0.9% FLUSH 10 ML FLUSH IV FLUSH SCH ×2 (09:00→20:07)
[2017-08-10] MEDS: DOCUSATE SODIUM 50 MG/SENNA 8.6 MG TAB PO SCH ×2 (09:00→20:07)
[2017-08-10] MEDS: TICAGRELOR 90 MG TAB PO SCH ×2 (10:28→20:07)
[2017-08-10] MEDS: LISINOPRIL 5 MG TAB PO SCH (10:29)
[2017-08-10] MEDS: TAMSULOSIN HCL 0.4 MG CAP PO SCH (10:29)
[2017-08-10] MEDS: ASPIRIN 81 MG CHEW TAB PO SCH (10:30)
[2017-08-10] MEDS: CHOLECALCIFEROL (VIT D3) 1000 UNIT TAB PO SCH (10:30)
[2017-08-10] MEDS: TIOTROPIUM BROMIDE 18 MCG INH INH SCH (10:31)
[2017-08-10] MEDS: BUDESONIDE-FORMOTEROL 160/4.5 MCG INHALER INH SCH ×2 (10:31→20:06)
[2017-08-10] MEDS: CARVEDILOL 6.25 MG TAB PO SCH ×2 (12:09→20:07)
--- NOTE | 2017-08-10 13:21 | HHI.PR ---
Subjective Remarks Patient seen this morning around 11 AM. Says he is feeling all right. Denies any pain. Objective Vital Signs Date Time Temp Pulse Resp B/P (MAP) Pulse Ox O2 Delivery O2 Flow Rate FiO2 08/10/17 11:30 97.8 83 18 102/55 (71) 98 08/10/17 07:46 97.6 80 18 98/56 (70) 98 08/10/17 03:39 98.6 82 17 115/64 (81) 98 08/10/17 00:47 98.9 83 18 131/66 (87) 96 08/09/17 20:52 92 08/09/17 20:00 97 08/09/17 19:38 98.0 84 16 132/73 (92) 98 08/09/17 18:52 98.0 90 16 132/73 (92) 99 08/09/17 18:13 86 18 120/74 (89) 99 08/09/17 18:13 86 18 120/74 (89) 99 Room Air 08/09/17 17:20 100 21 08/09/17 13:42 90 18 130/64 (86) 100 Room Air 08/09/17 13:42 83 18 130/64 (86) 100 Room Air I/O 08/09/17 08/09/17 08/09/17 08/10/17 08/10/17 08/10/17 06:59 14:59 22:59 06:59 14:59 22:59 Intake Total 1000 ml Output Total 300 ml Balance 1000 ml -300 ml Intake IV Total 1000 ml Output Urine Total 300 ml Result Diagram: 08/10/17 0739 08/10/17 0642 Objective Remarks GENERAL: Incision sitting up in bed. Appears comfortable. SKIN: Warm and dry. HEAD: Normocephalic. EYES: No scleral icterus. No injection or drainage. NECK: Supple, trachea midline. No JVD. CARDIOVASCULAR: Regular rate and rhythm without murmurs, gallops, or rubs. RESPIRATORY: Breath sounds equal bilaterally. No accessory muscle use. GASTROINTESTINAL: Abdomen soft, non-tender, nondistended. MUSCULOSKELETAL: No cyanosis, or edema. BACK: Nontender without obvious deformity. No CVA tenderness. A/P Assessment and Plan //Generalized weakness will need physical therapy and occupational therapy and SNF at discharge = Awaiting physical therapy assessment. Patient will need SNF. //Recent stenting and STEMI continue on BRILINTA and aspirin //Cardiomyopathy continue on his ZOLL LifeVest //BPH continue on Ko catheter. As well as Flomax //Diabetes continue on sliding scale with Accu-Cheks before meals and at bedtime = Blood sugars reviewed, 136 this morning. Continue insulin sliding scale and diabetic diet. //Hypertension resume home medications //Hyperlipidemia resume home medications statin //Renal insufficiency continue to monitor. Creatinine continues her recent baseline. Continue to monitor. Discharge Planning Awaiting PT evaluation. Patient will need to go to SNF. Delio Coburn MD Aug 10, 2017 13:21
[2017-08-10 16:10] LABS: HEMOGLOBIN A1a 1.1 %; HEMOGLOBIN Ao 83.1 %; HEMOGLOBIN LA1C 1.9 %; HEMOGLOBIN P3 4.1 %
[2017-08-10] MEDS ORDERED: NOVOLOGSS SQ (17:52)
[2017-08-10] MEDS: ATORVASTATIN 80 MG TAB PO SCH (20:07)
--- NOTE | 2017-08-10 23:10 | EKG ---
Date Performed: 08/09/2017 Time Performed: 11:47:52 PTAGE: 82 years EKG: Sinus rhythm INFERIOR MYOCARDIAL INFARCTION ANTEROSEPTAL MYOCARDIAL INFARCTION PREVIOUS TRACING : 07/31/2017 10.40 Compared to the previous tracing inferior ST elevatio n no longer present; anteroseptal Q waves present DOCTOR: Qamar Bethea Interpretating Date/Time 08/10/2017 23:08:24
[2017-08-11 00:36] VITALS: BP 101/61; PULSE 78; RESP 18; TEMP 98.1; O2SAT 97
[2017-08-11 03:31] VITALS: BP 118/65; PULSE 82; RESP 18; TEMP 98.4; O2SAT 96
[2017-08-11] MEDS: ISOSORBIDE MONONITRATE 30 MG TAB PO SCH (06:46)
[2017-08-11 08:00] VITALS: BP 100/53; PULSE 65; PULSE 80; RESP 18; TEMP 98; O2SAT 98
[2017-08-11] MEDS: INSULIN ASPART SUPPLEMENTAL SCALE SQ SCH ×2 (08:00→12:00)
[2017-08-11 08:31] VITALS: O2SAT 97
[2017-08-11] MEDS: TAMSULOSIN HCL 0.4 MG CAP PO SCH (08:41)
[2017-08-11] MEDS: CHOLECALCIFEROL (VIT D3) 1000 UNIT TAB PO SCH (08:41)
[2017-08-11] MEDS: DOCUSATE SODIUM 50 MG/SENNA 8.6 MG TAB PO SCH (08:42)
[2017-08-11] MEDS: TICAGRELOR 90 MG TAB PO SCH (08:42)
[2017-08-11] MEDS: ASPIRIN 81 MG CHEW TAB PO SCH (08:42)
[2017-08-11] MEDS: CARVEDILOL 6.25 MG TAB PO SCH (08:42)
[2017-08-11] MEDS: LISINOPRIL 5 MG TAB PO SCH (08:42)
[2017-08-11] MEDS: BUDESONIDE-FORMOTEROL 160/4.5 MCG INHALER INH SCH (08:43)
[2017-08-11] MEDS: TIOTROPIUM BROMIDE 18 MCG INH INH SCH (08:44)
[2017-08-11] MEDS: SODIUM CHLORIDE 0.9% FLUSH 10 ML FLUSH IV FLUSH SCH (08:53)
--- NOTE | 2017-08-11 10:04 | HHI.PR ---
Subjective Remarks Follow up for generalized weakness. The patient reports continued generalized weakness. He was able to ambulate a few steps with PT yesterday. He is looking forward to going to rehab. Denies any chest pain, palpitations, shortness of breath, or abdominal complaints. Diarrhea resolved but he has not yet had a BM since his arrival. He is tolerating oral intake. Objective Vitals Vital Signs Date Time Temp Pulse Resp B/P (MAP) Pulse Ox O2 Delivery O2 Flow Rate FiO2 08/11/17 08:31 97 21 08/11/17 08:00 98.0 80 18 100/53 (69) 98 08/11/17 05:27 21 08/11/17 03:31 98.4 82 18 118/65 (82) 96 08/11/17 00:36 98.1 78 18 101/61 (74) 97 08/10/17 22:22 66 08/10/17 19:50 97.8 76 18 114/52 (72) 96 08/10/17 15:18 97.8 79 18 108/59 (75) 98 08/10/17 11:30 97.8 83 18 102/55 (71) 98 I/O 08/10/17 08/10/17 08/10/17 08/11/17 08/11/17 08/11/17 06:59 14:59 22:59 06:59 14:59 22:59 Output Total 300 ml Balance -300 ml Output Urine Total 300 ml # Voids 2 Result Diagram: 08/10/17 0739 08/10/17 0642 Imaging Last Impressions Chest X-Ray 08/09/17 0000 Signed Impressions: Service Date/Time: Wednesday, August 09, 2017 13:14 - CONCLUSION: 1. No acute cardiopulmonary disease. Cheo Cobb MD Objective Remarks GENERAL: Well-nourished, well-developed pleasant elderly male patient in [facility]. SKIN: Warm and dry. No rash. HEENT: Normocephalic. Atraumatic. Pupils equal and round. Mucous membranes pink and moist. CARDIOVASCULAR: Regular rate and rhythm. S1, S2 noted. No murmur appreciated. Life vest in place. RESPIRATORY: No accessory muscle use. Clear to auscultation. Breath sounds equal bilaterally. GASTROINTESTINAL: Abdomen soft, non-tender, nondistended. Normoactive bowel sounds x4. MUSCULOSKELETAL: No obvious deformities. Extremities without clubbing, cyanosis , or edema. NEUROLOGICAL: Awake and alert. No obvious cranial nerve deficits. Motor grossly within normal limits however with overall generalized weakness, worse with b/l lower extremities. Normal speech. PSYCHIATRIC: Appropriate mood and affect; insight and judgment normal. Medications and IVs Current Medications Medications (Trade) Dose Ordered Sig/Maury Route Start Time Stop Time Status Last Admin (Aspirin Chew) 81 mg DAILY PO 08/10/17 09:00 08/11/17 08:42 (Lipitor) 80 mg HS PO 08/09/17 21:00 08/10/17 20:07 (Symbicort 160-4.5 Inh) 1 puff Q12HR INH 08/09/17 21:00 08/11/17 08:43 (Coreg) 6.25 mg BID PO 08/09/17 21:00 08/11/17 08:42 (Vitamin D3) 1,000 units DAILY PO 08/09/17 17:00 08/11/17 08:41 (Imdur) 30 mg DAILY@07 PO 08/10/17 07:00 08/11/17 06:46 (Prinivil) 5 mg DAILY PO 08/09/17 17:00 08/11/17 08:42 (Flomax) 0.4 mg DAILY PO 08/09/17 17:00 08/11/17 08:41 (Spiriva Inh) 18 mcg DAILY INH 08/09/17 17:15 08/11/17 08:44 (NS Flush) 2 ml UNSCH PRN IV FLUSH 08/09/17 16:30 08/09/17 21:25 (NS Flush) 2 ml BID IV FLUSH 08/09/17 21:00 08/11/17 08:53 (Tylenol) 650 mg Q4H PRN PO 08/09/17 16:30 (Zofran Inj) 4 mg Q6H PRN IVP 08/09/17 16:30 (Compazine Supp) 25 mg Q12H PRN RECTAL 08/09/17 16:30 (Tylenol) 650 mg Q6H PRN PO 08/09/17 16:30 (Narcan Inj) 0.4 mg UNSCH PRN IV PUSH 08/09/17 16:30 (Lashay-Colace) 1 tab BID PO 08/09/17 21:00 08/11/17 08:42 (Milk Of Magnesia Liq) 30 ml Q12H PRN PO 08/09/17 16:30 (Senokot) 17.2 mg Q12H PRN PO 08/09/17 16:30 08/10/17 12:09 (Dulcolax Supp) 10 mg DAILY PRN RECTAL 08/09/17 16:30 (Lactulose Liq) 30 ml DAILY PRN PO 08/09/17 16:30 (D50w (Vial) Inj) 50 ml UNSCH PRN IV PUSH 08/09/17 16:30 (Glucagon Inj) 1 mg UNSCH PRN OTHER 08/09/17 16:30 (NovoLOG SUPPLEMENTAL SCALE) 1 ACHS SLIDING SCALE SQ 08/09/17 17:00 08/10/17 17:00 (Brilinta) 90 mg BID PO 08/09/17 21:00 08/11/17 08:42 A/P Problem List: (1) Weakness of both lower extremities ICD Code: R29.898 - Other symptoms and signs involving the musculoskeletal system Status: Acute (2) Chronic kidney disease, stage III (moderate) ICD Code: N18.3 - Chronic kidney disease, stage 3 (moderate) (3) Type 2 diabetes mellitus with diabetic chronic kidney disease ICD Code: E11.22 - Type 2 diabetes mellitus with diabetic chronic kidney disease (4) Chronic systolic congestive heart failure ICD Code: I50.22 - Chronic systolic (congestive) heart failure (5) STEMI (ST elevation myocardial infarction) ICD Code: I21.3 - STEMI (ST elevation myocardial infarction) Status: Acute (6) Obstructive uropathy ICD Code: N13.9 - Obstructive and reflux uropathy, unspecified (7) HOMERO (acute kidney injury) ICD Code: N17.9 - HOMERO (acute kidney injury) Status: Acute (8) Ischemic cardiomyopathy ICD Code: I25.5 - Ischemic cardiomyopathy Status: Chronic (9) Unsteady gait ICD Code: R26.81 - Unsteadiness on feet (10) COPD (chronic obstructive pulmonary disease) ICD Code: J44.9 - Chronic obstructive pulmonary disease, unspecified Status: Chronic (11) CAD, multiple vessel ICD Code: I25.10 - Atherosclerotic heart disease of [place] coronary artery without angina pectoris Assessment and Plan 82-year-old male with history of CAD s/p recent STEMI and stenting, cardiomyopathy with life vest, HTN, HLD, COPD, presents with generalized weakness after recent hospitalization Generalized weakness: suspect multifactorial with recent hospitalization for STEMI and cardiomyopathy, likely deconditioned. -Patient will need physical therapy and occupational therapy at SNF at discharge -Case management assisting with discharge planning CAD/HTN/HLD: s/p recent stenting and STEMI - continue on coreg, lisinopril, Brilinta and aspirin Cardiomyopathy: Echo 08/02/17 with EF 20% diffuse global hypokinesis aortic valve sclerosis -continue his LifeVest, BB, EDISON, statin BPH: continue on Ko catheter and Flomax Diabetes Mellitus: chronic -continue on sliding scale with Accu-Cheks before meals and at bedtime -Blood sugars reviewed. Continue insulin sliding scale and diabetic diet. Chronic Renal insufficiency: Cr mostly at baseline. -continue to monitor. -avoid nephrotoxins DVT Prophylaxis: teds/SCDs Discharge Planning Discharge to SNF when arrangements made by case management. 1230hrs: Patient accepted to [facility]. Will discharge to SNF. Discharge patient to SNF Condition on discharge: Stable Heart Healthy/Diabetic Diet as tolerated Ad Thu activity Rx written: no new meds, stop metformin Follow-up with primary care physician Dr. Ernst in 2-3 days. Katelyn Lopez PA-C Aug 11, 2017 10:04 am
[2017-08-11 12:00] VITALS: BP 100/54; PULSE 74; RESP 18; TEMP 97.5; O2SAT 98
== END 2017-08-11 15:45 | disposition home or self-care (01) ==
LOC: NEPC 10:36 → NEDA 15:48 → NEPGCP 18:33
PROVIDERS: ADMIT Internal Medicine; ATTEND Internal Medicine
DX: R53.1 Weakness (principal); N18.3 Chronic kidney disease, stage 3 (moderate); Z79.01 Long term (current) use of anticoagulants; E78.00 Pure hypercholesterolemia, unspecified; I50.22 Chronic systolic (congestive) heart failure; I13.0 Hypertensive heart and chronic kidney disease with heart failure and stage 1 through stage 4 chronic kidney disease, or unspecified chronic kidney disease; I21.9 Acute myocardial infarction, unspecified; Z79.899 Other long term (current) drug therapy; Z79.84 Long term (current) use of oral hypoglycemic drugs; Z95.5 Presence of coronary angioplasty implant and graft; J44.1 Chronic obstructive pulmonary disease with (acute) exacerbation; I21.4 Non-ST elevation (NSTEMI) myocardial infarction; I25.2 Old myocardial infarction; E11.22 Type 2 diabetes mellitus with diabetic chronic kidney disease; N13.8 Other obstructive and reflux uropathy; N40.1 Benign prostatic hyperplasia with lower urinary tract symptoms; N17.9 Acute kidney failure, unspecified; I25.5 Ischemic cardiomyopathy; R26.81 Unsteadiness on feet; I25.10 Atherosclerotic heart disease of native coronary artery without angina pectoris
CPT/HCPCS: 71010; 80053; 81001; 82550; 82948; 83036; 83605; 83735; 84100; 84439; 84443; 85025; 85610; 85730; 93005; 96361; 96372; 96374; 97162; 97167; 99285; G0378; G8987; G8988; J1815; J2270; J7030; P9612